=== PATIENT | female | born 1960 | race Caucasian/White ===

== ENCOUNTER 2016-04-28 12:43 | Emergency (ER) | payer OTHER ==
--- NOTE | 2016-04-28 12:55 | EKG Report ---
Test Performed on : 04/28/2016 12:52:40 PM Test Reason : cp Blood Pressure : / mmHG Vent. Rate : 218 BPM Atrial Rate : 110 BPM P-R Int : 000 ms QRS Dur : 082 ms QT Int : 250 ms P-R-T Axes : 053 017 094 degrees QTc Int : 476 ms Undetermined rhythm T wave abnormality, consider lateral ischemia Abnormal ECG When compared with ECG of 08-APR-2015 22:49, Current undetermined rhythm precludes rhythm comparison, needs review Criteria for Inferior infarct are no longer present ST no longer depressed in Inferior leads ST no longer elevated in Lateral leads Nonspecific T wave abnormality, worse in Anterolateral leads Unconfirmed Result
[2016-04-28] MEDS ORDERED: NORCO-7.5 PO ONE ×2 (13:15→16:34)
[2016-04-28] MEDS ORDERED: ASPIRIN PO STA (13:15)
--- NOTE | 2016-04-28 13:29 | PROVIDER DOCUMENTATION ---
HPI-General Adult - General Chief Complaint: Chest Pain Stated Complaint: BACK/NECK/LEG PAIN Time Seen by Provider: 04/28/16 13:01 Source: patient Allergies/Adverse Reactions: Patient Allergies Allergy/AdvReac Type Severity Reaction Status Date / Time Penicillins Allergy Intermediate swelling, Verified 04/05/16 20:36 rash latex Allergy RASH Verified 04/05/16 20:36 Home Medications: Home Medication List Medication Instructions Recorded Confirmed Last Taken Type Hydrocodone/APAP 5 mg/325 mg 1 each PO Q6H PRN PRN #10 tablet 04/06/16 Unknown Rx [[place]-5] Hydrocodone/APAP 5 mg/325 mg 1 each PO Q6H PRN PRN #10 tablet 04/28/16 Unknown Rx [[place]-5] - History of Present Illness -Gen Adult Nature of Presenting Problems: patient is a 55 y/o F that presents to the Er with one week of pain all over including ( chest, back, neck, arms, and knees( bilaterally)). patient has some shortness of breath. Denies cough/congestion, fever/chills, or n/v/d. Patient had cardiac stent ( 2 stents). Worried she is having cardiac issues. Location of Pain/Injury: reports: generalized Pain Radiation: reports: no radiation Quality of Pain: reports: aching Severity: reports: mild, moderate Onset/Duration: reports: gradual, 1 week ago Timing: reports: still present, constant Context/Activities at Onset: reports: none Modifying Factors: worse with: movement Associated Symptoms: reports: back/neck pain, chest pain, joint pain, muscle aches, shortness of breath. denies: cough, diaphoresis, diarrhea, dizziness, fever/chills, genitourinary problems, headaches, nausea, vomiting Similar Symptoms Previously?: Yes Recently seen or treated by another doctor?: No Review of Systems - Adult - REVIEW OF SYSTEMS - ADULT Constitutional: denies: chills, fever Eyes: denies: decreased vision, blurred vision, double vision Ears, Nose, Mouth & Throat: denies: ear pain, sinus problem, throat pain, throat swelling Cardiovascular: reports: chest pain. denies: palpitations, syncope Respiratory: reports: shortness of breath. denies: cough, wheezing Gastrointestinal: denies: abdominal pain, diarrhea, frequent heartburn, nausea, vomiting Genitourinary: reports: no symptoms reported Musculoskeletal: reports: bone pain, back pain, joint pain, muscle aches, neck pain Integumentary: reports: no symptoms reported Neurological: denies: dizziness/vertigo, headache/migraines, seizure Psychiatric: reports: no symptoms reported Endocrine: reports: no symptoms reported Hematologic/Lymphatic: reports: no symptoms reported Allergic/Immunologic: reports: no symptoms reported All Other Systems: Reviewed and Negative Past History - Adult - PAST MEDICAL HISTORY-ADULT Review of Records: reports: Old Records Reviewed, Nursing Assessment Review, Medications Reviewed Cardiovascular: reports: CAD, HTN, hyperlipidemia, MS Respiratory: reports: asthma Musculoskeletal: reports: chronic pain, intervertebral disc disease, neck/back injury Neurological: Psychiatric: reports: anxiety Endocrine/Immune: reports: Diabetes - PRIOR SURGERIES/PROCEDURES Surgical/Procedure History: reports: cholecystectomy, hysterectomy, other ( tubal ligation) - IMMUNIZATION STATUS Childhood Immunizations: See Nurse Assessment Flu Vaccine: See Nurse Assessment - FAMILY HISTORY Family History: reviewed, not pertinent - SOCIAL HISTORY Smoking: cigarettes, less than 1 pack/day Alcohol Use Frequency: occasionally Living Situation: family Physical Exam-General - PHYSICAL EXAM-ADULT Initial Vital Signs Reviewed: Yes - CONSTITUTIONAL General Appearance: alert, anxious - EYES Eyes: PERRL/EOMI, pink conjunctivae - HEAD, EARS, NOSE, MOUTH & THROAT HENMT: normocephalic/atraumatic, moist mucous membranes, normal ENT inspection - NECK Neck: full range of motion, normal inspection. negative: lymphadenopathy - RESPIRATORY Respiratory: lungs clear, normal breath sounds, no respiratory distress, no accessory muscle use - CARDIOVASCULAR Cardiovascular: no gallop, no murmur, tachycardia - GASTROINTESTINAL (ABDOMEN) Abdominal Exam: normal bowel sounds, non tender, soft, no organomegaly, no pulsatile mass - MUSCULOSKELETAL Extremity: normal range of motion, normal inspection, no pedal edema, normal capillary refill, pelvis stable - SKIN Integumentary: normal color, warm/dry - NEUROLOGIC Neurologic: grossly normal, no motor/sensory deficits - PSYCHIATRIC Psych/Mental Status: oriented x 3, anxious Progress - PLAN OF CARE/RESULTS Progress/Plan/Lab Results: plan of care-labs, cxr, ekg, cspine, meds 1454-due to elevated d-dimer, ct angio pe study, venous Doppler bilateral legs Vital Signs Temp Pulse Resp BP Pulse Ox 04/28/16 16:05 80 16 131/86 100 04/28/16 12:44 97.6 F 117 H 22 181/122 100 Penicillins Allergy (Intermediate, Verified 04/05/16 20:36) swelling, rash latex Allergy (Verified 04/05/16 20:36) RASH Hydrocodone/APAP 5 mg/325 mg [[place]-5] 1 each PO Q6H PRN PRN #10 tablet Hydrocodone/APAP 5 mg/325 mg [[place]-5] 1 each PO Q6H PRN PRN #10 tablet I&O 04/27/16 04/28/16 04/29/16 06:59 06:59 06:59 Output Total 30 Balance -30 Laboratory 04/28/16 04/28/16 04/28/16 15:00 15:00 13:49 WBC RBC Hgb Hct MCV MCH MCHC RDW Std Deviation Plt Count MPV Immature Gran % (Auto) Neut % (Auto) Lymph % (Auto) [place] % (Auto) Eos % (Auto) Baso % (Auto) Immature Gran # (Auto) Neut # (Auto) Lymph # (Auto) [place] # (Auto) Eos # (Auto) Baso # (Auto) PT INR PTT (Act[place] FS) D-Dimer Sodium Potassium Chloride Carbon Dioxide Anion Gap BUN Creatinine Estimated GFR/1.73 m2 BUN/Creatinine Ratio Glucose Calculated Osmolality Calcium Magnesium Total Bilirubin AST ALT Alkaline Phosphatase Creatine Kinase 19 L Troponin T < 0.010 Drm-[id number]-[id number] Pept Total Protein Albumin Globulin Albumin/Globulin Ratio Urine Source CLEAN CATCH Urine Color YELLOW Urine Turbidity CLEAR Urine pH 5.5 Ur Specific [place] 1.016 Urine Protein TRACE A Ur Glucose (Stick) NEGATIVE Ur Ketones (Stick) NEGATIVE Urine Blood NEGATIVE Urine Nitrite NEGATIVE Urine Bilirubin NEGATIVE Urobilinogen Dipstick NORMAL Urine Leukocytes TRACE A Urine WBC (Auto) <10 Urine RBC (Auto) <10 U Epithel Cells (Auto) <10 Urine Bacteria (Auto) 1+ 04/28/16 04/28/16 04/28/16 13:22 13:22 13:22 WBC RBC Hgb Hct MCV MCH MCHC RDW Std Deviation Plt Count MPV Immature Gran % (Auto) Neut % (Auto) Lymph % (Auto) [place] % (Auto) Eos % (Auto) Baso % (Auto) Immature Gran # (Auto) Neut # (Auto) Lymph # (Auto) [place] # (Auto) Eos # (Auto) Baso # (Auto) PT 10.2 INR 1.00 PTT (Actin FS) 28.6 D-Dimer Sodium Potassium Chloride Carbon Dioxide Anion Gap BUN Creatinine Estimated GFR/1.73 m2 BUN/Creatinine Ratio Glucose Calculated Osmolality Calcium Magnesium Total Bilirubin AST ALT Alkaline Phosphatase Creatine Kinase Troponin T < 0.010 Mis-G-Gmqinejsuox Pept 1184 H Total Protein Albumin Globulin Albumin/Globulin Ratio Urine Source Urine Color Urine Turbidity Urine pH Ur Specific [place] Urine Protein Ur Glucose (Stick) Ur Ketones (Stick) Urine Blood Urine Nitrite Urine Bilirubin Urobilinogen Dipstick Urine Leukocytes Urine WBC (Auto) Urine RBC (Auto) U Epithel Cells (Auto) Urine Bacteria (Auto) 04/28/16 04/28/16 04/28/16 13:22 13:22 13:22 WBC 7.37 RBC 4.33 Hgb 11.3 L Hct 35.6 L MCV 82.2 MCH 26.1 L MCHC 31.7 L RDW Std Deviation 14.8 H Plt Count 513 H MPV 8.7 Immature Gran % (Auto) 0.0 Neut % (Auto) 76.4 H Lymph % (Auto) 14.5 L [place] % (Auto) 7.3 Eos % (Auto) 1.5 Baso % (Auto) 0.3 Immature Gran # (Auto) 0.00 Neut # (Auto) 5.63 Lymph # (Auto) 1.07 L [place] # (Auto) 0.54 Eos # (Auto) 0.11 Baso # (Auto) 0.02 PT INR PTT (Actin FS) D-Dimer 7.21 H Sodium 132 L Potassium 4.0 Chloride 95 L Carbon Dioxide 22 L Anion Gap 15 BUN 15 Creatinine 0.8 Estimated GFR/1.73 m2 > 60 BUN/Creatinine Ratio 19 Glucose 126 H Calculated Osmolality 267 Calcium 9.2 Magnesium 1.9 Total Bilirubin 0.48 AST 13 ALT 14 Alkaline Phosphatase 125 H Creatine Kinase 20 L Troponin T Wnm-[id number]-Jcydtqflpfl Pept Total Protein 8.3 Albumin 3.3 L Globulin 5.0 Albumin/Globulin Ratio 0.7 Urine Source Urine Color Urine Turbidity Urine pH Ur Specific [place] Urine Protein Ur Glucose (Stick) Ur Ketones (Stick) Urine Blood Urine Nitrite Urine Bilirubin Urobilinogen Dipstick Urine Leukocytes Urine WBC (Auto) Urine RBC (Auto) U Epithel Cells (Auto) Urine Bacteria (Auto) Orders Category Date Time Status Cardiac Monitoring DIRECTED Care 04/28/16 13:15 Active Saline Loc NOW Care 04/28/16 13:15 Active ANGIOGRAM/PULMONARY ARTERIES [CT] Stat Exams 04/28/16 14:54 Completed CERVICAL SPINE COMPLETE [RAD] Stat Exams 04/28/16 13:15 Draft CHEST-2 VIEWS [RAD] Stat Exams 04/28/16 13:15 Draft CBC WITH ELECTRONIC DIFF [HEME] Stat Lab 04/28/16 13:22 Completed CK PROFILE [SP CHEM] Stat Lab 04/28/16 13:22 Completed CK PROFILE [SP CHEM] Stat Lab 04/28/16 15:00 Completed COMPREHENSIVE METABOLIC PANEL [CHEM] Stat Lab 04/28/16 13:22 Completed D-DIMER [CHEM] Stat Lab 04/28/16 13:22 Completed MAGNESIUM [CHEM] Stat Lab 04/28/16 13:22 Completed PRO B-NATRIURETIC PEPTIDE Stat Lab 04/28/16 13:22 Completed PROTIME WITH INR [COAG] Stat Lab 04/28/16 13:22 Completed PTT [COAG] Stat Lab 04/28/16 13:22 Completed TROPONIN T Stat Lab 04/28/16 13:22 Completed TROPONIN T Stat Lab 04/28/16 15:00 Completed UA NIMS W/REFLEX CULT [URINALYSIS] Stat Lab 04/28/16 13:49 Completed URINE CULTURE [RM] Routine Lab 04/28/16 15:28 Received Aspirin Med 04/28/16 13:15 Discontinued 325 mg PO STAT STA Hydrocodone/APAP 7.5 mg/325 mg [[place]-7.5] Med 04/28/16 13:15 Discontinued 1 each PO NOW ONE EKG [EKG] Stat Ther 04/28/16 12:49 Draft US [Venous U/S Bilateral Legs] [CV] Stat Ther 04/28/16 14:54 Completed pt will be d/c home f/u with pcp or surgeon for enlarged lymph nodes. pt was clinically stable, rx given - EKG 1 Time of EKG reading by physician:: 12:52 EKG Read and Signed by:: Mei San EKG Interpretation (*Must complete 3 of following elements*): Abnormal Rate: 218 (rate is about 110, picking up extra t wave) Rhythm: sinus tachycardia [place]: normal QRS: normal ST Wave: non-specific ST changes - XRAY 1 XRAY Study: Chest Impression: Normal XRAY Interpretation: NML 2 XRAY Study: C-Spine Impression: Abnormal XRAY Interpretation: DDD, no fx - CT/MRI 1 CT Study: Angiogram (PE study) Impression: Abnormal CT Results: No PE, axillary adenopathy, splenomegaly, and coronary artherosclerosis - ULTRASOUND (By Radiology) 1 US Study: Lower Ext Impression: Normal US Results: no dvt bilaterally Departure - Departure Time of Disposition Order: 16:19 DIAGNOSIS: Enlarged lymph nodes, Generalized pain, Splenomegaly Disposition: HOME 01 Certified Medical Emergency: Emergent Condition: Stable Additional Instructions: follow up with your doctor for pain control and enlarged lymph nodes. ED Follow Up Instructions: You have been treated by a care provider in the Emergency Department. These instructions are being provided to you so you can have an understanding of how to care for yourself upon discharge. Upon discharge from the Emergency Department, you are responsible for making arrangements for follow-up care by a physician of your choice. Take all prescribed medications as directed. Return to the Emergency Department immediately for any new or worsening symptoms. You may call the Physician Referral phone number at [phone] to obtain a list of Physicians who are taking new patients. Referrals: None,PCP [Primary Care Provider] - Robin Murdock MD [STAFF PHYSICIAN] - Call for Appoint. 1-2days Fadumo Ortiz MD [STAFF PHYSICIAN] - Call for Appoint. 1-2days Instructions: Muscle Pain, Adult Attestation - Scribe Verification/Attestation Scribe:: Kiran Solitario Acting as Scribe for:: Mei San Scribe documention review:: This chart was documented by a scribe and accurately reflects the service the provider performed and the decisions made by the provider. Physician Attestation - Physician Attestation I, the provider, attest to the following statement:: Mei San Physician documentation Attestation:: This documentation recorded by the scribe accurately reflects the service I personally performed and the decisions made by me.
[2016-04-28 13:35] LABS: MANUAL DIFF NEEDED? NO
[2016-04-28 13:42] LABS: BASO% 0.3 % (0.0-0.8); EOS# 0.11 X1000 (0.0-0.7); EOS% 1.5 % (0.0-10.0); HEMATOCRIT 35.6 % (37.0-47.0); HEMOGLOBIN 11.3 g/dL (12.0-16.0); LYMPH# 1.07 X1000 (1.2-3.4); LYMPH% 14.5 % (20.5-51.1); MCH 26.1 PG (27-31); MCHC 31.7 g/dL (33-37); MCV 82.2 FL (81-99); MONO# 0.54 X1000 (0.11-0.59); MONO% 7.3 % (1.7-9.3); MPV 8.7 FL (7.4-10.4); NEUT% 76.4 % (42.2-75.2); PLT 513 X1000 (130-400); RBC 4.33 XMIL (4.2-5.4)
[2016-04-28 14:02] LABS: URINE MICRO REVIEW NEEDED? NO; URINE SOURCE CLEAN CATCH
[2016-04-28 14:07] LABS: BILIRUBIN URINE NEGATIVE (NEGATIVE); BLOOD URINE NEGATIVE (NEGATIVE); COLOR YELLOW; GLUCOSE URINE NEGATIVE (NEGATIVE); LEUKOCYTES URINE TRACE (NEGATIVE); NITRITE URINE NEGATIVE (NEGATIVE); PH URINE 5.5; PROTEIN URINE TRACE mg/dL (NEGATIVE); SP GRAVITY URINE 1.016; TURBIDITY URINE CLEAR (CLEAR); UROBILINOGEN URINE NORMAL (NORMAL)
[2016-04-28 14:09] LABS: UR EPITHELIAL CELLS <10 /HPF (<10); URINE BACTERIA 1+ /HPF; URINE CULTURE NEEDED? YES; URINE RBC <10 /HPF (<10); URINE WBC <10 /HPF (<10)
[2016-04-28 14:28] LABS: AGAP 15; ALBUMIN 3.3 g/dL (3.5-5.0); ALKALINE PHOSPHATASE 125 U/L (32-104); BUN 15 mg/dL (8-22); CALCIUM 9.2 mg/dL (8.8-10.2); CHLORIDE 95 mmol/L (98-107); CK PROFILE 20 U/L (24-173); COSMO 267; GOT 13 U/L (10-30); GPT 14 U/L (10-36); MAGNESIUM 1.9 mg/dL (1.5-2.7); PROTIME 10.2 Seconds (9.2-11.7); PTT 28.6 Seconds (22.0-36.0); SODIUM 132 mmol/L (136-145); TCO2 22 mmol/L (25-35); TOTAL BILIRUBIN 0.48 mg/dL (0.20-1.00); TOTAL PROTEIN 8.3 g/dL (6.3-8.3)
--- NOTE | 2016-04-28 14:29 | Diag Imaging Result Document ---
PROCEDURE NAME: CHEST-2 VIEWS - 04/28/2016 CHEST X-RAY, 2 VIEWS: COMPARISON: 04/08/2015. FINDINGS: The lungs are normally expanded and clear. Heart size and mediastinal contours are normal. No pneumothorax or pleural effusion. IMPRESSION: Negative exam.
--- NOTE | 2016-04-28 14:32 | Diag Imaging Result Document ---
PROCEDURE NAME: CERVICAL SPINE COMPLETE - 04/28/2016 CERVICAL SPINE, 6 VIEWS: COMPARISON: 03/22/2013. FINDINGS: There may be some early disk degeneration at C4-5 and C5-6. Alignment is anatomic. No fracture or subluxation. Vertebral body heights are preserved. IMPRESSION: Early degenerative disk disease. No acute disease.
--- NOTE | 2016-04-28 15:46 | Diag Imaging Result Document ---
PROCEDURE NAME: ANGIOGRAM/PULMONARY ARTERIES - 04/28/2016 CT OF THE CHEST WITH INTRAVENOUS CONTRAST AND CLARITY: FINDINGS: There are no filling defects in the pulmonary arteries. The study is somewhat suboptimal due to beam-hardening artifact from the patient's arm. The aorta is not distended and there is no evidence of dissection. There are calcifications in the left anterior descending and circumflex artery. There is atelectasis versus fibrosis in the lingula. There is some patchy air trapping present in both lungs. No focal consolidation is present. There are no previous studies. There is no evidence of significant mediastinal or hilar adenopathy. There are, however, large axillary nodes bilaterally. There is a node in the left axilla on image 46 measuring over 2.5 cm. No abnormal fluid collections are present. IMPRESSION: 1. No evidence of pulmonary emboli. 2. Axillary adenopathy. 3. Coronary atherosclerosis. 4. Splenomegaly.
[2016-04-28 16:44] VITALS: BP 121/75
--- NOTE | 2016-04-29 16:31 | Extremity Venous Study ---
PROCEDURE NAME: Venous U/S Bilateral Legs - 04/28/2016 REFERRING PHYSICIAN: Dr. San. READING PHYSICIAN: Dr. Emery. SALES SUPERVISOR: Griffin. INDICATION: Leg pain and elevated D-dimer. FINDINGS: The deep and superficial veins of both lower extremities were imaged throughout their course. All are compressible with forward flow. No thrombus is appreciated. There is some fluid noted behind the left knee. INTERPRETATION: No evidence of deep or superficial venous thrombosis of either lower extremity. There may be a small cystic structure behind the left knee.
== END 2016-04-28 17:48 | disposition home or self-care (01) ==
LOC: ED 12:43
DX: R16.1 Splenomegaly, not elsewhere classified (principal); R59.0 Localized enlarged lymph nodes; R52 Pain, unspecified; R94.31 Abnormal electrocardiogram [ECG] [EKG]; R07.9 Chest pain, unspecified; M54.9 Dorsalgia, unspecified; M54.2 Cervicalgia; M79.602 Pain in left arm; M79.601 Pain in right arm; M25.562 Pain in left knee; M25.561 Pain in right knee; R06.02 Shortness of breath; M79.1 Myalgia; R00.0 Tachycardia, unspecified; I25.10 Atherosclerotic heart disease of native coronary artery without angina pectoris; I10 Essential (primary) hypertension; E78.5 Hyperlipidemia, unspecified; I25.2 Old myocardial infarction; G89.29 Other chronic pain; E11.9 Type 2 diabetes mellitus without complications; F17.210 Nicotine dependence, cigarettes, uncomplicated; Z95.5 Presence of coronary angioplasty implant and graft
CPT/HCPCS: 36415; 71020; 71275; 72050; 80053; 81001; 82550; 83735; 83880; 84484; 85025; 85379; 85610; 85730; 87088; 93005; 93970; 99284; Q9967

== ENCOUNTER 2018-08-31 10:51 | Inpatient (IN) ==
[2018-08-31 11:16] LABS: BILIRUBIN URINE NEGATIVE (NEGATIVE); BLOOD URINE 4+ (NEGATIVE); CLARITY VERY CLOUDY (CLEAR); COLOR YELLOW; GLUCOSE URINE NEGATIVE (NEGATIVE); KETONE URINE TRACE mg/dL (NEGATIVE); LEUKOCYTES URINE TRACE (NEGATIVE); NITRITE URINE NEGATIVE (NEGATIVE); PROTEIN URINE TRACE mg/dL (NEGATIVE); URINE BACTERIA 1+ /HFP; URINE CAST NONE SEEN /LPF; URINE CRYSTAL NONE SEEN /HPF; URINE EPITHELIAL CELLS >10 /HPF (<10); URINE RBC TNTC /HPF (<10); URINE WBC <10 /HPF (<10); URINE YEAST NONE SEEN /HPF; UROBILINOGEN URINE NORMAL
[2018-08-31 11:17] LABS: URINE SOURCE CLEAN CATCH
[2018-08-31 11:27] LABS: BASO# 0.01 X1000 (0.0-0.2); BASO% 0.8 % (0.0-0.8); EOS# 0.02 X1000 (0.0-0.7); EOS% 1.7 % (0.0-10.0); HEMATOCRIT 32.2 % (37.0-47.0); HEMOGLOBIN 10.6 g/dL (12.0-16.0); LYMPH# 0.79 X1000 (1.2-3.4); LYMPH% 66.4 % (20.5-51.1); MCH 26.1 PG (27-31); MCHC 32.9 g/dL (33-37); MCV 79.3 FL (81-99); MONO# 0.26 X1000 (0.11-0.59); MONO% 21.8 % (1.7-9.3); MPV 8.9 FL (7.4-10.4); NEUT# 0.11 X1000 (1.4-6.5); NEUT% 9.3 % (42.2-75.2); PLT 160 X1000 (130-400); RBC 4.06 XMIL (4.2-5.4); RDW 16.1 % (11.5-14.5); WBC 1.19 X1000 (4.8-10.8)
[2018-08-31 11:30] LABS: ALBUMIN 3.8 g/dL (3.5-5.0); CALCIUM 8.7 mg/dL (8.8-10.2); POTASSIUM 3.7 mmol/L (3.5-5.1); TOTAL BILIRUBIN 0.9 mg/dL (0.20-1.00); TOTAL PROTEIN 7.3 g/dL (6.3-8.3)
[2018-08-31 12:00] LABS: ANISOCYTOSIS 1+; LYMPHS 60 % (21-51); MICROCYTOSIS 1+; MONO 20 % (1-9); SEGS 20 % (42-75)
--- NOTE | 2018-08-31 12:08 | Diag Imaging Result Doc PS360 ---
EXAM: CT RENAL STONE SEARCH - 08/31/2018 HISTORY: pain TECHNIQUE: CT renal stone search without contrast COMPARISON: 06/05/2015 FINDINGS: There are multiple nonobstructing stones in the bilateral kidneys. The largest of these is located at the lower right kidney and measures 13 mm. There is no obstructing renal stone, hydronephrosis, or perinephric edema identified. There is no evidence of bowel obstruction. The appendix is not visualized, but there is no indication of pericecal inflammation. There is no free air. There is splenomegaly which has increased. The spleen measures approximately 13.4 x 5.1 x 16.3 cm. The gallbladder surgically absent. There are atherosclerotic calcifications noted. There are lumbar spine degenerative changes noted. IMPRESSION: Nonobstructing stones in bilateral kidneys. No evidence of obstructing renal stone or hydronephrosis. Splenomegaly. This exam was performed using automated exposure control, adjustment of mA or kV according to patient size, and/or use of iterative reconstruction technique. Electronically signed by Jomar Barrera 08/31/2018 12:06 PM
--- NOTE | 2018-08-31 13:18 | PROVIDER DOCUMENTATION ---
This chart was entered by Faye Murdock Scribe, acting as scribe for Dontrell Roberts MD. HPI-Abdominal Pain/GI Problem - General Chief Complaint: Female Stated Complaint: ABD PAIN Time Seen by Provider: 08/31/18 11:26 Source: patient, EMS Allergies/Adverse Reactions: Patient Allergies Allergy/AdvReac Type Severity Reaction Status Date / Time Penicillins Allergy Intermediate swelling, Verified 06/13/18 09:04 rash latex Allergy RASH Verified 06/13/18 09:04 Home Medications: Home Medication List Medication Instructions Recorded Confirmed Last Taken Type NK [No Home Medications] 06/13/18 06/13/18 Unknown History - History of Present Illness-ABD Nature of Presenting Problems: 58 yowf presents to the ed with c/o abd pain onset 4 days. pt sts she is recently homeless. pt has pain in RLQ and suprapubic. pt has leukopenia and is unaware of sts doesnt remember any telling her in the past she has leukopenia. Abdominal Pain Onset Location: reports: RLQ, suprapubic Quality of Pain: reports: cramping Severity in ED: reports: moderate Onset/Duration: reports: 4 days ago Timing: reports: still present, intermittent, getting worse Activities at Onset: reports: light activity Exposure to sick contacts?: No Modifying Factors: improves with: nothing. worse with: palpation Associated Symptoms: reports: loss of appetite. denies: back/neck pain, chest pain, diarrhea, fever/chills, headaches, nausea, vomiting Last BM: unsure Dark Stools Present?: reports: none noticed Rectal Bleeding: reports: none # of Diarrhea Episodes: 0 Rectal Pain: reports: none # of Vomiting Episodes: 0 Emesis Description: reports: none Bruising or Bleeding Gums?: No Similar Symptoms Previously?: No Recently seen or treated by another doctor?: No Review of Systems - Adult - REVIEW OF SYSTEMS - ADULT Constitutional: denies: chills, fever Eyes: reports: no symptoms reported Ears, Nose, Mouth & Throat: reports: no symptoms reported Cardiovascular: denies: chest pain, palpitations Respiratory: denies: shortness of breath, wheezing Gastrointestinal: reports: see HPI, abdominal pain, poor appetite. denies: venice rrhea, nausea, vomiting Genitourinary: reports: no symptoms reported Musculoskeletal: denies: back pain, neck pain Integumentary: reports: no symptoms reported Neurological: reports: no symptoms reported Psychiatric: reports: no symptoms reported Endocrine: reports: no symptoms reported Hematologic/Lymphatic: reports: no symptoms reported Allergic/Immunologic: reports: no symptoms reported All Other Systems: Reviewed and Negative Past History - Adult - PAST MEDICAL HISTORY-ADULT Review of Records: reports: Old Records Reviewed, Nursing Assessment Review, Medications Reviewed, Social history reviewed & non-contributory. Major Childhood Illnesses: reports: denies history Cardiovascular: reports: CAD, HTN, hyperlipidemia, [place] Respiratory: reports: asthma Gastrointestinal: reports: denies history Obstetrical/Gynecological: reports: denies history Genitourinary: reports: denies history Musculoskeletal: reports: arthritis, chronic pain, intervertebral disc disease, neck/back injury Hand Dominance: Right Handed Neurological: reports: denies history Psychiatric: reports: anxiety, psychiatric problems (panic attacks) Endocrine/Immune: reports: Diabetes Diabetes Type: Type 2 Other Conditions: reports: denies history - PRIOR SURGERIES/PROCEDURES Surgical/Procedure History: reports: cholecystectomy, cardiac stent, hysterectomy, other (tubal ligation) - PRIOR HOSPITALIZATIONS Prior Hospitalizations: reports: none - IMMUNIZATION STATUS Childhood Immunizations: See Nurse Assessment Flu Vaccine: See Nurse Assessment - FAMILY HISTORY Family History: reviewed, not pertinent - SOCIAL HISTORY Smoking: cigarettes, greater than 1 pack/day Provider spent 3-5 mins advising pt. on dangers of tobacco.: Discussed manners to quit use, and f/u contacts for add'l counseling. Substance Use: denies Alcohol Use Frequency: never Living Situation: homeless Physical Exam-General - PHYSICAL EXAM-ADULT Initial Vital Signs Reviewed: Yes - CONSTITUTIONAL General Appearance: alert, mild distress, thin - EYES Eyes: PERRL/EOMI - HEAD, EARS, NOSE, MOUTH & THROAT HENMT: other (no teeth). negative: moist mucous membranes - NECK Neck: non-tender, full range of motion, normal inspection - RESPIRATORY Respiratory: chest non-tender, lungs clear, normal breath sounds - CARDIOVASCULAR Cardiovascular: normal peripheral pulses, regular rate, rhythm - GASTROINTESTINAL (ABDOMEN) Abdominal Exam: normal bowel sounds, soft, no organomegaly, no pulsatile mass, guarding, tenderness (rlq and rt sided suprapubic) - LYMPHATIC Lymphatic: no adenopathy - MUSCULOSKELETAL Back Exam: normal inspection, no CVA tenderness, no vertebral tenderness Extremity: no pedal edema, no calf tenderness, normal capillary refill, pelvis stable, deformity (due to RA) - SKIN Integumentary: normal color, normal turgor, warm/dry - NEUROLOGIC Neurologic: grossly normal, no motor/sensory deficits - PSYCHIATRIC Psych/Mental Status: normal mood/affect, normal thought content, normal thought process, oriented x 3 Progress - PLAN OF CARE/RESULTS Progress/Plan/Lab Results: Vital Signs - 8 hr 08/31/18 10:52 Temperature 98 F Pulse Rate 90 Respiratory Rate 18 Blood Pressure 127/80 O2 Sat by Pulse Oximetry 100 Laboratory Results - last 24 hr 08/31/18 08/31/18 08/31/18 11:00 11:00 11:00 WBC 1.19 L RBC 4.06 L Hgb 10.6 L Hct 32.2 L MCV 79.3 L MCH 26.1 L MCHC 32.9 L RDW Std Deviation 16.1 H Plt Count 160 MPV 8.9 Immature Gran % (Auto) 0.0 Neut % (Auto) 9.3 L Lymph % (Auto) 66.4 H Donley % (Auto) 21.8 H Eos % (Auto) 1.7 Baso % (Auto) 0.8 Immature Gran # (Auto) 0.00 Neut # (Auto) 0.11 L* Lymph # (Auto) 0.79 L Donley # (Auto) 0.26 Eos # (Auto) 0.02 Baso # (Auto) 0.01 Sodium 139 Potassium 3.7 Chloride 104 Carbon Dioxide 23 L Anion Gap 12 BUN 12 Creatinine 1.0 H Estimated GFR/1.73 m2 57 BUN/Creatinine Ratio 12 Glucose 221 H Calculated Osmolality 284 Calcium 8.7 L Total Bilirubin 0.90 AST 11 ALT 7 L Alkaline Phosphatase 94 Total Protein 7.3 Albumin 3.8 Globulin 4.0 Albumin/Globulin Ratio 1.0 Urine Source CLEAN CATCH Urine Color YELLOW Urine Clarity VERY CLOUDY A Urine pH 5.0 Ur Specific [place] 1.020 Urine Protein TRACE A Urine Ketones TRACE Urine Blood 4+ Urine Nitrite NEGATIVE Urine Bilirubin NEGATIVE Urine Urobilinogen NORMAL Urine Microscopic RBC TNTC A Urine WBC TRACE A Urine Microscopic WBC <10 Ur Epithelial Cells >10 A Urine Crystals NONE SEEN Urine Bacteria 1+ Urine Casts NONE SEEN Urine Yeast NONE SEEN Urine Glucose NEGATIVE Orders Category Date Time Status CBC WITH DIFF [HEME] Stat Lab 08/31/18 11:00 Results COMPREHENSIVE METABOLIC PANEL [CHEM] Stat Lab 08/31/18 11:00 Completed LDH [CHEM] Stat Lab 08/31/18 11:[address] W/POSS RFLX CULT [URINALYSIS] Stat Lab 08/31/18 11:00 Completed URINE CULTURE [RM] Routine Lab 08/31/18 11:17 Ordered Result Diagrams: 08/31/18 11:00 08/31/18 11:00 - REASSESSMENT Reassessment #1 Time Reassessed: 12:07 Status: unchanged - CT/MRI 1 CT Study: Head Impression: See EMR Report (EXAM: CT RENAL STONE SEARCH - 08/31/2018 HISTORY: pain TECHNIQUE: CT renal stone search without contrast COMPARISON: 06/05/2015 FINDINGS: There are multiple nonobstructing stones in the bilateral kidneys. The largest of these is located at the lower right kidney and measures 13 mm. There is no obstructing renal stone, hydronephrosis, or perinephric edema identified. There is no evidence of bowel obstruction. The appendix is not visualized, but there is no indication of pericecal inflammation. There is no free air. There is splenomegaly which has increased. The spleen measures approximately 13.4 x 5.1 x 16.3 cm. The gallbladder surgically absent. There are atherosclerotic calcifications noted. There are lumbar spine degenerative changes noted. IMPRESSION: Nonobstructing stones in bilateral kidneys. No evidence of obstructing renal stone or hydronephrosis. Splenomegaly. This exam was performed using automated exposure control, adjustment of mA or kV according to patient size, and/or use of iterative reconstruction technique. Electronically signed by Jomar Barrera 08/31/2018 12:06 PM 08/31/18 1206 Interpreting Physician: Jomar Barrera MD Dictated Date/Time: 08/31/18 [id number] cc: Dontrell Roberts MD; None,PCP) - CONSULTS/PCP/HOSPITALIST Notification #1 *Consult/PCP/Hospitalist*: dr tiwari infection control Time Discussed: 11:37 (leukopenia) Reason/Comments: phone consult Departure - Departure Date of Disposition Decision: 08/31/18 Time of Disposition Decision: 13:15 DIAGNOSIS: Tobacco use disorder, Right lower quadrant abdominal pain Leukopenia Qualifiers: Leukopenia type: unspecified Qualified Code(s): D72.819 - Decreased white blood cell count, unspecified Disposition: ADMITTED INPATIENT 09 Certified Medical Emergency: Emergent Condition: Serious Referrals and Follow-Ups: None,PCP [Primary Care Provider] - - Critical Care Note This patient required my direct & personal management of CC.: Yes Total Time (mins): 36 Critical Care Statement: This patient required my direct personal management to treat or rule out processes, the absence of which, could potentiallly result in sudden, clinically significant life or limb threatening deterioration. Attestation - Physician/ GRAHAM Attestation Patient care was provided by Advanced Practice Provider:: No The physician spent face to face time with patient:: Yes Advanced Practice Provider documentation review:: Supervising physician onsite and consulted in the evaluation and care of this patient. The physician did have a face to face encounter with the patient. This chart was documented by the indicated scribe, (Faye Murdock Scribe) and accurately reflects the services I performed and decisions made by me, Dontrell Roberts MD, as attested by the provider's signature.
[2018-08-31] MEDS ORDERED: ZOFRAN IV PRN (14:37)
[2018-08-31] MEDS ORDERED: TYLENOL PO PRN (14:37)
[2018-08-31] MEDS ORDERED: ZOSYN 3.375 GM in NS 50 ML IV SCH (14:45)
[2018-08-31] MEDS ORDERED: VANCOMYCIN IV PER PHARMACY MISC SCH (14:45)
[2018-08-31] MEDS: NS 1,000 ML IV SCH (15:05)
[2018-08-31] MEDS: LEVAQUIN 750 MG/D5W 750 MG/150 ML IVPB IV SCH (16:42)
[2018-08-31] MEDS: NORCO-5 PO PRN (18:43)
[2018-08-31 19:01] LABS: RETIC% 1.35 % (0.8-2.1); RETIC-HE 29.4 PG (28.2-36.6)
[2018-08-31 19:21] LABS: IRON SATURATION 15 %; TIBC 168 ug/dL; TOTAL IRON 25 ug/dL (49-151); UNBOUND IRON 143 ug/dL (112-346)
[2018-08-31 19:40] LABS: FERRITIN 95 ng/mL (13-150)
[2018-08-31] MEDS: VANCOMYCIN 1.3 GM in NS 250 ML IV SCH (20:27)
[2018-09-01] MEDS: NORCO-5 PO PRN ×4 (02:37→22:25)
--- NOTE | 2018-09-01 04:41 | HISTORY AND PHYSICAL ---
CHIEF COMPLAINT: Abdominal pain for the past 4 days. SUBJECTIVE: Patient is a 58-year-old female who presented to the hospital with abdominal pain for the past 4 or 5 days. She notes that she has recently become homeless. She has been having pain in the right lower quadrant suprapubic area. Denies any previous medical history. Denies being told that her white count was abnormal. ALLERGIES: 1. Penicillin causing swelling. 2. Latex rash. MEDICATIONS: She is on no current medications. PAST MEDICAL HISTORY: Significant for coronary artery disease, hypertension, hyperlipidemia, and history of MS. She has chronic arthritis, history of diabetes. She has had neck and back pain, but she is not on any current medications or treatment for any of this. REVIEW OF SYSTEMS: Denies any fevers, chills, cough, or congestion. States she has had abdominal pain right lower quadrant, suprapubic. She has had a decreased appetite. Denies any fevers, chills, dysuria, or urinary frequency. Denies night sweats. Denies weight loss or weight gain. Denies skin rashes. Denies headaches, or blurred vision. Denies chest pain or palpitations. Denies shortness of breath or dyspnea on exertion. FAMILY HISTORY: Noncontributory. SOCIAL HISTORY: Patient smokes approximately a pack a day. Denies alcohol or substance abuse. PHYSICAL EXAMINATION: VITAL SIGNS: Reviewed. Temperature 98 degrees, pulse 90, respiratory 18, BP 127/80, and sat 100% on room air. GENERAL: Patient is very pleasant. She is in no current respiratory distress. HEENT: Normocephalic. NECK: Supple. CARDIOVASCULAR: Regular rate. No murmurs. CHEST: Clear. Nonlabored. Soft and nondistended. EXTREMITIES: Moves all extremities. No edema. NEUROLOGIC: No focal changes. She is awake, alert, and oriented x3. SKIN: Warm and dry. No rashes. ASSESSMENT: 1. Leukopenia of undetermined origin. White count is 1.1. 2. Anemia with a hemoglobin and hematocrit 10 and 32 with a low MCV, MCH, likely iron deficient. 3. Neutropenia. 4. Diabetes with hyperglycemia. 5. Known coronary artery disease. 6. Hypertension. 7. Hyperlipidemia. 8. Chronic pain. 9. Abdominal pain of undetermined origin. PLAN: The patient has had a CT which demonstrates nonobstructive stones and splenomegaly. Given her splenomegaly and her neutropenia, we will transfer her to [facility] and ask Hematology for evaluation and treatment. We will treat symptomatically and will follow. cc: Simon Lindo MD
[2018-09-01 07:47] LABS: HEMATOCRIT 32.1 % (37.0-47.0); HEMOGLOBIN 10.3 g/dL (12.0-16.0); MCH 26.3 PG (27-31); MCHC 32.1 g/dL (33-37); MCV 82.1 FL (81-99); MPV 9.3 FL (7.4-10.4); RBC 3.91 XMIL (4.2-5.4); RDW 16.5 % (11.5-14.5); WBC 1.55 X1000 (4.8-10.8)
[2018-09-01 08:00] LABS: ALB/GLOB RATIO 1.1; ALBUMIN 3.6 g/dL (3.5-5.0); CALCIUM 8.9 mg/dL (8.8-10.2); MAGNESIUM 1.9 mg/dL (1.5-2.7); POTASSIUM 4.3 mmol/L (3.5-5.1); TOTAL BILIRUBIN 0.58 mg/dL (0.20-1.00); TOTAL PROTEIN 6.9 g/dL (6.3-8.3)
[2018-09-01] MEDS: NS 1,000 ML IV SCH ×2 (08:42→16:38)
[2018-09-01] MEDS: LEVAQUIN 750 MG/D5W 750 MG/150 ML IVPB IV SCH (16:38)
[2018-09-01] MEDS: VENOFER 200 MG in NS 150 ML IV SCH (17:51)
[2018-09-01] MEDS: VANCOMYCIN 1.3 GM in NS 250 ML IV SCH (20:54)
--- NOTE | 2018-09-01 21:12 | PROGRESS NOTE ---
DATE: 09/01/2018 SUBJECTIVE: The patient is sitting up in bed. She denies having any complaints at this time. OBJECTIVE: Vital Signs: Temperature 98.6 degrees, blood pressure 132/77, heart rate 76, respirations 20, O2 saturation is 100% on room air. General: This is an elderly female sitting at the edge of the bed in no acute distress. Heart: S1, S2 normal. Regular rate and rhythm. Lungs: Equal air entry bilaterally. No crackles. No rales. Abdomen: Positive bowel sounds. Soft, nontender, nondistended. Extremities: No edema, no cyanosis. Neurologic: The patient is alert and oriented x3. LABS: White blood cell count 1.5, hemoglobin 10, hematocrit 32, platelets 151,000, sodium 138, potassium 4.3, BUN 11, creatinine 1, glucose 129. ASSESSMENT AND PLAN: 1. Leukopenia. The etiology is unknown. Will await recommendations from the superintendent board mill. 2. Iron deficiency anemia. We will give the patient iron infusions. 3. Suspected rheumatoid arthritis. The patient will likely need to follow up with the anesthesiologist and critical care as outpatient. cc: Pinky Mi MD MTDD
[2018-09-01] MEDS ORDERED: MELATONIN PO ONE (21:15)
[2018-09-02 08:00] LABS: BASO# 0.01 X1000 (0.0-0.2); BASO% 0.7 % (0.0-0.8); EOS# 0.03 X1000 (0.0-0.7); EOS% 2.2 % (0.0-10.0); HEMATOCRIT 32.9 % (37.0-47.0); HEMOGLOBIN 10.6 g/dL (12.0-16.0); LYMPH# 0.96 X1000 (1.2-3.4); LYMPH% 70.6 % (20.5-51.1); MCH 25.8 PG (27-31); MCHC 32.2 g/dL (33-37); MONO# 0.25 X1000 (0.11-0.59); MONO% 18.4 % (1.7-9.3); MPV 9.5 FL (7.4-10.4); NEUT# 0.11 X1000 (1.4-6.5); NEUT% 8.1 % (42.2-75.2); PLT 167 X1000 (130-400); RBC 4.11 XMIL (4.2-5.4); RDW 16.4 % (11.5-14.5); WBC 1.36 X1000 (4.8-10.8)
[2018-09-02 08:05] LABS: AGAP 12; BUN 9 mg/dL (8-22); CHLORIDE 106 mmol/L (98-107); COSMO 279; CREATININE 0.9 mg/dL (0.5-0.9); ESTIMATED GFR > 60; GLUCOSE 82 mg/dL (70-104); POTASSIUM 4.5 mmol/L (3.5-5.1); SODIUM 141 mmol/L (136-145); TCO2 23 mmol/L (25-35)
[2018-09-02] MEDS: NORCO-5 PO PRN ×3 (08:45→21:19)
[2018-09-02] MEDS: VENOFER 200 MG in NS 150 ML IV SCH (08:45)
[2018-09-02] MEDS ORDERED: NICODERM PATCH TD PRN (09:47)
[2018-09-02 10:23] LABS: ANISOCYTOSIS 3+; LARGE PLATELETS OCCASIONAL; LYMPHS 69 % (21-51); MICROCYTOSIS 3+; MONO 18 % (1-9); POIKILOCYTOSIS 1+; SEGS 11 % (42-75); TARGET CELLS 1+
--- NOTE | 2018-09-02 14:14 | PROGRESS NOTE ---
DATE: 09/02/2018 SUBJECTIVE: The patient is resting in bed. She complains of right-sided abdominal pain. OBJECTIVE: Vital Signs: Temperature 97.6 degrees, blood pressure 158/68, heart rate 65, respirations 18, O2 saturation is 100% on room air. General: This is a chronically ill-appearing elderly female lying in bed in no acute distress. Heart: S1, S2. Normal. Lungs: Clear to auscultation bilaterally. Abdomen: Positive bowel sounds. Soft, nontender, nondistended. Extremities: No edema, no cyanosis. Neurologic: The patient is alert and oriented x4. LABS: White blood cell count 1.3, hemoglobin 10, hematocrit 32, platelets 167,000, ANC 0.11. Sodium 141, potassium 4.5, chloride 106, CO2 23. ASSESSMENT AND PLAN: 1. Leukopenia. Unchanged. We will await recommendations from the steam service inspector. 2. Iron deficiency anemia. Continue on iron infusions. 3. Suspected rheumatoid arthritis. Aware. 4. Disposition. Will consult with City Detective for assistance with discharge planning. The patient is homeless. cc: Pinky Mi MD
[2018-09-02] MEDS: LEVAQUIN 750 MG/D5W 750 MG/150 ML IVPB IV SCH (15:19)
[2018-09-02] MEDS: VANCOMYCIN 1.3 GM in NS 250 ML IV SCH (21:19)
[2018-09-02 23:23] LABS: URINE SOURCE CLEAN CATCH
[2018-09-02 23:26] LABS: BILIRUBIN URINE NEGATIVE (NEGATIVE); BLOOD URINE SMALL (NEGATIVE); COLOR STRAW; GLUCOSE URINE NEGATIVE (NEGATIVE); KETONE URINE NEGATIVE (NEGATIVE); LEUKOCYTES URINE NEGATIVE (NEGATIVE); NITRITE URINE NEGATIVE (NEGATIVE); PROTEIN URINE NEGATIVE (NEGATIVE); SP GRAVITY URINE 1.007; TURBIDITY URINE CLEAR (CLEAR); UR EPITHELIAL CELLS <10 /HPF (<10); URINE BACTERIA NEGATIVE /HPF; URINE RBC <10 /HPF (<10); URINE WBC <10 /HPF (<10); UROBILINOGEN URINE NORMAL (NORMAL)
[2018-09-03] MEDS: NORCO-5 PO PRN ×3 (04:41→16:46)
[2018-09-03 07:20] LABS: HEMOGLOBIN 10.7 g/dL (12.0-16.0); RBC 4.13 XMIL (4.2-5.4); WBC 1.32 X1000 (4.8-10.8)
[2018-09-03 07:21] LABS: BASO# 0.02 X1000 (0.0-0.2); BASO% 1.5 % (0.0-0.8); EOS# 0.04 X1000 (0.0-0.7); LYMPH% 68.2 % (20.5-51.1); MCH 25.9 PG (27-31); MCHC 32.4 g/dL (33-37); MCV 79.9 FL (81-99); MONO# 0.28 X1000 (0.11-0.59); MONO% 21.2 % (1.7-9.3); MPV 9.1 FL (7.4-10.4); NEUT% 6.1 % (42.2-75.2); PLT 160 X1000 (130-400); RDW 16.3 % (11.5-14.5)
[2018-09-03 07:25] LABS: NEUT# 0.08 X1000 (1.4-6.5)
[2018-09-03 07:32] LABS: CALCIUM 8.6 mg/dL (8.8-10.2); POTASSIUM 4.7 mmol/L (3.5-5.1)
[2018-09-03 07:39] LABS: HEMOGLOBIN A1C 4.6 % (4.8-6.0)
[2018-09-03 07:57] LABS: EOS 2 % (1-10); LYMPHS 68 % (21-51); MONO 12 % (1-9); SEGS 10 % (42-75)
[2018-09-03 07:58] LABS: ANISOCYTOSIS 1+; HYPOCHROM 1+
[2018-09-03] MEDS: VENOFER 200 MG in NS 150 ML IV SCH (10:18)
[2018-09-03] MEDS: ATIVAN IV PRN ×2 (15:09→20:58)
--- NOTE | 2018-09-03 16:00 | PROGRESS NOTE ---
DATE: 09/03/2018 SUBJECTIVE: The patient is resting comfortably. No acute events noted overnight. OBJECTIVE: Vital Signs: Temperature 98.2 degrees, blood pressure 147/62, heart rate 67, respirations 18, O2 saturation is 100% on room air. General: This is an elderly female lying in bed in no acute distress. Heart: S1, S2 normal. Regular rate and rhythm. Lungs: Equal air entry bilaterally. No wheezing. No rales. No rhonchi. Abdomen: Positive bowel sounds. Soft, nontender, nondistended. Extremities: No edema, no cyanosis. Neurological: The patient is alert and oriented x3. LABORATORY DATA: White blood cell count 1.3, hemoglobin 10, hematocrit 33 platelets 160,000. ANC 0.08. Sodium 138, potassium 4.7, chloride 104, CO2 of 23, BUN 11, creatinine 1, glucose 91. ASSESSMENT AND PLAN: 1. Neutropenia. Unchanged. We will await recommendations from the electrical maintenance man. 2. Iron deficiency anemia. Stable. The patient has been receiving iron infusions. 3. Suspected rheumatoid arthritis. Aware. 4. Splenomegaly. Aware. DISPOSITION: The patient is homeless. Entry Level Financial Analyst has been consulted for assistance with discharge planning. cc: Pinky Mi MD
[2018-09-03 16:39] LABS: LEUKEMIA LYMPHOMA BY FLOW REFERRED FOR TESTING
[2018-09-03 16:40] LABS: FLOW CYTOMETERY SOURCE WHOLE BLOOD
--- NOTE | 2018-09-04 07:35 | Diag Imaging Result Doc PS360 ---
EXAM: CT ABDOMEN/PELVIS W/WO RICHAS 09/03/2018 HISTORY: r/o mets TECHNIQUE: This exam was performed using automated exposure control, adjustment of mA or kV according to patient size, and/or use of iterative reconstruction technique. COMMENT: There is no evidence of acute disease in the visualized portion of the chest. There is a large amount of retained gastric contents. There are multiple calyceal stones bilaterally. The largest stone is in the lower pole of the right collecting system measuring over 12 mm in diameter. This was also present on the previous study of 08/31/2018. There is splenomegaly, the spleen measuring over 15.7 cm in AP dimension. This was also the case on 08/31/2018. It is increased from 15 cm on 06/05/2015. There has been cholecystectomy. There are arterial calcifications in the splenic artery the aorta and the proximal renal arteries bilaterally. The mesenteric and renal arteries appear to be patent although arterial opacification is somewhat suboptimal. There is considerable beam hardening artifact. The adrenal glands are not enlarged. The pancreas is grossly normal in appearance. There is no evidence of bowel obstruction. There is no evidence of significant adenopathy. The intra and extrahepatic biliary ducts are somewhat distended. The common bile duct measures in excess of 12 mm. This was also the case on the previous study but has increased since 06/05/2015 at which time it was slightly over 9 mm. There are no apparent stones or masses to account for the dilatation of the common bile duct. Otherwise the liver is unremarkable. There is no evidence of hydronephrosis although on the portal venous phase there is no urographic excretion of contrast. There is a small fat-containing umbilical hernia. Pelvis: There is a moderate amount of stool within the distal colon. There has been previous appendectomy and hysterectomy. The urinary bladder is not distended. There is some adenopathy in the external iliac chain bilaterally with one node on the left measuring over 13 mm in long axis and one adjacent to the obturator internus muscle on the right measuring 2.2 x 0.7 cm. This particular node has diminished considerably in size since the previous examination of 06/05/2015. There is an external iliac node distally on the left side just above the inguinal ligament measuring 2.5 cm in long axis. This has not changed significantly since 06/05/2015. There is no evidence of free fluid. There is some sclerosis of the endplates on the right side at the L5-S1 level and on the left at L4-5. There is also disc bulge at L4-5 and L3-4. No evidence of acute bony disease is present. IMPRESSION: 1. Splenomegaly, stable since 08/31/2018 but slightly worse than on 06/05/2015. 2. Pelvic adenopathy which is stable or improved since 06/05/2015. 3. Bilateral nephrolithiasis without evidence of obstructive uropathy. 4. Constipation. 5. Retained gastric contents. The possibility of gastroparesis cannot be excluded. Electronically signed by Jose Lacy 09/04/2018 7:33 AM
[2018-09-04 07:55] VITALS: BP 155/74
[2018-09-04] MEDS: NORCO-5 PO PRN (08:03)
--- NOTE | 2018-09-04 14:49 | HEMO/ONC CONSULTATION ---
DATE: 09/04/2018 ADMITTING PHYSICIAN: Dr. Lindo. REQUESTING PHYSICIAN: Dr. Lindo. We appreciate this consult. CHIEF COMPLAINT: Leukopenia. HISTORY OF PRESENT ILLNESS: Ms. Yas Reynaga is a pleasant, 58-year-old, female, who presented to [facility] secondary to abdominal pain that she reports was persistent for 4 to 5 days. The patient reports that the pain was in her right lower quadrant and suprapubic area. The patient has a history of coronary artery disease, hypertension, hyperlipidemia, and history of myocardial infarction. Additionally, she has chronic osteoarthritis, diabetes mellitus type 2, and chronic neck and back pain. The patient is currently homeless, and is not followed by a primary care provider. Upon presentation to [facility], white blood cell count was found to be decreased to 1100. Additionally, she was found to be anemic with a hemoglobin of 10.00. The patient reports that she knows of no history of low white blood cell count or hemoglobin. We are consulted secondary to leukopenia and neutropenia. PAST MEDICAL HISTORY: As in HPI. PAST SURGICAL HISTORY: None. SOCIAL HISTORY: The patient is currently homeless. She smokes 1 pack of cigarettes daily. She denies alcohol or illicit drugs. FAMILY HISTORY: Negative for any hematologic or oncologic disease. MEDICATIONS ON ADMISSION: None. ALLERGIES: Penicillin and latex. REVIEW OF SYSTEMS: A 14-point review of systems was obtained and is negative, except for as mentioned in the HPI. PHYSICAL EXAMINATION: General: Ms. Reynaga is a 58-year-old female, lying supine in bed in no immediate distress. Vital Signs: Temperature 98.4 degrees, blood pressure 119/67, heart rate 65, respirations 18, O2 saturation is 100% on room air. HEENT: Normocephalic, atraumatic. Mucous membranes are slightly pale and moist. Sclerae anicteric. Extraocular movements intact. Neck: Supple. Lungs: Clear to auscultation bilaterally. Chest expansion is equal bilaterally. CV: S1, S2 is heard. No murmurs, rubs or gallops. Abdomen: Nondistended. Extremities: No clubbing, cyanosis, or edema. Dermatologic: No rashes, bruises, or lesions. Neurologic: The patient is awake, alert, and oriented x3. She has no focal deficit. LABORATORY DATA: Hemoglobin 10.7, hematocrit 33.0, white blood cell count 1.32, platelets 160,000. Sodium 138, potassium 4.7, chloride 104, CO2 is 23, BUN 11, creatinine 1.0, glucose 91. Iron saturation is 15%. ANC is 0.08. Urinalysis is negative for UTI. Blood cultures are currently pending. IMAGING STUDIES: Renal CT reveals bilateral kidney nonobstructing stones, as well as splenomegaly with the spleen 13.4 x 5.1 x 16.3 cm. ASSESSMENT AND PLAN: 1. Leukopenia and neutropenia with splenomegaly of questionable etiology. We will initiate a workup at this time to include flow cytometry, SPEP, LDH, beta 2 microglobulin, and folic acid. Additionally, we will obtain CT of the abdomen and pelvis and bone marrow biopsy. Treatment pending results. 2. Anemia of iron deficiency, status post intravenous iron replacement. Will continue to follow CBC. 3. Abdominal pain of unknown etiology. Workup is currently in progress. 4. Uncontrolled diabetes mellitus type 2. Glucose is stable at 91. 5. Coronary artery disease, known. 6. Hypertension and hyperlipidemia, stable at this time. 7. Chronic pain, known. We will follow along with you and make further recommendations pending outcomes. The above reflects the history, exam, assessment, and plan of Dr. Young. Dictated by NABOR Camacho for Edgardo Young MD cc: NABOR Camacho MD
--- NOTE | 2018-09-04 17:13 | DISCHARGE SUMMARY ---
ADMISSION DATE: 08/31/2018 DISCHARGE DATE: 09/04/2018 She actually left AMA. PROGRESS NOTE/DISCHARGE EXPLANATION: Patient admitted on 08/31/2018 and decided to leave 09/04/2018 in the afternoon. She has no primary care physician. She has had abdominal pain for 4 days. This is a 58-year-old who presented to the hospital with abdominal pain for 4 or 5 days. Recently has become homeless. She was having pain in the right upper quadrant, suprapubic area. Denies any previous medical history. ALLERGIES: She has allergy to penicillin causes swelling and latex causes a rash. MEDICATION: No current medication. PAST MEDICAL HISTORY: Significant for: 1. History of coronary artery disease. 2. Hypertension. 3. Hyperlipidemia. 4. History of myocardial infarction. 5. She has chronic osteoarthritis. 6. History of diabetes. 7. She has neck and back pain but not on any current medications. REVIEW OF SYSTEMS: She denied fevers, chills, cough, congestion. Stated she had abdominal pain in the right lower quadrant, suprapubic area, decreased appetite. Denied any fevers, chills, diarrhea, urinary frequency. Denies night sweats. Denies weight loss or weight gain. Denied skin rashes. No headache, blurred vision. Denied chest pain or palpitation. Denies shortness of breath or dyspnea on exertion. So, admitted with leukopenia, white count was 1100. She had anemia, hemoglobin 10, hematocrit 32, MCV was low, and likely she had iron deficiency anemia, neutropenia, diabetes, hyperglycemia, known history of coronary artery disease, hypertension, hyperlipidemia, chronic pain, and abdominal pain of undetermined origin. She was recommend that we get a bone marrow biopsy, but she refused. She had an abdominal and pelvic CT on 09/03/2018, which showed splenomegaly which is stable since 08/31/2018, but slightly worse than 06/05/2015. Pelvic adenopathy stable to slightly improved since 06/05/2015, bilateral nephrolithiasis without any evidence of obstructive uropathy, and constipation. Retained gastric contents consistent with gastroparesis. Hematology/Oncology was asked to see, Dr. Young. Because of leukopenia, neutropenia, and splenomegaly of questionable etiology, we wanted to initiate workup, including cytometry, SPEP, LDH, beta-2 microglobulin, and folic acid. We wanted to pursue bone marrow biopsy, but she refused. Chemistries: Her folate was low at 7.1. Beta-2 microglobulin slightly high at 5.1, and there were recommendations get a bone marrow biopsy, she did not want to, and she wanted to leave the hospital. She did not pursue any further care, and she has no place to go. I tried to estate planning counselor her to stay and pursue treatment, but she refused. cc: Alex Villa MD
== END 2018-09-04 14:54 | disposition left against medical advice (07) | DRG 810 ==
LOC: P.ED 10:51 → 3N 15:18 → SUATTDRO 15:18 → 3N 17:30
PROVIDERS: ATTEND Emergency Medicine
CPT/HCPCS: 74176; 74178; 80048; 80053; 80202; 81001; 82232; 82607; 82728; 82746; 82784; 83036; 83540; 83550; 83615; 83735; 84155; 84165; 84443; 85025; 85027; 85045; 86334; 87040; 87088; 88184; 88185; 96365; 99285; A9270; J1756; J1956; J2060; J2405; J3370; J7030; J7050; Q9967

== ENCOUNTER 2018-09-05 01:11 | Inpatient (IN) ==
[2018-09-05] MEDS ORDERED: ZOFRAN IV ONE (01:28)
[2018-09-05] MEDS ORDERED: NS 1,000 ML IV ONE (01:28)
[2018-09-05 02:05] LABS: URINE SOURCE CLEAN CATCH
[2018-09-05 02:17] LABS: BILIRUBIN URINE NEGATIVE (NEGATIVE); BLOOD URINE MODERATE (NEGATIVE); COLOR YELLOW; GLUCOSE URINE NEGATIVE (NEGATIVE); KETONE URINE NEGATIVE (NEGATIVE); LEUKOCYTES URINE NEGATIVE (NEGATIVE); NITRITE URINE NEGATIVE (NEGATIVE); PH URINE 5.5; PROTEIN URINE NEGATIVE (NEGATIVE); SP GRAVITY URINE 1.007; TURBIDITY URINE CLEAR (CLEAR); UR EPITHELIAL CELLS <10 /HPF (<10); URINE BACTERIA NEGATIVE /HPF; URINE RBC <10 /HPF (<10); URINE WBC <10 /HPF (<10); UROBILINOGEN URINE NORMAL (NORMAL)
[2018-09-05 02:23] LABS: BASO# 0.01 X1000 (0.0-0.2); BASO% 0.6 % (0.0-0.8); EOS# 0.04 X1000 (0.0-0.7); EOS% 2.4 % (0.0-10.0); HEMOGLOBIN 10.4 g/dL (12.0-16.0); LYMPH# 0.97 X1000 (1.2-3.4); LYMPH% 58.8 % (20.5-51.1); MCH 25.7 PG (27-31); MCHC 32.5 g/dL (33-37); MONO# 0.47 X1000 (0.11-0.59); MONO% 28.5 % (1.7-9.3); MPV 9.2 FL (7.4-10.4); NEUT% 9.7 % (42.2-75.2); PLT 190 X1000 (130-400); RBC 4.05 XMIL (4.2-5.4); RDW 16.4 % (11.5-14.5); WBC 1.65 X1000 (4.8-10.8)
[2018-09-05 02:25] LABS: NEUT# 0.16 X1000 (1.4-6.5)
[2018-09-05 02:27] LABS: ALB/GLOB RATIO 1.4; CALCIUM 9.5 mg/dL (8.8-10.2); POTASSIUM 4.7 mmol/L (3.5-5.1); TOTAL BILIRUBIN 0.64 mg/dL (0.20-1.00); TOTAL PROTEIN 6.9 g/dL (6.3-8.3)
[2018-09-05 02:54] LABS: EOS 3 % (1-10); LYMPHS 60 % (21-51); MONO 27 % (1-9); SEGS 10 % (42-75)
--- NOTE | 2018-09-05 04:39 | PROVIDER DOCUMENTATION ---
This chart was entered by Natalie Wooten Scribe, acting as scribe for Karl Tanner MD. HPI-Abdominal Pain/GI Problem - General Stated Complaint: abd pain Time Seen by Provider: 09/05/18 01:22 Source: patient Allergies/Adverse Reactions: Patient Allergies Allergy/AdvReac Type Severity Reaction Status Date / Time Penicillins Allergy Intermediate swelling, Verified 06/13/18 09:04 rash latex Allergy RASH Verified 06/13/18 09:04 Home Medications: Home Medication List Medication Instructions Recorded Confirmed Last Taken Type NK [No Home Medications] 06/13/18 09/05/18 Unknown History - History of Present Illness-ABD Nature of Presenting Problems: pt is 58/F presenting to ED w/ r sided ABD pain. Pt left [facility] yesterday, AMA. She was admitted for leukopenia. Pt sts that she left because she thought she was getting better, but has found that she was not. Pt sts thta she has nausea now as well as the R sided ABD pain. Pt arrived EMS. Abdominal Pain Onset Location: reports: RLQ Pain Radiation: reports: no radiation Quality of Pain: reports: aching Severity in ED: reports: moderate Onset/Duration: reports: gradual Timing: reports: still present Activities at Onset: reports: none Exposure to sick contacts?: No Modifying Factors: improves with: nothing Associated Symptoms: reports: nausea. denies: shortness of breath, vomiting, weakness Last BM: unsure Bruising or Bleeding Gums?: No Similar Symptoms Previously?: No Recently seen or treated by another doctor?: No Review of Systems - Adult - REVIEW OF SYSTEMS - ADULT Constitutional: reports: no symptoms reported Eyes: reports: no symptoms reported Ears, Nose, Mouth & Throat: reports: no symptoms reported Cardiovascular: reports: no symptoms reported Respiratory: reports: no symptoms reported Gastrointestinal: reports: abdominal pain. denies: nausea, vomiting Genitourinary: reports: no symptoms reported Musculoskeletal: reports: no symptoms reported Integumentary: reports: no symptoms reported Neurological: reports: no symptoms reported. denies: dizziness/vertigo, headache/migraines Psychiatric: reports: no symptoms reported Endocrine: reports: no symptoms reported Hematologic/Lymphatic: reports: no symptoms reported Allergic/Immunologic: reports: no symptoms reported All Other Systems: Reviewed and Negative Past History - Adult - PAST MEDICAL HISTORY-ADULT Review of Records: reports: Old Records Reviewed, Nursing Assessment Review, Medications Reviewed, Social history reviewed & non-contributory. Major Childhood Illnesses: reports: denies history Cardiovascular: reports: CAD, HTN, hyperlipidemia, GA Respiratory: reports: asthma Gastrointestinal: reports: denies history Obstetrical/Gynecological: reports: denies history Genitourinary: reports: denies history Musculoskeletal: reports: chronic pain, intervertebral disc disease, neck/back injury Neurological: Psychiatric: reports: anxiety, psychiatric problems (panic attacks) Endocrine/Immune: reports: Diabetes Other Conditions: reports: denies history - PRIOR SURGERIES/PROCEDURES Surgical/Procedure History: reports: cholecystectomy, cardiac stent, hysterectomy, other (tubal ligation) - PRIOR HOSPITALIZATIONS Prior Hospitalizations: reports: none - IMMUNIZATION STATUS Childhood Immunizations: See Nurse Assessment Flu Vaccine: See Nurse Assessment - FAMILY HISTORY Family History: reviewed, not pertinent - SOCIAL HISTORY Smoking: cigarettes, less than 1 pack/day Substance Use: none/never Alcohol Use Frequency: never Living Situation: homeless Physical Exam-General - PHYSICAL EXAM-ADULT Initial Vital Signs Reviewed: Yes - CONSTITUTIONAL General Appearance: appears well, alert, moderate distress - EYES Eyes: PERRL/EOMI, pink conjunctivae - HEAD, EARS, NOSE, MOUTH & THROAT HENMT: normocephalic/atraumatic, moist mucous membranes, normal ENT inspection, TMs normal, pharynx normal - NECK Neck: non-tender, full range of motion, supple, normal inspection - RESPIRATORY Respiratory: lungs clear - CARDIOVASCULAR Cardiovascular: regular rate, rhythm - GASTROINTESTINAL (ABDOMEN) Abdominal Exam: normal bowel sounds, soft - LYMPHATIC Lymphatic: no adenopathy - MUSCULOSKELETAL Back Exam: normal inspection, no CVA tenderness, no vertebral tenderness Extremity: normal range of motion, non-tender, normal gait, normal inspection - SKIN Integumentary: normal color, warm/dry - NEUROLOGIC Neurologic: grossly normal - PSYCHIATRIC Psych/Mental Status: normal mood/affect, normal thought content, normal thought process, oriented x 3 Progress - PLAN OF CARE/RESULTS Progress/Plan/Lab Results: Orders Category Date Time Status cxr [CHEST-1 VIEW] [RAD] Stat Exams 09/05/18 01:28 Ordered BNP [PRO B-NATRIURETIC PEPTIDE] Stat Lab 09/05/18 01:27 Uncollected CBC WITH ELECTRONIC DIFF [HEME] Stat Lab 09/05/18 01:27 Uncollected COMPREHENSIVE METABOLIC PANEL [CHEM] Stat Lab 09/05/18 01:27 Uncollected LACTATE, PLASMA [CHEM] Stat Lab 09/05/18 01:27 Uncollected TROPONIN T Stat Lab 09/05/18 01:27 Uncollected UA [URINALYSIS W/POSS RFLX CULT] [URINALYSIS] Stat Lab 09/05/18 01:27 Uncollected 0.9% Sodium Chloride Inj [Ns] 1,000 ml Med 09/05/18 01:28 Active IV 999 mls/hr Ondansetron [Zofran] Med 09/05/18 01:28 Discontinued 4 mg IV NOW ONE Result Diagrams: 09/05/18 01:30 09/05/18 01:30 Departure - Departure Date of Disposition Decision: 09/05/18 Time of Disposition Decision: 04:39 DIAGNOSIS: Pancytopenia Disposition: ADMITTED INPATIENT 09 Certified Medical Emergency: Emergent Condition: Stable - Critical Care Note This patient required my direct & personal management of CC.: No Attestation - Physician/ GRAHAM Attestation Patient care was provided by Advanced Practice Provider:: No The physician spent face to face time with patient:: Yes Advanced Practice Provider documentation review:: Supervising physician onsite and consulted in the evaluation and care of this patient. The physician did have a face to face encounter with the patient. This chart was documented by the indicated scribe, (Natalie Wooten, Juliusibwero) and accurately reflects the services I performed and decisions made by me, Karl Tanner MD, as attested by the provider's signature.
--- NOTE | 2018-09-05 05:21 | HISTORY AND PHYSICAL ---
ADDENDUM: To the History and Physical. Ms. Reynaga recently signed out against medical advice yesterday despite pleas from medical team. Comes back in again with the same complaint of right lower quadrant abdominal pain which is nonradiating, describes it as a dull achy pain with no specific aggravating or relieving factors. Admits to having constipation but no nausea or vomiting, night sweats. Not sure if she has lost any weight. Her workup was suggestive of a lymphoproliferative disorder. She has undergone flow cytometry, anemia workup, beta microglobulin test have been done. She was supposed to be scheduled for bone marrow biopsy. Currently, she has no other complaints. She will undergo an SPEP, a UPEP, HIV, hepatitis panel, and a CT thorax to ensure that patient does not have any extensive hilar adenopathy. Her exam was grossly unremarkable, mild right lower quadrant tenderness with no peritoneal signs. No masses or megaly appreciated. Bowel sounds were hypoactive. No cervical, axillary, supraclavicular lymphadenopathy palpated. Dr. Young will need to be reconsulted for further input. cc: Balbir Bearden MD
--- NOTE | 2018-09-05 07:21 | Diag Imaging Result Doc PS360 ---
EXAM: CHEST-1 VIEW 09/05/2018 HISTORY: sob TECHNIQUE: AP portable at 1340 COMMENT: The heart size is slightly enlarged. The lungs appear to be clear. There are some calcified nodes in the right hilum. The appearance the chest has not changed appreciably since 06/13/2018 considering differences in projection, inspiration and technique. There is degenerative change in the left acromioclavicular joint and subchondral cysts in both humeral heads. IMPRESSION: Borderline cardiomegaly. Electronically signed by Jose Lacy 09/05/2018 7:19 AM
[2018-09-05] MEDS ORDERED: ZOFRAN IV PRN (08:02)
[2018-09-05] MEDS ORDERED: TYLENOL PO PRN (08:02)
[2018-09-05] MEDS ORDERED: NORCO-5 PO PRN (08:02)
[2018-09-05] MEDS ORDERED: NS 1,000 ML IV SCH (08:02)
[2018-09-05] MEDS: LACTULOSE PO SCH ×2 (08:25→23:00)
[2018-09-05] MEDS: PERICOLACE PO SCH ×2 (08:25→23:00)
[2018-09-05] MEDS: MIRALAX PO SCH ×2 (08:25→22:59)
[2018-09-05] MEDS: NICODERM PATCH TD PRN (08:26)
--- NOTE | 2018-09-05 08:30 | HISTORY AND PHYSICAL ---
PRIMARY CARE PHYSICIAN: The patient does not have a primary care provider. CHIEF COMPLAINT: Abdominal pain. HISTORY OF PRESENT ILLNESS: Ms. Reynaga was just recently admitted to our facility though unfortunately, did leave against medical advice. During her most recent admission, she was admitted with leukopenia and neutropenia, and anemia as well. She did have a CT of the abdomen that showed splenomegaly and some pelvic adenopathy that appeared to be stable bilateral nephrolithiasis without any evidence of obstructive uropathy and constipation. She also had retained gastric contents consistent with gastroparesis. Dr. Young with Hematology did see the patient. They did want to initiate a workup which included a cytometry, SPEH, LDH and beta 2 microglobulin and folic acid. They did also want to pursue a bone marrow biopsy. Though unfortunately after time speaking with the patient and trying to get her to stay, the patient did leave against medical advice. The patient returned back to the ER today complaining of continued right lower quadrant pain and some nausea. She is reporting a headache as well as some dizziness. She denies any chest pain or shortness of breath though. She denies any vomiting, and she is reporting some nausea. She is still complaining of right lower quadrant pain for which she describes as a dull achy type pain that did become a sharp stabbing knife-like pain at times. She is reporting some dysuria. She states her last bowel movement was yesterday though prior to this, her last good bowel movement was 1 week ago. She is reporting some melena as well. She does report being achy all over, though denies any fever or chills. Other than the achy pain, she denies any other pain, numbness, tingling, or swelling in extremities. The patient does have an area of erythema noted to her right antecubital fossa where it looks like she had just had an IV that was placed. We will need to keep an eye on this, and monitor this. It does appear that the IV is possibly just mildly infiltrated though if this does not improve or the swelling or erythema worsens may require further evaluation and/or treatment. In the ER today, she continues to be neutropenic and leukopenic as well as anemic. Though her numbers actually have improved very slightly since her labs which were most recently performed on 09/03 just 2 days ago. Her chemistry appears to be stable. Urinalysis showed no signs of infection though it was positive for some blood that was negative for nitrites, leukocytes, white blood cells, or bacteria. A chest x-ray performed in the ER, showed borderline cardiomegaly, though no other acute abnormalities. The patient was placed inpatient for admission. REVIEW OF SYSTEMS: A 14 point review of systems was conducted with the patient. All were negative except for pertinent positives and mentioned above in HPI. PAST MEDICAL HISTORY: 1. Coronary artery disease. 2. Hypertension. 3. Hyperlipidemia. 4. History of myocardial infarction. 5. Chronic osteoarthritis. 6. History of diabetes mellitus. 7. History of chronic neck and back pain. PAST SURGICAL HISTORY: Hysterectomy. SOCIAL HISTORY: The patient is a current smoker. She did smoke up to 1 pack of cigarettes per day though she states she is not smoking as much at this time due to she is not able to afford cigarettes. She denies any alcohol or illicit drug use. The patient is currently homeless. She does have a daughter that lives close by who she does speak with fairly often though she states that her daughter at this time is not willing to help her out as far as having a place to stay. FAMILY HISTORY: The patient states she does not know any of her biological family history though she is adopted. ALLERGIES: Patient reports allergies to penicillin and latex. HOME MEDICATIONS: The patient denies any prescription medications at this time. She states that she previously did see Dr. Obrien in [facility] though is not leaving [facility] anymore, and has no way to get to the doctor there. At this time, she does not have a primary care physician. DIAGNOSTIC DATA/LABORATORY RESULTS: White blood cell count is 1650. Hemoglobin 10.4, hematocrit 32, and platelet count of 190,000. Sodium 136, potassium 4.7, chloride 97, serum bicarb 28, BUN 21, creatinine 1, with a GFR 57. Glucose 113. Calcium 9.5. Liver function tests within normal limits. Troponin less than 0.01. ProBNP is 1214. Urinalysis obtained via clean catch, was positive for blood, and was negative for protein, glucose, ketones, nitrites, leukocytes, white blood cells, or bacteria. Chest x-ray showed borderline cardiomegaly. There are no other acute findings noted. Pending diagnostic studies at this time are hepatitis profile, HIV screen, LDH, and a CT thorax with contrast. PHYSICAL EXAMINATION: VITAL SIGNS: Temperature 97.8 degrees, heart rate 910, respirations 18, blood pressure is 100/81 with a MAP of 89, and oxygen saturation is 95% on room air. GENERAL: Ms. Reynaga is a pleasant 58-year-old female. She was resting on the ER stretcher. She was in no acute distress. She was awake, alert, and able to answer questions appropriately. HEENT: Head is atraumatic, normocephalic. Pupils are equal, round, and reactive to light, and were 3 mm bilaterally and brisk. Sub-conjunctivae were pale. Oral mucosa was moist. Oropharynx is clear. NECK: Supple. Trachea midline. LYMPHATICS: There was no cervical, axillary or supraclavicular lymphadenopathy noted upon palpation. CARDIOVASCULAR: Patient has S1-S2 present. No murmurs, gallops, or rubs appreciated. Regular rate and rhythm. PULMONARY: The patient has symmetrical chest expansion bilaterally. LUNGS: Clear to auscultation in bilateral full cl[place]. ABDOMEN: Soft. It does not appear to be distended. The patient does have a slightly protuberant abdomen noted. She is reporting some tenderness in the right lower quadrant area. Bowel sounds are present in all 4 quadrants and were normoactive. EXTREMITIES: No cyanosis or edema noted. Pulse, motor, and sensory are intact in all extremities. Radial pulses and pedal pulses were 3+ bilaterally. INTEGUMENTARY: The patient's skin is pink, warm, and dry. The patient does have a small area of erythema noted to her right antecubital fossa. This is where she had a previous IV that was just removed. This does appear to possibly have some signs of infiltration noted. We will continue to monitor this closely. If this does worsen, this may require further evaluation and/or intervention. NEUROLOGICAL: Patient is alert and oriented to person, place, time, and situation. She is able to move all extremities. There are no focal neurological deficits noted. ASSESSMENT AND PLAN: 1. Leukopenia. 2. Neutropenia. 3. Anemia. 4. For further evaluation of 1, [address] a consult with Hematology with Dr. Young. He did see her previously on her most recent admission before she signed out against medical advice. She did have a CT of the abdomen and pelvis that was performed on 09/03 which showed some stable splenomegaly and pelvic adenopathy which was stable as well. She had bilateral nephrolithiasis with no evidence of obstructive uropathy and some constipation as well as retained gastric contents with the possibility of gastroparesis. We will also continue with studies that were previously ordered of cytometry and anemia workup. We did a microalbumin test as well as we will schedule her for a bone marrow biopsy. We have also ordered SPEP, HIV and hepatitis panel as well as a CT thorax with contrast to ensure that she does not have any extensive hilar adenopathy. We will await hematology evaluation and further recommendations for management. 5. Constipation. We have placed the patient on a bowel regimen. We will monitor response to this and continue to follow. 6. History of coronary artery disease. 7. Hypertension. 8. History of hypertension and hyperlipidemia. Her blood pressure is within normal limits at this time. We will continue to monitor. 9. Chronic pain. We have placed the patient p.r.n. orders for [place] 5 mg p.o. q.6 hours p.r.n. 10. History of diabetes mellitus. We have placed the patient on fingerstick blood sugars. We have placed a sliding scale regular insulin per low-dose protocol. 11. Deep vein thrombosis prophylaxis provided with sequential compression devices. The patient has been placed on the medical floor with telemetry. She will have vital signs every 8 hours do strict intake and output, incentive spirometry. Further orders and recommendations pending hospital course, diagnostic studies, and physician evaluation. Dictated by NABOR Kim for Balbir Bearden MD cc: Balbir Bearden MD
--- NOTE | 2018-09-05 09:36 | Diag Imaging Result Doc PS360 ---
EXAM: CT THORAX W/CONTRAST INDICATION: leukopenia? lymphoma TECHNIQUE: This exam was performed using automated exposure control, adjustment of mA or kV according to patient size, and/or use of iterative reconstruction technique. COMPARISON: None. FINDINGS: There is very minimal mosaic attenuation involving the right lower lobe suggesting mild air trapping. There is minimal platelike atelectasis in the lingula. The lungs are clear, otherwise. There is no pleural fluid collection and no pneumothorax. The heart is borderline prominent. There is no evidence of significant mediastinal or hilar lymphadenopathy. There are small shotty axillary lymph nodes. No significant lymphadenopathy is appreciated. Limited views of the upper abdomen reveals splenomegaly that is stable as compared to a recent abdominal CT dated 09/03/2018. There are extensive erosive changes of both shoulders. There is no evidence of acute osseous abnormality. IMPRESSION: 1.Minimal mosaic attenuation at the lower lobes bilaterally suggesting very mild air trapping as well as mild lingular atelectasis. No definite acute chest pathology, otherwise. 2.Borderline cardiomegaly. 3.Stable splenomegaly as compared to a recent abdominal CT. Electronically signed by Duncan Taveras 09/05/2018 9:34 AM
[2018-09-05] MEDS: GRANIX SUBQ SCH (10:37)
[2018-09-05] MEDS: HUMULIN R SUBQ SCH ×2 (12:11→16:27)
[2018-09-05] MEDS: NORCO-5 PO PRN ×2 (14:42→22:59)
[2018-09-05] MEDS: MELATONIN PO SCH (23:00)
[2018-09-06] MEDS: HUMULIN R SUBQ SCH ×4 (00:30→17:10)
[2018-09-06] MEDS: NORCO-5 PO PRN ×4 (06:41→22:41)
[2018-09-06 07:25] LABS: BASO# 0.01 X1000 (0.0-0.2); BASO% 0.5 % (0.0-0.8); EOS# 0.03 X1000 (0.0-0.7); EOS% 1.6 % (0.0-10.0); HEMATOCRIT 32.6 % (37.0-47.0); HEMOGLOBIN 10.4 g/dL (12.0-16.0); IMM GRAN# 0.02 X1000 (0.0-0.04); LYMPH# 0.87 X1000 (1.2-3.4); LYMPH% 45.5 % (20.5-51.1); MCH 26.2 PG (27-31); MCHC 31.9 g/dL (33-37); MCV 82.1 FL (81-99); MONO# 0.42 X1000 (0.11-0.59); MPV 9.7 FL (7.4-10.4); NEUT# 0.56 X1000 (1.4-6.5); NEUT% 29.4 % (42.2-75.2); PLT 154 X1000 (130-400); RBC 3.97 XMIL (4.2-5.4); RDW 17.5 % (11.5-14.5); WBC 1.91 X1000 (4.8-10.8)
[2018-09-06 07:38] LABS: AGAP 13; BUN 16 mg/dL (8-22); CALCIUM 9.1 mg/dL (8.8-10.2); CHLORIDE 100 mmol/L (98-107); COSMO 278; CREATININE 0.8 mg/dL (0.5-0.9); ESTIMATED GFR > 60; GLUCOSE 86 mg/dL (70-104); POTASSIUM 4.3 mmol/L (3.5-5.1); SODIUM 139 mmol/L (136-145); TCO2 26 mmol/L (25-35)
[2018-09-06 07:45] LABS: BANDS 27 % (0-1); LYMPHS 41 % (21-51); MONO 12 % (1-9); SEGS 17 % (42-75)
--- NOTE | 2018-09-06 11:07 | HEMO/ONC CONSULTATION ---
DATE: 09/05/2018 ADMITTING PHYSICIAN: Dr. Bearden. REQUESTING PHYSICIAN: Dr. Bearden. We appreciate this consult. CHIEF COMPLAINT: Neutropenia. HISTORY OF PRESENT ILLNESS: Ms. Reynaga is a 58-year-old, female who was recently admitted to [facility] and left against medical advice. On recent admission, the patient was found to be profoundly neutropenic. Workup had been initiated. The patient did undergo CT of the abdomen which showed splenomegaly and pelvic adenopathy. Currently, flow cytometry SPEP is pending. Bone marrow biopsy was planned. However, the patient left prior to obtaining bone marrow biopsy. The patient reported back to [facility] Emergency Department with complaints of ongoing right lower quadrant abdominal pain and nausea, with headache and dizziness. We are consulted for ongoing workup regarding neutropenia and adenopathy. PAST MEDICAL HISTORY: 1. Coronary artery disease. 2. Hypertension. 3. Hyperlipidemia. 4. Myocardial infarction. 5. Osteoarthritis. 6. Diabetes mellitus type 2. 7. Chronic neck and back pain. PAST SURGICAL HISTORY: Hysterectomy. MEDICATIONS ON ADMISSION: None. ALLERGIES: The patient is allergic to penicillin and latex. REVIEW OF SYSTEMS: A 14 point review of systems is negative except for as mentioned in the HPI. PHYSICAL EXAMINATION: Ms. Reynaga is a 58-year-old, female lying supine in bed, in no immediate distress. Vital Signs: Temperature 98.1, blood pressure 129/65, heart rate 74, respirations 14, O2 saturation is 100% on room air. HEENT: Normocephalic, atraumatic. Mucous membranes are slightly pale and dry. Sclerae are anicteric. Extraocular movements intact. Neck: Supple. Lungs: Clear to auscultation bilaterally. Chest expansion is equal bilaterally. CV: S1 and S2 are heard. No murmurs, rubs, or gallops. Abdomen: Nondistended. Tender to palpation in the right lower quadrant. Bowel sounds positive in all quadrants. No rebound or guarding noted. Extremities: Without clubbing, cyanosis, or edema. Dermatologic: No rashes, bruises, or lesions. Neurologic: The patient is awake, alert, and oriented x3. She has no focal deficits. LABORATORY DATA: ANC 0.16, hemoglobin 10.4, hematocrit 32.0, white blood cell count is 1.65, platelets 190,000. Sodium 136, potassium 4.7, chloride 97, CO2 is 28, BUN 21, creatinine 1.0, and glucose is 113. ProBNP is 1214. Urinalysis negative for UTI. ASSESSMENT AND PLAN: 1. Leukopenia and neutropenia. Workup is currently pending. Bone marrow biopsy will be scheduled for tomorrow. The patient has been placed on Granix daily and is on reverse isolation. We will continue to monitor closely. 2. Iron-deficiency anemia. Hemoglobin is stable at 10.4. The patient is status post intravenous iron replacement. We will continue to monitor CBC. 3. Abdominal pain of unknown etiology. Per hospitalist. 4. Diabetes mellitus type 2, uncontrolled. Per hospitalist. 5. Coronary artery disease, known. 6. Hypertension and hyperlipidemia. Per hospitalist. 7. Chronic pain. The patient is on pain medication per hospitalist. 8. We will follow along with you and make further recommendations pending outcomes. The above reflects the history, exam, assessment, and plan of Dr. Young. Dictated by NABOR Camacho for Edgardo Young MD cc: NABOR Camacho MD
[2018-09-06] MEDS: MIRALAX PO SCH ×3 (11:11→22:42)
[2018-09-06] MEDS: PERICOLACE PO SCH ×3 (11:11→22:42)
[2018-09-06] MEDS: LACTULOSE PO SCH ×3 (11:12→22:41)
[2018-09-06] MEDS: GRANIX SUBQ SCH (11:54)
[2018-09-06 12:30] LABS: HEPATITIS PROFILE ACUTE SEE COMMENTS
--- NOTE | 2018-09-06 13:55 | PROGRESS NOTE ---
DATE: 09/06/2018 SUBJECTIVE: This patient is lying comfortably in bed. She is not complaining of pain at this moment. She received a dose of Granix yesterday, and it is going to be on a daily basis. Her white blood cell and neutrophil counts are going up. Hematology/Oncology Department on board. She will be scheduled for a bone marrow biopsy tomorrow. OBJECTIVE: Vital Signs: Temperature 98.7 degrees, pulse 73, respiratory rate 14, blood pressure 113/63, and oxygen saturation 100% on room air. HEENT: Head normocephalic. No trauma. PERRLA. Neck: Supple. No JVD. No masses. Central trachea. Chest: Clear to auscultation. No wheezing. No rales. Abdomen: Soft, nontender, and nondistended. No hepatosplenomegaly. Extremities: No edema. No clubbing. No cyanosis. Neurological: The patient is alert and oriented x3. No focal deficits. LABORATORY: WBC 1.9, hemoglobin 10.4, hematocrit 32.6, platelet 154,000. Sodium 139, potassium 4.3, chloride 100, bicarbonate 26, BUN 16, creatinine 0.8, glucose 86, and calcium 9.1. ASSESSMENT AND PLAN: 1. Leukopenia and neutropenia. Workup has been done and currently pending. Bone marrow biopsy will be scheduled for tomorrow. We will continue following the recommendations of Hematology/Oncology Department. She is getting Granix, and the leukocyte count and the neutrophil count are better. 2. Iron deficiency anemia. Hemoglobin stable. We will continue with the same treatment. I will follow Hematology/Oncology recommendations. 3. Abdominal pain, this is better. 4. Constipation. Continue with same bowel regimen. 5. History of coronary artery disease. She is not complaining of chest pain at this moment. 6. Hypertension stable. 7. History of hyperlipidemia. We will continue to monitor. 8. Chronic pain. Continue with p.r.n. medications. 9. History of diabetes. We will continue with pattern of blood sugar and sliding scale insulin. 10. Deep vein thrombosis prophylaxis with sequential compression devices. cc: Kurt Morris MD
[2018-09-06] MEDS: NICODERM PATCH TD PRN (19:49)
[2018-09-06] MEDS: MELATONIN PO SCH (22:40)
[2018-09-07] MEDS: HUMULIN R SUBQ SCH ×5 (04:07→21:38)
[2018-09-07] MEDS ORDERED: DIPRIVAN 1% ONE ×2 (07:23→07:24)
[2018-09-07 10:49] LABS: BASO# 0.02 X1000 (0.0-0.2); BASO% 0.7 % (0.0-0.8); EOS# 0.02 X1000 (0.0-0.7); EOS% 0.7 % (0.0-10.0); HEMATOCRIT 32.6 % (37.0-47.0); HEMOGLOBIN 10.7 g/dL (12.0-16.0); IMM GRAN% 1.5 % (0.0-0.5); LYMPH# 0.89 X1000 (1.2-3.4); LYMPH% 32.8 % (20.5-51.1); MCH 26.5 PG (27-31); MCHC 32.8 g/dL (33-37); MCV 80.7 FL (81-99); MONO# 0.71 X1000 (0.11-0.59); MONO% 26.2 % (1.7-9.3); MPV 9.9 FL (7.4-10.4); NEUT# 1.03 X1000 (1.4-6.5); NEUT% 38.1 % (42.2-75.2); PLT 141 X1000 (130-400); RBC 4.04 XMIL (4.2-5.4); RDW 17.8 % (11.5-14.5); WBC 2.71 X1000 (4.8-10.8)
[2018-09-07 10:50] LABS: IMM GRAN# 0.04 X1000 (0.0-0.04)
[2018-09-07 10:55] LABS: AGAP 12; BUN 18 mg/dL (8-22); CALCIUM 9.5 mg/dL (8.8-10.2); CHLORIDE 97 mmol/L (98-107); COSMO 270; CREATININE 0.9 mg/dL (0.5-0.9); ESTIMATED GFR > 60; GLUCOSE 98 mg/dL (70-104); POTASSIUM 4.2 mmol/L (3.5-5.1); SODIUM 134 mmol/L (136-145); TCO2 25 mmol/L (25-35)
[2018-09-07 10:57] LABS: HEMOGLOBIN A1C 4.5 % (4.8-6.0)
[2018-09-07 11:09] LABS: FLOW CYTOMETERY SOURCE BONE MARROW; LEUKEMIA LYMPHOMA BY FLOW REFERRED FOR TESTING
[2018-09-07 11:11] LABS: BANDS 22 % (0-1); HYPOCHROM 1+; LYMPHS 42 % (21-51); MONO 20 % (1-9); SEGS 16 % (42-75)
[2018-09-07] MEDS: PERICOLACE PO SCH ×2 (11:28→21:35)
[2018-09-07] MEDS: LACTULOSE PO SCH ×2 (11:28→21:35)
[2018-09-07] MEDS: NORCO-5 PO PRN ×2 (11:28→19:38)
[2018-09-07] MEDS: GRANIX SUBQ SCH (11:29)
[2018-09-07] MEDS: MIRALAX PO SCH ×2 (11:29→21:35)
[2018-09-07] MEDS: XANAX PO SCH ×2 (13:29→21:35)
[2018-09-07] MEDS: MELATONIN PO SCH (21:35)
--- NOTE | 2018-09-07 21:54 | PROGRESS NOTE ---
DATE: 09/07/2018 SUBJECTIVE: The patient reports feeling fine, a little bit anxious because she did not smoke since she is in the hospital, and apparently nicotine patch is not helping her at all. OBJECTIVE: Vital Signs: Temperature 99.5 degrees, heart rate 109, respiratory rate 22, blood pressure 103/59, O2 saturation 99% on room air. General: This is a chronically ill-appearing and disheveled, 58-year-old, female, lying in bed, in no acute distress. Cardiovascular: S1, S2 heard. No murmurs, gallops, or rubs. Regular rate and rhythm. Respiratory: Clear bilaterally to auscultation. No work of breathing or using accessory muscles. Abdomen: Soft, nontender to palpation. Bowel sounds present. No organomegaly. Extremities: No clubbing, cyanosis, or edema. Peripheral pulses present in both legs. Neurological: Patient is alert and oriented x3. Moves 4 extremities. LABORATORY DATA: White cell count 2.71, hemoglobin 10.7, hematocrit 32.6, platelets 141,000. Sodium is 134. Normal renal function. Glucose 136. ASSESSMENT AND PLAN: 1. Leukopenia and neutropenia. Hematology/Oncology has been following this patient. She had bone marrow biopsy done today. The patient has been placed on Granix and definitely is helping. We will continue to monitor this patient closely. 2. Iron-deficiency anemia. Hemoglobin is stable. We will continue to monitor. 3. Abdominal pain, resolved. 4. Anxiety. The patient reports feeling very anxious. She usually takes benzodiazepines and pain pills at home. According to her, it is getting worse because she is not able to smoke. We will provide Xanax p.r.n. 5. Chronic pain. We will continue with pain medications. 6. Diabetes mellitus type 2. We will continue with sliding scale insulin, and Accu-Chek before meals and also at bedtime. 7. Disposition. I think if her numbers continue to improve, patient can be discharged tomorrow. cc: Julian Clay MD
[2018-09-08] MEDS: NORCO-5 PO PRN ×5 (02:18→21:48)
[2018-09-08] MEDS: XANAX PO SCH ×4 (02:18→21:49)
[2018-09-08] MEDS: HUMULIN R SUBQ SCH ×4 (06:26→21:50)
[2018-09-08 07:54] LABS: AGAP 12; BASO# 0.01 X1000 (0.0-0.2); BASO% 0.4 % (0.0-0.8); BUN 17 mg/dL (8-22); CALCIUM 9.2 mg/dL (8.8-10.2); CHLORIDE 97 mmol/L (98-107); COSMO 272; CREATININE 0.9 mg/dL (0.5-0.9); EOS# 0.02 X1000 (0.0-0.7); EOS% 0.9 % (0.0-10.0); ESTIMATED GFR > 60; GLUCOSE 130 mg/dL (70-104); HEMATOCRIT 29.8 % (37.0-47.0); HEMOGLOBIN 9.7 g/dL (12.0-16.0); IMM GRAN# 0.07 X1000 (0.0-0.04); IMM GRAN% 3.1 % (0.0-0.5); LYMPH# 0.92 X1000 (1.2-3.4); LYMPH% 40.7 % (20.5-51.1); MCH 26.4 PG (27-31); MCHC 32.6 g/dL (33-37); MCV 81.2 FL (81-99); MONO# 0.75 X1000 (0.11-0.59); MONO% 33.2 % (1.7-9.3); MPV 10.2 FL (7.4-10.4); NEUT# 0.49 X1000 (1.4-6.5); NEUT% 21.7 % (42.2-75.2); PLT 116 X1000 (130-400); RBC 3.67 XMIL (4.2-5.4); RDW 18.1 % (11.5-14.5); SODIUM 134 mmol/L (136-145); TCO2 25 mmol/L (25-35); WBC 2.26 X1000 (4.8-10.8)
[2018-09-08 08:38] LABS: ATYPICAL LYMPH 10 %; BANDS 12 % (0-1); LYMPHS 48 % (21-51); MONO 20 % (1-9); SEGS 10 % (42-75)
[2018-09-08] MEDS: LACTULOSE PO SCH ×2 (10:57→20:17)
[2018-09-08] MEDS: MIRALAX PO SCH ×2 (10:57→20:17)
[2018-09-08] MEDS: PERICOLACE PO SCH ×2 (10:58→20:16)
[2018-09-08] MEDS: GRANIX SUBQ SCH (12:41)
[2018-09-08] MEDS: LEXAPRO PO SCH (12:44)
[2018-09-08] MEDS ORDERED: TYLENOL PO PRN (19:02)
[2018-09-08] MEDS: MELATONIN PO SCH (20:16)
--- NOTE | 2018-09-08 20:32 | PROGRESS NOTE ---
DATE: 09/08/2018 SUBJECTIVE: The patient reports feeling better with Xanax. Unfortunately, the nurse reported to me that this patient has being smoking in the bathroom. Even though this is really obvious that this happened, tre is denying that she did that. It has been made clear to her that by smoking in the hospital, she is putting the rest of the patients at risk of having an explosion because of the oxygen. OBJECTIVE: Vital Signs: Temperature 99, heart rate 95, respiratory rate 16, blood pressure 103/52, O2 saturation 94% on room air. General: This is a [id number] and disheveled 58-year-old female lying in bed, in no acute distress. Cardiovascular: S1, S2 heard. No murmurs, gallops, or rubs. Regular rate and rhythm. Respiratory: Clear bilaterally to auscultation. No work of breathing or using accessory muscles. Abdomen: Soft. Nontender to palpation. Bowel sounds present. No organomegaly. Extremities: No clubbing, cyanosis, or edema. Peripheral pulses present in both legs. Neurological: Patient alert oriented x3. Moves 4 extremities. LABORATORY DATA: White cell count 2.26, hemoglobin 9.7, hematocrit 29.8, platelets 116, neutrophil count 0.49. ASSESSMENT AND PLAN: 1. Leukopenia and neutropenia. A bone marrow biopsy has been performed yesterday. Unfortunately, her white cell count/neutrophil count has dropped today. Patient receiving Granix. I think we are going to keep this patient until numbers are looking better, and we will continue to monitor her. 2. Iron-deficiency anemia. Hemoglobin is stable. We will continue to monitor. 3. Abdominal pain, resolved. 4. Anxiety. Patient reports being anxious. She has been started on Xanax. She reports feeling fine. She reports also she feels very depressed, and she wanted to try something for that condition. We will provide Lexapro for her. 5. Chronic pain. We will continue with pain medications. 6. Diabetes mellitus type 2. We will continue with sliding scale insulin and Accu-Cheks before meals and also at bedtime. 7. Disposition. We will continue to monitor CBC daily. cc: Julian Clay MD
[2018-09-09] MEDS: NORCO-5 PO PRN ×3 (03:00→12:12)
[2018-09-09] MEDS: XANAX PO SCH ×2 (03:00→07:59)
[2018-09-09] MEDS: HUMULIN R SUBQ SCH ×2 (06:20→12:12)
[2018-09-09] MEDS: LACTULOSE PO SCH ×2 (07:59→09:02)
[2018-09-09] MEDS: PERICOLACE PO SCH (07:59)
[2018-09-09] MEDS: LEXAPRO PO SCH (07:59)
[2018-09-09] MEDS: MIRALAX PO SCH ×2 (07:59→09:02)
[2018-09-09 08:42] VITALS: BP 106/57
[2018-09-09] MEDS: NICODERM PATCH TD PRN (09:02)
[2018-09-09] MEDS: GRANIX SUBQ SCH (09:02)
--- NOTE | 2018-09-09 10:11 | DISCHARGE SUMMARY ---
ADMISSION DATE: 09/05/2018 DISCHARGE DATE: 09/09/2018 DISCHARGE DIAGNOSES: 1. Neutropenia and leukopenia, under evaluation. 2. Anemia of chronic disease. 3. History of coronary artery disease. 4. History of hypertension and hyperlipidemia. 5. History of diabetes mellitus. CONSULTATIONS: Dr. Young from Hematology/Oncology. PROCEDURES: 1. Chest CT done on admission showed borderline cardiomegaly. 2. Chest CT showed minimal mosaic attenuation in the lower lobes bilaterally, suggesting very mild air trapping. No definite acute chest pathology. Stable splenomegaly as well. 3. Bone marrow biopsy performed on 09/07/2018. HOSPITAL COURSE: In brief, this is a patient who was admitted to our facility and left AGAINST MEDICAL ADVICE last time she was here. This time she was admitted for the same condition and anemia as well. The CT of the abdomen showed splenomegaly. The reason why she returned to the ER was because of abdominal pain. The spleen, according to the CT of the chest, was basically stable. They did some lab tests the last time she was here, like cytometry, SPEP, LDH, and beta 2 microglobulin. At this point, we ordered a bone marrow biopsy that was done 2 days ago. We were checking CBC daily. She was started on Granix, but unfortunately she started refusing care over the last 2 days. She refused labs on the date of discharge. Also, she was told not to smoke in the hospital, but she continued doing that for the last 2 days. She was really strongly advised to not do that because of the risk of fire with the oxygen line that we have, but unfortunately she did not understand. At this time, she expressed her desire to go, and she is going to be discharged. She is supposed to call Dr. Young's office during the next week to review the results of bone marrow biopsy. As we mentioned, today she refused to have her labs checked. PHYSICAL EXAMINATION: Vital Signs: Temperature 98.9 degrees, heart rate 82, respiratory rate 18, blood pressure 101/54, O2 saturation 98% on room air. General: This is a chronically ill- appearing, disheveled, 58-year-old, female, lying in bed in no acute distress. Cardiovascular: S1, S2 heard. No murmurs, gallops, or rubs. Regular rate and rhythm. Respiratory: Clear bilaterally to auscultation. No work of breathing or using accessory muscles. Abdomen: Soft, nontender to palpation. Bowel sounds present. No organomegaly. Extremities: No clubbing, cyanosis, or edema. Peripheral pulses present in both legs. Neurological: The patient is alert and oriented x3, moving all 4 extremities. DISCHARGE DISPOSITION: Home to self-care. DISCHARGE MEDICATIONS: Escitalopram 10 mg 1 tablet p.o. daily. FOLLOWUP: Follow up with Dr. Young during the next week. cc: Julian Clay MD [facility]
[2018-09-14 13:58] LABS: TEST NAME CHROM ANALYSIS BM
== END 2018-09-09 12:49 | disposition home or self-care (01) | DRG 810 ==
LOC: ED 01:11 → 3N 06:17 → SUATTDRO 06:17
PROVIDERS: ATTEND Internal Medicine
CPT/HCPCS: 71010; 71045; 71260; 80048; 80053; 80074; 81001; 82175; 82300; 82948; 83036; 83605; 83615; 83655; 83825; 83880; 84484; 85025; 85999; 88305; 88311; 88313; 94761; 94799; 96374; 99285; A9270; J1446; J1447; J2405; J7030; Q9967; XXXXX

== ENCOUNTER 2018-10-11 09:51 | Inpatient (IN) ==
[2018-10-11] MEDS ORDERED: ASPIRIN PO ONE (10:00)
[2018-10-11] MEDS ORDERED: TORADOL IV ONE (10:17)
[2018-10-11] MEDS ORDERED: G.I. COCKTAIL PO ONE (10:17)
--- NOTE | 2018-10-11 10:17 | EKG Report ---
Test Performed on : 10/11/2018 10:02:07 AM Test Reason : chest pain Blood Pressure : / mmHG Vent. Rate : 096 BPM Atrial Rate : 096 BPM P-R Int : 140 ms QRS Dur : 090 ms QT Int : 338 ms P-R-T Axes : 038 -03 092 degrees QTc Int : 427 ms Normal sinus rhythm. Possible Left atrial enlargement T wave abnormality, consider lateral ischemia Abnormal ECG When compared with ECG of 14-SEP-2018 21:12, (Unconfirmed) Borderline criteria for Lateral infarct are no longer present Unconfirmed Result
[2018-10-11 10:33] LABS: HEMATOCRIT 26.1 % (37.0-47.0); HEMOGLOBIN 8.8 g/dL (12.0-16.0); RBC 3.24 XMIL (4.2-5.4)
[2018-10-11 10:34] LABS: INR 0.99; LYMPH% 46.7 % (20.5-51.1); MCH 27.2 PG (27-31); MCHC 33.7 g/dL (33-37); MCV 80.6 FL (81-99); MONO% 38.4 % (1.7-9.3); MPV 7.7 FL (7.4-10.4); NEUT% 14.9 % (42.2-75.2); PLT 253 X1000 (130-400); PROTIME 13.6 Seconds (11.0-16.0); RDW 15.4 % (11.5-14.5)
[2018-10-11 10:35] LABS: PTT 36.3 Seconds (22.3-41.8)
[2018-10-11 10:39] LABS: AGAP 11; ALKALINE PHOSPHATASE 86 U/L (32-104); BUN 15 mg/dL (8-22); CALCIUM 8.3 mg/dL (8.8-10.2); CHLORIDE 98 mmol/L (98-107); CK PROFILE 29 U/L (24-173); COSMO 269; CREATININE 0.8 mg/dL (0.5-0.9); ESTIMATED GFR > 60; GLUCOSE 127 mg/dL (70-104); GOT 11 U/L (10-30); GPT 5 U/L (10-36); POTASSIUM 3.5 mmol/L (3.5-5.1); SODIUM 133 mmol/L (136-145); TCO2 24 mmol/L (25-35)
--- NOTE | 2018-10-11 10:39 | Diag Imaging Result Doc PS360 ---
CHEST-2 VIEWS - 10/11/2018 INDICATION: chest pain COMPARISON: 09/14/2018 FINDINGS: The lungs are normally expanded and clear. Heart size and mediastinal contours are normal. No pneumothorax or pleural effusion. IMPRESSION: Negative exam. Electronically signed by Juan Weston 10/11/2018 10:37 AM
[2018-10-11 11:23] LABS: LYMPHS 62 % (21-51); MONO 16 % (1-9); SEGS 20 % (42-75)
[2018-10-11 11:24] LABS: ANISOCYTOSIS 2+; HYPOCHROM 1+
[2018-10-11] MEDS ORDERED: DILAUDID IV ONE ×2 (11:58→16:30)
[2018-10-11] MEDS ORDERED: ZOFRAN IV ONE (11:59)
--- NOTE | 2018-10-11 12:33 | PROVIDER DOCUMENTATION ---
This chart was entered by Wali Sanchez Scribe, acting as scribe for Joel Singer MD. HPI-Chest Pain - General Chief Complaint: Chest Pain Stated Complaint: chest pain Time Seen by Provider: 10/11/18 10:00 Source: patient Allergies/Adverse Reactions: Patient Allergies Allergy/AdvReac Type Severity Reaction Status Date / Time Penicillins Allergy Intermediate swelling, Verified 06/13/18 09:04 rash latex Allergy RASH Verified 06/13/18 09:04 Home Medications: Home Medication List Medication Instructions Recorded Confirmed Last Taken Type Alprazolam [Xanax] 0.5 mg PO Q12HR #15 tab 09/09/18 Unknown Rx Escitalopram [Lexapro] 10 mg PO QAM #90 tab 09/09/18 Unknown Rx Hydrocodone/APAP 5 mg/325 mg 1 tab PO Q4H PRN PRN #15 tab 09/09/18 Unknown Rx [[place]-5] Promethazine [Phenergan] 25 mg PO Q6H PRN PRN #12 tab 09/09/18 Unknown Rx Nitrofurantoin Monohyd/M-Cryst 100 mg PO BID #14 cap 09/15/18 Unknown Rx [Macrobid 100 mg Capsule] - History of Present Illness-CP Nature of Presenting Problem: Pt is a 58 yof who presents to the ED via EMS with a CC of chest pain. Pt states she began having chest pain yesterday and states it is getting worse. Pt reports her pain started in her right arm and moved to her chest and states it is staying where her stents are. Pt also complains of being nauseas and SOB. Pt reports a hx of cardiac stents and HTN. Upon examination the pt was tender to the epigastric region of her abdomen and to the right side of her chest wall. Pt denies any recent injury or fall. Location: reports: central, epigastric Chest Pain Radiation: reports: arms (Right) Quality of Pain: reports: aching, pressure, stabbing Severity in ED: mild Onset/Duration: 24 hours ago Timing: still present, getting worse Associated Symptoms: reports: nausea, shortness of breath Prior Chest Pain/Cardiac Workup: reports: heart attack Similar Symptoms Previously?: No Recently Seen Here or By Another Healthcare Provider: Yes Review of Systems - Adult - REVIEW OF SYSTEMS - ADULT Constitutional: reports: see HPI Eyes: reports: no symptoms reported Ears, Nose, Mouth & Throat: reports: no symptoms reported Cardiovascular: reports: see HPI, chest pain Respiratory: reports: see HPI, shortness of breath Gastrointestinal: reports: see HPI, abdominal pain, nausea Genitourinary: reports: no symptoms reported Musculoskeletal: reports: no symptoms reported Integumentary: reports: no symptoms reported Neurological: reports: no symptoms reported Psychiatric: reports: no symptoms reported Endocrine: reports: no symptoms reported Hematologic/Lymphatic: reports: no symptoms reported Allergic/Immunologic: reports: no symptoms reported All Other Systems: Reviewed and Negative Past History - Adult - PAST MEDICAL HISTORY-ADULT Review of Records: reports: Old Records Reviewed, Nursing Assessment Review, Medications Reviewed, Social history reviewed & non-contributory. Major Childhood Illnesses: reports: denies history Cardiovascular: reports: CAD, HTN, hyperlipidemia, SD Respiratory: reports: asthma Gastrointestinal: reports: denies history Obstetrical/Gynecological: reports: denies history Genitourinary: reports: denies history Musculoskeletal: reports: chronic pain, intervertebral disc disease, neck/back injury Neurological: Psychiatric: reports: anxiety, psychiatric problems (panic attacks) Endocrine/Immune: reports: Diabetes Other Conditions: reports: denies history - PRIOR SURGERIES/PROCEDURES Surgical/Procedure History: reports: cholecystectomy, cardiac stent, hysterectomy, BTL, other (cleft palate) - PRIOR HOSPITALIZATIONS Prior Hospitalizations: reports: none - IMMUNIZATION STATUS Childhood Immunizations: See Nurse Assessment Flu Vaccine: See Nurse Assessment - FAMILY HISTORY Family History: reviewed, not pertinent - SOCIAL HISTORY Smoking: cigarettes, less than 1 pack/day Substance Use: none/never, denies Physical Exam-General - PHYSICAL EXAM-ADULT Initial Vital Signs Reviewed: Yes - CONSTITUTIONAL General Appearance: alert, mild distress - EYES Eyes: PERRL/EOMI, pink conjunctivae - NECK Neck: non-tender, full range of motion - RESPIRATORY Respiratory: lungs clear, normal breath sounds, no respiratory distress, no accessory muscle use - CARDIOVASCULAR Cardiovascular: normal peripheral pulses, regular rate, rhythm, no edema, no gallop, no JVD - GASTROINTESTINAL (ABDOMEN) Abdominal Exam: tenderness - MUSCULOSKELETAL Extremity: normal range of motion, non-tender - SKIN Integumentary: normal color, warm/dry - NEUROLOGIC Neurologic: grossly normal, no motor/sensory deficits - PSYCHIATRIC Psych/Mental Status: normal mood/affect, normal thought content, normal thought process, oriented x 3 - HEART Score HEART Score: History: Moderately Suspicious HEART Score: ECG: Non-Specific Repolarization Disturbance/LBBB/PM HEART Score: Age: 45-65 Years HEART Score: Risk Factors for Atherosclerotic Disease: > or = 3 Risk Factors or History of Atherosclerotic Disease HEART Score: Troponin: < or = Normal Limit Total HEART Score:: 5 Progress - PLAN OF CARE/RESULTS Progress/Plan/Lab Results: Vital Signs - 8 hr 10/11/18 09:55 10/11/18 12:28 Temperature 98 F 98 F Pulse Rate 98 H 79 Respiratory Rate 18 16 Blood Pressure 132/76 98/59 O2 Sat by Pulse Oximetry 98 98 Laboratory Results - last 24 hr 10/11/18 10/11/18 10/11/18 10:10 10:10 10:10 WBC 1.30 L RBC 3.24 L Hgb 8.8 L Hct 26.1 L MCV 80.6 L MCH 27.2 MCHC 33.7 RDW Std Deviation 15.4 H Plt Count 253 MPV 7.7 Neut % (Auto) 14.9 L Lymph % (Auto) 46.7 [place] % (Auto) 38.4 H Eos % (Auto) Not Reportable Baso % (Auto) Not Reportable Neut # (Auto) 0.20 L* Lymph # (Auto) 0.60 L [place] # (Auto) 0.50 Eos # (Auto) Not Reportable Baso # (Auto) Not Reportable Segmented Neutrophils 20 L Lymphocytes 62 H Monocytes 16 H Pathologist Review Atypical Lymphocytes 2.0 Hypochromia 1+ Anisocytosis 2+ PT INR PTT (Actin FS) Sodium 133 L Potassium 3.5 Chloride 98 Carbon Dioxide 24 L Anion Gap 11 BUN 15 Creatinine 0.8 Estimated GFR/1.73 m2 > 60 BUN/Creatinine Ratio 19 Glucose 127 H Calculated Osmolality 269 Calcium 8.3 L Total Bilirubin 0.50 AST 11 ALT 5 L Alkaline Phosphatase 86 Creatine Kinase 29 Troponin T Ghe-C-Ygbgyndlogl Pept 935 H Total Protein 7.0 Albumin 3.0 L Globulin 4.0 Albumin/Globulin Ratio 1.0 Monoscreen 10/11/18 10/11/18 10/11/18 10:10 10:10 10:10 WBC RBC Hgb Hct MCV MCH MCHC RDW Std Deviation Plt Count MPV Neut % (Auto) Lymph % (Auto) [place] % (Auto) Eos % (Auto) Baso % (Auto) Neut # (Auto) Lymph # (Auto) [place] # (Auto) Eos # (Auto) Baso # (Auto) Segmented Neutrophils Lymphocytes Monocytes Pathologist Review Atypical Lymphocytes Hypochromia Anisocytosis PT 13.6 INR 0.99 PTT (Actin FS) 36.3 Sodium Potassium Chloride Carbon Dioxide Anion Gap BUN Creatinine Estimated GFR/1.73 m2 BUN/Creatinine Ratio Glucose Calculated Osmolality Calcium Total Bilirubin AST ALT Alkaline Phosphatase Creatine Kinase Troponin T < 0.010 Oum-M-Rhgkgsmlive Pept Total Protein Albumin Globulin Albumin/Globulin Ratio Monoscreen NEGATIVE Orders Category Date Time Status Cardiac Monitoring DIRECTED Care 10/11/18 10:01 Active Oxygen Therapy- ED Nursing DIRECTED Care 10/11/18 10:01 Active Saline Loc NOW Care 10/11/18 10:01 Active CHEST-2 VIEWS [RAD] Stat Exams 10/11/18 10:01 Completed CBC WITH ELECTRONIC DIFF [HEME] Stat Lab 10/11/18 10:10 Completed CK PROFILE [SP CHEM] Stat Lab 10/11/18 10:10 Completed CK PROFILE [SP CHEM] Stat Lab 10/11/18 12:05 Received COMPREHENSIVE METABOLIC PANEL [CHEM] Stat Lab 10/11/18 10:10 Completed MONO SCREEN [SERO] Stat Lab 10/11/18 10:10 Completed PRO B-NATRIURETIC PEPTIDE Stat Lab 10/11/18 10:10 Completed PROTIME WITH INR [COAG] Stat Lab 10/11/18 10:10 Completed PTT [COAG] Stat Lab 10/11/18 10:10 Completed TROPONIN T Stat Lab 10/11/18 10:10 Completed TROPONIN T Stat Lab 10/11/18 11:57 Received Aspirin Med 10/11/18 10:00 Discontinued 325 mg PO NOW ONE Hydromorphone [Dilaudid] Med 10/11/18 11:58 Discontinued 1 mg IV NOW ONE Ketorolac [Toradol] Med 10/11/18 10:17 Discontinued 15 mg IV NOW ONE Lido/Franco Alk/Al&mg Hydrox [G.i. Cocktail] Med 10/11/18 10:17 Discontinued 30 ml PO NOW ONE Ondansetron [Zofran] Med 10/11/18 11:59 Discontinued 4 mg IV NOW ONE CP/SOB/Palp >45 yrs of Age Stat Oth 10/11/18 10:00 Ordered EKG [EKG] Stat Ther 10/11/18 10:01 Draft EKG [EKG] Stat Ther 10/11/18 11:57 Ordered Result Diagrams: 10/11/18 10:10 10/11/18 10:10 - EKG 1 Time of EKG reading by physician:: 10:02 EKG Read and Signed by:: Joel Singer EKG Interpretation (*Must complete 3 of following elements*): Abnormal (Possible left atrial enlargement; T wave abnormality, consider lateral ischemia) Rate: 96 Rhythm: NSR [place]: left QRS: normal AR Interval: normal ST Wave: non-specific ST changes 2 Time of EKG reading by physician:: 12:16 EKG Read and Signed by:: Joel Singer EKG Interpretation (*Must complete 3 of following elements*): Abnormal (Possible left atrial enlargement; Cannot rule out anterior infarct, age undetermined) Rate: 75 Rhythm: NSR [place]: left QRS: normal AR Interval: normal ST Wave: normal - XRAY 1 XRAY: Bilateral XRAY Study: Chest Impression: See EMR Report (CHEST-2 VIEWS - 10/11/2018 INDICATION: chest pain COMPARISON: 09/14/2018 FINDINGS: The lungs are normally expanded and clear. Heart size and mediastinal contours are normal. No pneumothorax or pleural effusion. IMPRESSION: Negative exam. Electronically signed by Juan Wesotn 10/11/2018 10:37 AM 10/11/18 1037 Interpreting Physician: Juan Weston MD Dictated Date/Time: 10/11/18 1037 cc: Joel Singer MD; None,PCP) - CONSULTS/PCP/HOSPITALIST Notification #1 *Consult/PCP/Hospitalist*: Ginette Lindo Time Discussed: 12:00 Consult Disposition: Will see in ED, Admit Departure - Departure Date of Disposition Decision: 10/11/18 Time of Disposition Decision: 12:32 DIAGNOSIS: Chest pain, Leukopenia Disposition: ADMITTED INPATIENT 09 Certified Medical Emergency: Emergent Condition: Fair Additional Freetext Instructions: ED Follow Up Instructions: You have been treated by a care provider in the Emergency Department. These instructions are being provided to you so you can have an understanding of how to care for yourself upon discharge. Upon discharge from the Emergency Department, you are responsible for making arrangements for follow-up care by a physician of your choice. Take all prescribed medications as directed. Return to the Emergency Department immediately for any new or worsening symptoms. You may call the Physician Referral phone number at [phone] to obtain a list of Physicians who are taking new patients. Referrals and Follow-Ups: None,PCP [Primary Care Provider] - - Critical Care Note This patient required my direct & personal management of CC.: No Attestation - Physician/ GRAHAM Attestation Patient care was provided by Advanced Practice Provider:: No The physician spent face to face time with patient:: Yes Advanced Practice Provider documentation review:: Supervising physician onsite and consulted in the evaluation and care of this patient. The physician did have a face to face encounter with the patient. This chart was documented by the indicated scribe, (Wali Sanchez, Lloyd) and accurately reflects the services I performed and decisions made by me, Joel Singer MD, as attested by the provider's signature.
--- NOTE | 2018-10-11 14:19 | EKG Report ---
Test Performed on : 10/11/2018 12:16:30 PM Test Reason : repeat Blood Pressure : / mmHG Vent. Rate : 075 BPM Atrial Rate : 075 BPM P-R Int : 140 ms QRS Dur : 092 ms QT Int : 388 ms P-R-T Axes : 049 -25 098 degrees QTc Int : 433 ms Normal sinus rhythm. Possible Left atrial enlargement Cannot rule out Anterior infarct , age undetermined Abnormal ECG When compared with ECG of 11-OCT-2018 10:02, (Unconfirmed) No significant change was found Unconfirmed Result
[2018-10-11] MEDS ORDERED: HUMALOG SUBQ SCH (16:00)
--- NOTE | 2018-10-11 17:56 | HISTORY AND PHYSICAL ---
CHIEF COMPLAINT: Chest pain. HISTORY OF PRESENT ILLNESS: This is a 58-year-old female who presented to the emergency room complaining of chest pain that started in her right arm and moved to her chest. She had some accompanying nausea and shortness of breath. The patient states about a year ago she had stents placed at [place], although she has had no follow-up as she is homeless and does not have a car to get to her appointments. She states that this pain just started yesterday. She denies any palpitations, syncope, or dizziness. PAST MEDICAL HISTORY: 1. Coronary artery disease status post stents in 2018. 2. Neutropenia and leukopenia. 3. Anemia of chronic disease. 4. Hypertension. 5. Diabetes mellitus. PAST SURGICAL HISTORY: Hysterectomy. SOCIAL HISTORY: As stated before, she is homeless. She smokes a pack a day. She denies any alcohol or illicit drug use. ALLERGIES: Penicillin which causes swelling and latex causes a rash. HOME MEDICATIONS: At present the patient states she is taking no medications. PHYSICAL EXAMINATION: GENERAL: This is a 58-year-old female who is lying on the stretcher in the emergency room, in no distress. VITAL SIGNS: Blood pressure is 132/76, with a heart rate of 90, respirations are 18, temperature is 98 degrees, with room air saturations 98 to 100. EYES: Pupils equal, round, react to light. EOMs are intact. Sclerae anicteric. HENT: Head is normocephalic, atraumatic. Mucous membranes are moist. NECK: Supple with trachea midline. CARDIOVASCULAR: Regular rate and rhythm. S1 and S2 are appreciated. Calves are nontender bilateral. PULMONARY: Breath sounds are clear. No increased work of breathing noted. Chest rises and falls symmetric with respiration. GASTROINTESTINAL: Abdomen is soft. She does have some epigastric tenderness to palpation, as well as to her lower ribs, with bowel sounds in all 4 quadrants. GENITOURINARY: She has no CVA nor suprapubic tenderness. SKIN: Warm and dry. LABS: WBC is 1.3, with hemoglobin 8.8, hematocrit 26.1, and platelets of 253,000. Neutrophils are 0.20. INR 0.99. Sodium 133, potassium 3.5, BUN 15, creatinine 0.8, glucose of 127. Troponins are negative on multiple occasions. Casey is negative. Her EKG reveals sinus rhythm at a rate of 75. Chest x-ray reveals a negative exam. ASSESSMENT: 1. Chest pain. 2. Leukopenia and neutropenia. 3. Anemia of chronic disease. 4. History of coronary artery disease. 5. History of hypertension. 6. History of diabetes mellitus. PLAN: The patient will be admitted to [facility]. She will be placed on telemetry. We will continue to trend her troponins. Will check an EKG in the morning. She will be placed on a neutropenic diet. We will check a BMP and CBC in the morning. We will consult Dr. Young. The patient states that she never followed up with Dr. Young after having a workup in the hospital in August of 2018 for results of bone marrow biopsy. She will be placed on pattern blood glucose with sliding scale insulin. Further treatments pending hospital course. Plan was discussed with Dr. Lindo. Dictated by NABOR Sutherland for Simon Lindo MD cc: NABOR Sutherland MD
--- NOTE | 2018-10-11 20:03 | HISTORY AND PHYSICAL ---
ADDENDUM: Patient seen and examined by myself. Full note dictated and discussed with nurse practitioner. Patient presented to the hospital with chest pain that started yesterday, epigastric pressure and stabbing in nature. We are going to admit her to the hospital, rule out ME. Currently, enzymes are negative. She is noted to have a low white count at 1.3, has a history of bone marrow biopsy recently, but I do not have the results of that. We are going to admit her to the hospital, transfer her to [facility] and ask Hematology to evaluate. cc: Simon Lindo MD
[2018-10-12] MEDS: ZOFRAN IV PRN ×6 (00:40→22:56)
[2018-10-12] MEDS: MORPHINE IV PRN ×6 (00:41→22:56)
[2018-10-12 06:28] LABS: HEMOGLOBIN 7.9 g/dL (12.0-16.0); LYMPH% 59.9 % (20.5-51.1); MCH 25.8 PG (27-31); MCHC 31.6 g/dL (33-37); MCV 81.7 FL (81-99); MPV 8.5 FL (7.4-10.4); NEUT% 12.5 % (42.2-75.2); PLT 238 X1000 (130-400); RBC 3.06 XMIL (4.2-5.4); RDW 16.1 % (11.5-14.5); WBC 1.52 X1000 (4.8-10.8)
[2018-10-12 06:29] LABS: BASO# 0.01 X1000 (0.0-0.2); BASO% 0.7 % (0.0-0.8); EOS# 0.06 X1000 (0.0-0.7); EOS% 3.9 % (0.0-10.0); LYMPH# 0.91 X1000 (1.2-3.4); MONO# 0.35 X1000 (0.11-0.59); NEUT# 0.19 X1000 (1.4-6.5)
[2018-10-12 06:37] LABS: AGAP 7; BUN 14 mg/dL (8-22); CALCIUM 8.4 mg/dL (8.8-10.2); CHLORIDE 101 mmol/L (98-107); COSMO 265; CREATININE 0.8 mg/dL (0.5-0.9); ESTIMATED GFR > 60; GLUCOSE 96 mg/dL (70-104); POTASSIUM 4.5 mmol/L (3.5-5.1); SODIUM 132 mmol/L (136-145); TCO2 24 mmol/L (25-35)
--- NOTE | 2018-10-12 07:00 | EKG Report ---
Test Performed on : 10/12/2018 06:41:19 AM Test Reason : chest pain Blood Pressure : / mmHG Vent. Rate : 077 BPM Atrial Rate : 077 BPM P-R Int : 150 ms QRS Dur : 092 ms QT Int : 374 ms P-R-T Axes : -25 -12 083 degrees QTc Int : 423 ms Normal sinus rhythm. Nonspecific T wave abnormality Abnormal ECG When compared with ECG of 11-OCT-2018 12:16, (Unconfirmed) No significant change was found Confirmed by Kalyn Desir MD ([id number]) on 10/15/2018 8:32:27 AM
[2018-10-12] MEDS: GRANIX SUBQ SCH (13:42)
--- NOTE | 2018-10-12 14:33 | PROGRESS NOTE ---
DATE: 10/12/2018 SUBJECTIVE: Ms. Reynaga feels a little better. She says she is a little more comfortable and breathing comfortably. OBJECTIVE: Vital Signs: Remains afebrile, temperature 98.5 degrees, pulse 72, respirations 16, blood pressure 153/70, HEENT: Pupils are equal round. Lungs: Clear in all lung clinton. Cardiovascular: Regular rhythm and rate without murmur or S3. LABORATORY DATA: Blood sugars 121 and 89. This is a 58-year-old who presented to the emergency room complaining of chest pain that started in her right arm moved to her chest. She has had some accompanying nausea and shortness of breath. About a year ago, she had some stents placed in [place]. She has had no follow-up. [place]. I think she lives with her boyfriend. PAST MEDICAL HISTORY: 1. Coronary artery disease status post stents in 2018. 2. Neutropenia, leukopenia. 3. Anemia of chronic disease. 4. Hypertension. 5. Diabetes mellitus type 2. PAST SURGICAL HISTORY: Hysterectomy. She presented with chest pain, leukopenia, neutropenia, anemia of chronic disease, history of coronary artery disease, history of hypertension, and diabetes mellitus type 2. ASSESSMENT AND PLAN: 1. Leukopenia, so we will watch this. I think she has had a bone marrow in the past. She really has pancytopenia and except for platelets, she has an anemia and neutropenia. Make sure we check B12 and folate and encourage some p.o. intake, good nutrition. 2. History of coronary artery disease. Does not appear that she is having any active cardiac ischemia. 3. History of hypertension. 4. History of diabetes mellitus, which is questionable. We will continue to pattern sugars. I do think we probably ought to get a urine for drug screen. I think it would be worthwhile to check B12 and folate. We need to check her thyroid. Her troponins and CK, cardiac enzymes were negative. cc: Alex Villa MD MTDD
[2018-10-12] MEDS ORDERED: NS 500 ML IV ONE (16:00)
[2018-10-13] MEDS: ZOFRAN IV PRN ×4 (03:02→22:52)
[2018-10-13] MEDS: MORPHINE IV PRN ×6 (03:03→22:52)
[2018-10-13 06:51] LABS: BASO# 0.01 X1000 (0.0-0.2); BASO% 0.5 % (0.0-0.8); EOS# 0.02 X1000 (0.0-0.7); HEMATOCRIT 32.1 % (37.0-47.0); HEMOGLOBIN 10.3 g/dL (12.0-16.0); LYMPH# 0.58 X1000 (1.2-3.4); LYMPH% 30.1 % (20.5-51.1); MCH 25.9 PG (27-31); MCHC 32.1 g/dL (33-37); MCV 80.9 FL (81-99); MONO# 0.45 X1000 (0.11-0.59); MONO% 23.3 % (1.7-9.3); MPV 9.1 FL (7.4-10.4); NEUT# 0.87 X1000 (1.4-6.5); NEUT% 45.1 % (42.2-75.2); PLT 229 X1000 (130-400); RBC 3.97 XMIL (4.2-5.4); RDW 16.3 % (11.5-14.5); WBC 1.93 X1000 (4.8-10.8)
[2018-10-13 07:11] LABS: AGAP 7; ALB/GLOB RATIO 0.6; ALBUMIN 2.7 g/dL (3.5-5.0); ALKALINE PHOSPHATASE 83 U/L (32-104); BUN 10 mg/dL (8-22); CALCIUM 8.7 mg/dL (8.8-10.2); CHLORIDE 99 mmol/L (98-107); COSMO 263; CREATININE 0.7 mg/dL (0.5-0.9); ESTIMATED GFR > 60; GLUCOSE 90 mg/dL (70-104); GOT 13 U/L (10-30); GPT 6 U/L (10-36); MAGNESIUM 1.6 mg/dL (1.5-2.7); POTASSIUM 4.2 mmol/L (3.5-5.1); SODIUM 132 mmol/L (136-145); TCO2 26 mmol/L (25-35); TOTAL BILIRUBIN 1.15 mg/dL (0.20-1.00); TOTAL PROTEIN 7.2 g/dL (6.3-8.3)
[2018-10-13 07:45] LABS: FREE T4 1.32 ng/dL (0.93-1.70); TSH 0.7 uIUmL (0.27-4.20)
--- NOTE | 2018-10-13 09:39 | PROGRESS NOTE ---
DATE: 10/13/2018 SUBJECTIVE: Ms. Reynaga says she is still hurting, mainly in her legs. She said she tore some ligaments in her right knee and she got a little bit of sleep. She said it was about 50/ 50. She is eating yesterday, a lot of it came back up, but she is doing better this morning, ate about a good 2/3 of her breakfast. OBJECTIVE: Vital Signs: Temperature 98.7 degrees, pulse 96, respirations 18, blood pressure 116/64. Eyes: Pupils are equal and round. Lungs: Lungs are clear in all lung clinton. Cardiovascular exam: Regular rhythm and rate without murmur or S3. Abdomen: Soft. Skin: Skin is warm and dry. ASSESSMENT AND PLAN: Leukopenia and anemia. They have done a bone marrow in the past, which was nonspecific. White count seems to be coming back up; it is 1930. Hematocrit is 32 hemoglobin is 10, platelet count 229,000. Chemistry: Sodium 132, potassium 4.2, chloride 99. BUN 10, creatinine 0.7, total bilirubin 1.15, albumin is 2.7. REVIEW OF HER ORDERS: We have no indications of an infection, but severe neutropenia and anemia on main presentation. [place] lives [address] really. We are giving her some Granix 480 mcg subcutaneous daily. Seems to be improving. Continue present measures. cc: Alex Villa MD
[2018-10-13] MEDS: GRANIX SUBQ SCH (10:50)
[2018-10-14] MEDS: NORCO-7.5 PO PRN ×3 (01:31→13:14)
[2018-10-14] MEDS: GRANIX SUBQ SCH (09:29)
[2018-10-14] MEDS ORDERED: MILK OF MAGNESIA PO PRN (10:11)
[2018-10-14] MEDS ORDERED: DULCOLAX PR PRN (10:11)
[2018-10-14] MEDS: MIRALAX PO SCH (11:02)
[2018-10-14] MEDS: XANAX PO SCH ×2 (11:02→23:01)
--- NOTE | 2018-10-14 13:39 | PROGRESS NOTE ---
DATE: 10/14/2018 Ms. Reynaga states that she does feel a little better. She is still kind of aching all over, especially both of her knees. She remains afebrile, temperature 98.1 degrees, pulse 78-97, respirations 20, blood pressure 125/67. Pupils are equal and round. Lungs are clear in all lung clinton. Cardiovascular regular rate without murmur or S3. Abdomen is soft. Skin is warm and dry. Urine output is 1900 mL. Blood sugar 110, 92 to 103. ASSESSMENT AND PLAN: 1. Leukopenia and anemia. White count slowly seems to be climbing up, not sure the reason could be from infection. 2. History of coronary artery disease. Does not appear to have any active cardiac ischemia at this time. 3. History of hypertension. 4. Diabetes mellitus. Blood sugars appear to be to be under good control. As far as discharge planning, she is homeless. [place] in the [place]. We are going to have to figure out a plan. REVIEW OF ORDERS: She is on Xanax 0.25 mg b.i.d. and MiraLAX 17 g p.o. daily, Granix 480 mcg subcutaneously. She gets this every day. cc: Alex Villa MD
[2018-10-15] MEDS: TYLENOL PO PRN (03:45)
[2018-10-15 06:51] LABS: BASO# 0.01 X1000 (0.0-0.2); BASO% 0.4 % (0.0-0.8); EOS# 0.06 X1000 (0.0-0.7); EOS% 2.7 % (0.0-10.0); HEMATOCRIT 29.4 % (37.0-47.0); HEMOGLOBIN 9.5 g/dL (12.0-16.0); LYMPH# 0.63 X1000 (1.2-3.4); LYMPH% 28.1 % (20.5-51.1); MCHC 32.3 g/dL (33-37); MCV 80.3 FL (81-99); MONO# 0.49 X1000 (0.11-0.59); MONO% 21.9 % (1.7-9.3); MPV 9.4 FL (7.4-10.4); NEUT# 1.05 X1000 (1.4-6.5); NEUT% 46.9 % (42.2-75.2); PLT 197 X1000 (130-400); RBC 3.66 XMIL (4.2-5.4); RDW 16.3 % (11.5-14.5); WBC 2.24 X1000 (4.8-10.8)
[2018-10-15 07:35] LABS: EOS 4 % (1-10); LYMPHS 28 % (21-51); MONO 16 % (1-9); SEGS 52 % (42-75)
--- NOTE | 2018-10-15 09:20 | PROGRESS NOTE ---
DATE: 10/15/2018 SUBJECTIVE: Ms. Reynaga states she is still hurting quite a bit. She is eating well. She did complain of a little bit of nausea. OBJECTIVE: Vital Signs: She remains afebrile. Temperature 97.9 degrees, pulse 112, respirations 24 and blood pressure 157/126, which is out of line. Her other blood pressures have been 116/64, 121/51, 101/85, 115/61. HEENT: Pupils are equal. Neck: No distended neck veins. Lungs: Clear in all lung clinton. Cardiovascular: Regular rhythm and rate without murmur or S3. LABORATORY DATA: Blood sugar 110, 92, 163, 91. ASSESSMENT AND PLAN: 1. Leukopenia and anemia. Her blood counts have come up nicely. Hematocrit is 29, hemoglobin 9.5, white blood cell count 2240. Suspect this is an anemia secondary to infection. 2. She has no home. She is homeless. We are going to have to figure out some place to go. 3. She complains of pain which is chronic pain. She has had pain medicine before but without a primary care provider, this is going to be very difficult, so we will see what we can set up for her. Hematology/Oncology has seen her before. 4. She has had a bone marrow biopsy, which was nonspecific. 5. She does have iron deficiency anemia. 6. She also has underlying diabetes mellitus type 2. 7. She has known coronary artery disease. 8. History of hypertension. MEDICATIONS: Currently, she is on 1. Xanax 0.25 mg b.i.d. 2. Polyethylene glycol 17 g daily. 3. She is getting Granix 480 mcg subcutaneous daily. cc: Alex Villa MD
[2018-10-15] MEDS: MIRALAX PO SCH (09:30)
[2018-10-15] MEDS: GRANIX SUBQ SCH (09:30)
[2018-10-15] MEDS: XANAX PO SCH ×2 (09:30→20:53)
[2018-10-15] MEDS: NORCO-7.5 PO PRN ×2 (10:29→18:27)
[2018-10-16] MEDS: NORCO-7.5 PO PRN ×3 (03:21→21:57)
[2018-10-16 06:36] LABS: BASO# 0.01 X1000 (0.0-0.2); BASO% 0.4 % (0.0-0.8); EOS# 0.03 X1000 (0.0-0.7); EOS% 1.1 % (0.0-10.0); HEMATOCRIT 30.9 % (37.0-47.0); HEMOGLOBIN 9.8 g/dL (12.0-16.0); IMM GRAN# 0.02 X1000 (0.0-0.04); IMM GRAN% 0.7 % (0.0-0.5); LYMPH# 0.64 X1000 (1.2-3.4); LYMPH% 23.6 % (20.5-51.1); MCH 25.4 PG (27-31); MCHC 31.7 g/dL (33-37); MCV 80.1 FL (81-99); MONO% 14.8 % (1.7-9.3); MPV 9.4 FL (7.4-10.4); NEUT# 1.61 X1000 (1.4-6.5); NEUT% 59.4 % (42.2-75.2); PLT 169 X1000 (130-400); RBC 3.86 XMIL (4.2-5.4); RDW 16.3 % (11.5-14.5); WBC 2.71 X1000 (4.8-10.8)
[2018-10-16] MEDS: GRANIX SUBQ SCH (09:19)
[2018-10-16] MEDS: MIRALAX PO SCH (09:19)
[2018-10-16] MEDS: XANAX PO SCH ×2 (09:20→21:57)
[2018-10-16] MEDS: VOLTAREN 1% GEL TOP SCH (14:02)
--- NOTE | 2018-10-16 16:15 | PROGRESS NOTE ---
DATE: 10/16/2018 SUBJECTIVE: Ms. Reynaga is feeling better. She has remained afebrile. She is eating pretty good. Her breathing is comfortable. OBJECTIVE: Vital signs: Temp 97.9 degrees, pulse 93, respirations 17, blood pressure 114/68. HEENT: Pupils are equal round. Lungs: Clear in all lung clinton. Cardiovascular: Regular rhythm and rate without murmur or S3. LAB: Today white count 2,710, hematocrit is 30, platelet count is 169,000. Blood sugars 87, 133, 131. ASSESSMENT: 1. Leukopenia and anemia. Still kind of aching and hurting. We will try some Voltaren gel for her. 2. She has no home. We got to find a place for her to go. Her boyfriend there and he needs a place as well. 3. Complained of pain, chronic pain, mainly in her legs and knees. 4. Bone marrow biopsy in the past which was nonspecific. 5. Iron deficiency anemia. 6. Diabetes mellitus type 2. 7. Known coronary artery disease. 8. Hypertension. PLAN: So I think she is okay to go home, but she has no place to go and we are still giving her the Granix 480 mcg subcutaneously daily. Hematology has seen her for leukopenia and neutropenia of unknown reason. So we will see about discharge plans. cc: Alex Villa MD
[2018-10-17] MEDS: VOLTAREN 1% GEL TOP SCH ×2 (02:26→10:26)
[2018-10-17] MEDS: TYLENOL PO PRN (05:01)
[2018-10-17 09:03] VITALS: BP 147/71
[2018-10-17] MEDS: MIRALAX PO SCH (09:23)
[2018-10-17] MEDS: XANAX PO SCH (09:23)
[2018-10-17] MEDS: NORCO-7.5 PO PRN (09:23)
[2018-10-17] MEDS: GRANIX SUBQ SCH (10:26)
--- NOTE | 2018-10-18 04:14 | DISCHARGE SUMMARY ---
DATE: 10/17/2018 Ms. Reynaga presented on 10/11/2018, and she left AMA on 10/17/2018. SUBJECTIVE: This is a 58-year-old who presented to the emergency department with chest pain that started in her right arm and moved to her chest. She had some accompanying nausea and shortness of breath. The patient states about a year ago she had stents placed in her heart in [place]. No follow-up. [place] She has no car, does not go to any of her appointments. She denies any palpitations, syncope or dizziness. PAST MEDICAL HISTORY: 1. Coronary artery disease, status post stents in 2018. 2. Neutropenia, leukopenia. 3. Anemia of chronic disease. 4. Hypertension. 5. Diabetes mellitus type 2. HISTORY: She was admitted. She was found to have leukopenia, neutropenia, and anemia of chronic disease. Looking back in her chart, she had had bone marrow biopsy in the past, which was nonspecific. She never did follow up with Dr. Young. She was then in the hospital back in August of 2018. I put her on isolation and empiric antibiotics. She complained mainly of knee pain and joint pain. Social Service was looking for places for her to go trying to arrange for her to go to some shelters. She did ask for pain medicine, but explained I am not going to be able to give her pain medicine unless she has a primary care doctor following her. We are trying to arrange for her to go home or to go to a half-way. Her boyfriend came and insisted on them going home so they left against medical advice, and left with no prescriptions. No medications. At home, her list at one time she was taking Xanax and hydrocodone. Her cultures have no sign of active infection. Last lab yesterday, white count 2710, hematocrit 30, and platelet count 169,000. Blood sugars stayed between 110 and 130. cc: Alex Villa MD
== END 2018-10-17 13:24 | disposition left against medical advice (07) | DRG 313 ==
LOC: P.ED 09:51 → EDIPHOLD 14:30 → SUATTDRO 14:45 → 3N 14:45
PROVIDERS: ATTEND Emergency Medicine

== ENCOUNTER 2018-11-05 13:06 | Inpatient (IN) ==
[2018-11-05] MEDS ORDERED: NS 1,000 ML IV ONE (13:59)
[2018-11-05] MEDS ORDERED: ASPIRIN PO ONE (13:59)
--- NOTE | 2018-11-05 14:06 | PROVIDER DOCUMENTATION ---
HPI-Chest Pain - General Stated Complaint: cp Time Seen by Provider: 11/05/18 13:53 Source: patient Allergies/Adverse Reactions: Patient Allergies Allergy/AdvReac Type Severity Reaction Status Date / Time Penicillins Allergy Intermediate swelling, Verified 11/05/18 14:30 rash latex Allergy RASH Verified 11/05/18 14:30 Home Medications: Home Medication List Medication Instructions Recorded Confirmed Last Taken Type NK [No Home Medications] 11/05/18 11/05/18 Unknown History - History of Present Illness-CP Nature of Presenting Problem: 58 YOF PRESENTS VIA EMS FOR CP, SHE WAS SEEN LAST NIGHT FOR BILATERAL FOOT PAIN. SHE REPORTS SHE BEGAN HAVING CP AND A CONGESTED COUGH TODAY. SHE IS HOMELESS AND REPORTS SHE FEELS "TOO HOT". SHE DESCRIBES THE PAIN PRESSURE, WITHOUT RADIATION, NAUSEA, SOB, VOMITING, SWEATING. 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 denies: see HPI, chills, fever, fatique, night sweats, weight gain, weight loss, other Eyes: reports: no symptoms reported. denies: see HPI, discharge, dry eyes, decreased vision, blurred vision, double vision, eye pain, redness, other Ears, Nose, Mouth & Throat: reports: no symptoms reported. denies: see HPI, ear discharge, ear pain, hearing loss, tinnitus, epistaxis, sinus problem, nose pain, loose teeth, mouth/dental pain, mouth swelling, hoarseness, throat pain, throat swelling, other Cardiovascular: reports: chest pain. denies: no symptoms reported, see HPI, edema, heart murmur, irregular heart rate, orthopnea, palpitations, poor circulation, PND, syncope, other Respiratory: reports: see HPI, cough. denies: no symptoms reported, chronic cough, dyspnea on exertion, excessive sputum production, hemoptysis, pleurisy, shortness of breath, wheezing, other Gastrointestinal: reports: no symptoms reported. denies: see HPI, abdominal pain, hematemesis, constipation, diarrhea, difficulty swallowing, frequent heartburn, nausea, poor appetite, rectal bleeding, vomiting, other Genitourinary: reports: no symptoms reported. denies: see HPI, dysuria, discharge, frequency, flank pain, frequent UTI's, hematuria, hesitency, incontinence, urinary retention, urgency, other Musculoskeletal: reports: no symptoms reported. denies: see HPI, bone pain, back pain, frequent leg cramps, joint pain, joint swelling, muscle aches, muscle weakness, neck pain, other Integumentary: reports: no symptoms reported. denies: see HPI, hives, hair loss , itching, mole changes, nail changes, rash, skin sores/ulcer, skin thickening, other Neurological: reports: no symptoms reported. denies: see HPI, ataxia, dizziness/vertigo, headache/migraines, loss of balance, numbness, paresthesia, seizure, slurred speech, syncope, tremors, other Psychiatric: reports: no symptoms reported. denies: see HPI, anxiety, anti- depressant use, alcohol/drug dependence, depression, emotional problems, insomnia, panic attacks, suicidal thoughts, other Endocrine: reports: no symptoms reported. denies: see HPI, change in skin pigment, excessive sweating, goiter, cold intolerance, heat intolerance, increased hunger, increased thirst, polyuria, other Hematologic/Lymphatic: reports: no symptoms reported. denies: see HPI, blood clots, easy bruising, low blood count, lymphedema, prolonged bleeding, swollen lymph nodes, transfusions, other Allergic/Immunologic: reports: no symptoms reported. denies: see HPI, allergic reactions, allergic rhinitis, asthma, eczema, food allergy, frequent infections, hay fever, hives, positive PPD, urticaria, other Past History - Adult - PAST MEDICAL HISTORY-ADULT Review of Records: reports: Nursing Assessment Review, Social history reviewed & non-contributory. Major Childhood Illnesses: reports: denies history Cardiovascular: reports: CAD, HTN, hyperlipidemia, MD Respiratory: reports: asthma Gastrointestinal: reports: denies history Obstetrical/Gynecological: reports: denies history Genitourinary: reports: denies history Musculoskeletal: reports: chronic pain, intervertebral disc disease, neck/back injury Neurological: Psychiatric: reports: anxiety, psychiatric problems (panic attacks) Endocrine/Immune: reports: Diabetes Other Conditions: reports: denies history - PRIOR SURGERIES/PROCEDURES Surgical/Procedure History: reports: hysterectomy, BTL, other, cholecystectomy, cardiac stent - PRIOR HOSPITALIZATIONS Prior Hospitalizations: reports: none - IMMUNIZATION STATUS Childhood Immunizations: See Nurse Assessment Flu Vaccine: See Nurse Assessment - FAMILY HISTORY Family History: reviewed, not pertinent Physical Exam-General - PHYSICAL EXAM-ADULT Initial Vital Signs Reviewed: Yes - CONSTITUTIONAL General Appearance: appears well, alert, no apparent distress - EYES Eyes: PERRL/EOMI, pink conjunctivae - HEAD, EARS, NOSE, MOUTH & THROAT HENMT: normocephalic/atraumatic, moist mucous membranes, normal ENT inspection - NECK Neck: non-tender, full range of motion, supple - RESPIRATORY Respiratory: chest non-tender, lungs clear, no respiratory distress, no accessory muscle use, rhonchi - CARDIOVASCULAR Cardiovascular: normal peripheral pulses, regular rate, rhythm, no edema, no gallop, no JVD, no murmur - GASTROINTESTINAL (ABDOMEN) Abdominal Exam: normal bowel sounds, non tender, soft - LYMPHATIC Lymphatic: no adenopathy - MUSCULOSKELETAL Back Exam: normal inspection, no CVA tenderness, no vertebral tenderness Extremity: normal range of motion, non-tender, normal gait - SKIN Integumentary: normal color, normal turgor, warm/dry - NEUROLOGIC Neurologic: grossly normal - PSYCHIATRIC Psych/Mental Status: normal mood/affect, oriented x 3 - HEART Score HEART Score: History: Slightly Suspicious HEART Score: ECG: Normal HEART Score: Age: 45-65 Years HEART Score: Risk Factors for Atherosclerotic Disease: > or = 3 Risk Factors or History of Atherosclerotic Disease HEART Score: Troponin: 1-3x Normal Limit Total HEART Score:: 4 Progress - PLAN OF CARE/RESULTS Progress/Plan/Lab Results: Vital Signs - 8 hr 11/05/18 14:00 Temperature 98.3 F Pulse Rate 93 H Respiratory Rate 19 Blood Pressure 110/59 O2 Sat by Pulse Oximetry 100 Laboratory Results - last 24 hr 11/05/18 11/05/18 11/05/18 13:55 13:55 13:55 WBC 1.37 L RBC 3.26 L Hgb 8.1 L Hct 26.0 L MCV 79.8 L MCH 24.8 L MCHC 31.2 L RDW Std Deviation 16.9 H Plt Count 254 MPV 8.4 Immature Gran % (Auto) 0.0 Neut % (Auto) 8.1 L Lymph % (Auto) 57.7 H Grimes % (Auto) 22.6 H Eos % (Auto) 10.9 H Baso % (Auto) 0.7 Immature Gran # (Auto) 0.00 Neut # (Auto) 0.11 L* Lymph # (Auto) 0.79 L Grimes # (Auto) 0.31 Eos # (Auto) 0.15 Baso # (Auto) 0.01 PT INR PTT (Actin FS) Sodium 133 L Potassium 4.3 Chloride 98 Carbon Dioxide 24 L Anion Gap 11 BUN 30 H Creatinine 1.1 H Estimated GFR/1.73 m2 51 BUN/Creatinine Ratio 27 Glucose 99 Calculated Osmolality 273 Calcium 7.7 L Total Bilirubin 0.35 AST 12 ALT 11 Alkaline Phosphatase 95 Creatine Kinase 37 Troponin T < 0.010 Yia-A-Vkiziagncin Pept Total Protein 6.6 Albumin 3.1 L Globulin 3.5 Albumin/Globulin Ratio 0.9 11/05/18 11/05/18 13:55 13:55 WBC RBC Hgb Hct MCV MCH MCHC RDW Std Deviation Plt Count MPV Immature Gran % (Auto) Neut % (Auto) Lymph % (Auto) Grimes % (Auto) Eos % (Auto) Baso % (Auto) Immature Gran # (Auto) Neut # (Auto) Lymph # (Auto) Grimes # (Auto) Eos # (Auto) Baso # (Auto) PT 13.9 INR 1.06 PTT (Actin FS) 36.0 Sodium Potassium Chloride Carbon Dioxide Anion Gap BUN Creatinine Estimated GFR/1.73 m2 BUN/Creatinine Ratio Glucose Calculated Osmolality Calcium Total Bilirubin AST ALT Alkaline Phosphatase Creatine Kinase Troponin T Dpv-E-Rebyygadvdb Pept 1454 H Total Protein Albumin Globulin Albumin/Globulin Ratio Orders Category Date Time Status Saline Loc NOW Care 11/05/18 13:59 Active cxr [CHEST-2 VIEWS] [RAD] Stat Exams 11/05/18 13:59 Completed BNP [PRO B-NATRIURETIC PEPTIDE] Stat Lab 11/05/18 13:55 Completed CBC WITH ELECTRONIC DIFF [HEME] Stat Lab 11/05/18 13:55 Completed CK PROFILE [SP CHEM] Stat Lab 11/05/18 13:55 Completed COMPREHENSIVE METABOLIC PANEL [CHEM] Stat Lab 11/05/18 13:55 Completed PROTIME WITH INR [COAG] Stat Lab 11/05/18 13:55 Completed PTT [COAG] Stat Lab 11/05/18 13:55 Completed TROPONIN T Stat Lab 11/05/18 13:55 Completed 0.9% Sodium Chloride Inj [Ns] 1,000 ml Med 11/05/18 13:59 Active IV 125 mls/hr Aspirin Med 11/05/18 13:59 Discontinued 325 mg PO NOW ONE DISCUSSED WITH PT HER PREVIOUS ADMISSION WHERE SHE LEFT AMA, SHE REPORTS SHE IS WILLING TO STAY AND COMPLETE EVALUATION HER COUGH AND CHEST PAIN ARE REALLY BOTHERING HER. SHE IS AWARE THAT HER BLOOD COUNTS ARE LOW AND SHE IS VERY HIGH RISK FOR INFECTION Result Diagrams: 11/05/18 13:55 11/05/18 13:55 - EKG 1 Time of EKG reading by physician:: 13:47 EKG Read and Signed by:: Dm Camacho EKG Interpretation (*Must complete 3 of following elements*): Normal Rate: 92 Rhythm: NSR [place]: normal QRS: other (POSSIBLE L ATRIAL ENLARGEMENT) ND Interval: normal ST Wave: normal Prior EKG Comparison: unchanged from prior (10/11 COMPARED, PT IN SAME RYTHM. CHANGES NOTED FROM 10/13 BUT ARE NOT SIGNIFICANT) - CONSULTS/PCP/HOSPITALIST Notification #1 *Consult/PCP/Hospitalist*: [facility] Time Discussed: 15:27 Consult Disposition: Admit (TO DR QUEVEDO) Departure - Departure Date of Disposition Decision: 11/05/18 Time of Disposition Decision: 15:26 DIAGNOSIS: Chest pain, Leukopenia, Cough Disposition: ADMITTED INPATIENT 09 Certified Medical Emergency: Emergent Condition: Stable Referrals and Follow-Ups: Satish Obrien MD [Primary Care Provider] - Discharge Education: Steps to Quit Smoking, [place] - Critical Care Note This patient required my direct & personal management of CC.: No Attestation - Physician/ GRAHAM Attestation Patient care was provided by Advanced Practice Provider:: Yes Advanced Practice Provider:: Pretty Panchal Advanced Practice Provider documentation review:: The Mid-level provider documentation, treatment plan and medical decision making was reviewed by the physician who agrees with all treatment and medical decision making by the MLP. The physician spent face to face time with patient:: No Advanced Practice Provider documentation review:: Supervising physician onsite and consulted in the evaluation and care of this patient. The physician did not have a face to face encounter with the patient.
--- NOTE | 2018-11-05 14:18 | Diag Imaging Result Doc PS360 ---
EXAM: CHEST-2 VIEWS 11/05/2018 HISTORY: CP TECHNIQUE: PA and lateral chest COMMENT: The inspiration is less optimal than on 10/11/2018. Otherwise considering differences in technique there has been no significant change. IMPRESSION: No acute disease. Electronically signed by Jose Lacy 11/05/2018 2:16 PM
[2018-11-05 14:25] LABS: INR 1.06; PROTIME 13.9 Seconds (11.0-16.0)
[2018-11-05 14:43] LABS: POTASSIUM 4.3 mmol/L (3.5-5.1)
[2018-11-05 14:44] LABS: ALB/GLOB RATIO 0.9; ALBUMIN 3.1 g/dL (3.5-5.0); CALCIUM 7.7 mg/dL (8.8-10.2); CREATININE 1.1 mg/dL (0.5-0.9); TOTAL BILIRUBIN 0.35 mg/dL (0.20-1.00); TOTAL PROTEIN 6.6 g/dL (6.3-8.3)
[2018-11-05 14:46] LABS: BASO# 0.01 X1000 (0.0-0.2); BASO% 0.7 % (0.0-0.8); EOS# 0.15 X1000 (0.0-0.7); EOS% 10.9 % (0.0-10.0); HEMOGLOBIN 8.1 g/dL (12.0-16.0); LYMPH# 0.79 X1000 (1.2-3.4); LYMPH% 57.7 % (20.5-51.1); MCH 24.8 PG (27-31); MCHC 31.2 g/dL (33-37); MCV 79.8 FL (81-99); MONO# 0.31 X1000 (0.11-0.59); MONO% 22.6 % (1.7-9.3); MPV 8.4 FL (7.4-10.4); NEUT% 8.1 % (42.2-75.2); PLT 254 X1000 (130-400); RBC 3.26 XMIL (4.2-5.4); RDW 16.9 % (11.5-14.5); WBC 1.37 X1000 (4.8-10.8)
[2018-11-05 14:50] LABS: NEUT# 0.11 X1000 (1.4-6.5)
[2018-11-05] MEDS ORDERED: VANCOMYCIN 1 GM/NS 1 GM/250 ML IVPB IV ONE (15:25)
[2018-11-05] MEDS ORDERED: ZITHROMAX 500 MG/NS 500 MG/250 ML IVPB IV ONE (15:25)
[2018-11-05] MEDS: GRANIX SUBQ SCH (17:09)
[2018-11-05] MEDS ORDERED: ZOFRAN IV PRN (17:43)
--- NOTE | 2018-11-05 18:06 | EKG Report ---
Test Performed on : 11/05/2018 1:42:59 PM Test Reason : nutropenic Blood Pressure : / mmHG Vent. Rate : 092 BPM Atrial Rate : 092 BPM P-R Int : 140 ms QRS Dur : 088 ms QT Int : 346 ms P-R-T Axes : 053 000 079 degrees QTc Int : 427 ms Normal sinus rhythm. Possible Left atrial enlargement Borderline ECG When compared with ECG of 12-OCT-2018 06:41, No significant change was found Unconfirmed Result
--- NOTE | 2018-11-05 19:55 | HISTORY AND PHYSICAL ---
CHIEF COMPLAINT: "Living on the streets. I get too hot and my stents hurt." HISTORY OF PRESENT ILLNESS: Ms. Reynaga is a 58-year-old female, well known to our service for multiple admissions for leukopenia and neutropenia and leaves AMA. She returned back to the ED today as well as several previous ER visits this month stating that she is out on the streets. She gets too hot and her stents start hurting. She is currently not complaining of any chest pain. She actually states that she is now too cold. Workup in the ED revealed neutropenia, leukopenia, anemia, mild hyponatremia and acute kidney injury. She will be admitted to a private room. We will place her on neutropenic precautions. Dr. Young is aware that the patient has been admitted. He requested us Granix. She was given a dose of vancomycin and azithromycin. She does not report any fever, chills, nausea, vomiting, diarrhea, or headache. She did complain of being nauseated at some point, but now her main complaint is being cold. REVIEW OF SYSTEMS: Twelve-point review of systems completely negative except for those mentioned in HPI. PAST MEDICAL HISTORY: 1. Coronary artery disease. 2. Hypertension. 3. Hyperlipidemia. 4. History of IN. 5. Chronic osteoarthritis. 6. Diabetes mellitus. 7. History of chronic neck and back pain. PAST SURGICAL HISTORY: 1. Hysterectomy. 2. Recent bone marrow biopsy. SOCIAL HISTORY: She lives on the streets. She is a smoker. Denies any alcohol or illicit drug use. FAMILY HISTORY: Unknown. She is adopted. ALLERGIES: Penicillin and latex. HOME MEDICATIONS: None. PHYSICAL EXAMINATION: VITAL SIGNS: Temperature is 98.3 degrees, heart rate 93, respirations 19, blood pressure 110/59, O2 is 100% on room air. GENERAL: Ms. Reynaga is a 58-year-old female who is lying on her right side, complaining of being cold in the ED. She is in no acute distress. HEENT: Atraumatic, normocephalic. [place]. NECK: Is supple. Trachea midline. Mucous membranes are dry. CARDIOVASCULAR: S1, S2 appreciated. No murmurs, gallops, or rubs noted. RESPIRATORY: Lung sounds clear bilaterally. GI: Was soft, nontender, nondistended. Positive bowel sounds 4 quadrants. EXTREMITIES: Lower extremities were negative for edema. Bilateral pedal pulses are palpable. SKIN: Appears to be warm, dry, and intact. NEUROLOGIC: Could not appreciate any focal deficits. DIAGNOSTIC DATA: Chest x-ray: No acute disease. LABORATORY DATA: White count 1, hemoglobin and hematocrit 8 and 26, platelet count is 254,000. Sodium 133, potassium 4.3, BUN 30, creatinine 1.1 blood glucose is 99. Troponin was less than 0.010. ProBNP 1454. Albumin 3.1. ASSESSMENT AND PLAN: 1. Leukopenia, neutropenia and anemia. The patient will be placed on neutropenic precautions, put in reverse isolation. Neutropenic diet. Initiated on Granix. She was given a dose of vancomycin and azithromycin in the Emergency Department. We will obtain a blood culture, sputum culture, urine culture, HIV screen, and continue to follow Dr. Young's recommendations. 2. Coronary artery disease. Patient states that she could feel her stents hurting when she was hot. However, she does not complain of any chest pain. First set of cardiac enzymes are negative. We will continue to trend 2 more sets. 3. Hypertension. The patient is not on any home medications. We will continue to monitor. 4. Hyperlipidemia. 5. Chronic pain. 6. Osteoarthritis. 7. Diabetes mellitus, not on any home medications. 8. Chronic neck and back pain. 9. Further recommendations to follow physician evaluation, laboratory and diagnostic data. Dictated by NABOR Diaz for Kurt Morris MD cc: MD Edgardo Herrera MD
[2018-11-05] MEDS: HUMULIN R SUBQ SCH (21:00)
[2018-11-05] MEDS: TYLENOL PO PRN (23:24)
[2018-11-06] MEDS ORDERED: ULTRAM PO ONE (04:04)
[2018-11-06] MEDS: HUMULIN R SUBQ SCH ×4 (06:15→20:52)
[2018-11-06 06:24] LABS: AGAP 13; ALB/GLOB RATIO 0.6; ALBUMIN 2.7 g/dL (3.5-5.0); ALKALINE PHOSPHATASE 89 U/L (32-104); BUN 21 mg/dL (8-22); CALCIUM 7.9 mg/dL (8.8-10.2); CHLORIDE 102 mmol/L (98-107); COSMO 272; CREATININE 0.8 mg/dL (0.5-0.9); ESTIMATED GFR > 60; GLUCOSE 72 mg/dL (70-104); GOT 13 U/L (10-30); GPT 9 U/L (10-36); MAGNESIUM 1.7 mg/dL (1.5-2.7); POTASSIUM 4.1 mmol/L (3.5-5.1); SODIUM 135 mmol/L (136-145); TCO2 20 mmol/L (25-35); TOTAL BILIRUBIN 0.47 mg/dL (0.20-1.00); TOTAL PROTEIN 7.1 g/dL (6.3-8.3)
[2018-11-06 06:38] LABS: BASO# 0.01 X1000 (0.0-0.2); BASO% 0.6 % (0.0-0.8); EOS# 0.07 X1000 (0.0-0.7); EOS% 4.5 % (0.0-10.0); HEMATOCRIT 29.8 % (37.0-47.0); HEMOGLOBIN 9.3 g/dL (12.0-16.0); LYMPH# 0.55 X1000 (1.2-3.4); LYMPH% 35.7 % (20.5-51.1); MCH 25.4 PG (27-31); MCHC 31.2 g/dL (33-37); MCV 81.4 FL (81-99); MONO# 0.26 X1000 (0.11-0.59); MONO% 16.9 % (1.7-9.3); MPV 8.7 FL (7.4-10.4); NEUT# 0.65 X1000 (1.4-6.5); NEUT% 42.3 % (42.2-75.2); PLT 208 X1000 (130-400); RBC 3.66 XMIL (4.2-5.4); RDW 17.4 % (11.5-14.5); WBC 1.54 X1000 (4.8-10.8)
--- NOTE | 2018-11-06 07:33 | Diag Imaging Result Doc PS360 ---
EXAM: CHEST-PORTABLE INDICATION: ? PNA TECHNIQUE: One view COMPARISON: 11/05/2018 FINDINGS: The lungs remain grossly clear. There is no discrete pleural fluid collection or pneumothorax. The cardiomediastinal silhouette and central vasculature are grossly unremarkable. IMPRESSION: No evidence of acute pathology by plain radiograph. Electronically signed by Duncan Taveras 11/06/2018 7:31 AM
[2018-11-06] MEDS: TYLENOL PO PRN ×3 (08:22→18:31)
[2018-11-06 09:19] LABS: HIV ANTIBODY SCREEN SEE COMMENTS
[2018-11-06] MEDS: GRANIX SUBQ SCH (09:28)
--- NOTE | 2018-11-06 09:55 | PROGRESS NOTE ---
DATE: 11/06/2018 SUBJECTIVE: The patient is sitting at the bedside. She is complaining of generalized pain, which is chronic. Her WBC improved a little bit compared with yesterday as well as her hemoglobin. Her neutrophil count improved from 0.11 to 0.65. Creatinine also improved from 1.1 to 0.8, but I do believe she was a little bit dehydrated. Pending hematology/oncology evaluation and recommendations. OBJECTIVE: Vital Signs: Temperature 98.6 degrees, pulse 82, respiratory rate 17, blood pressure 133/77, oxygen saturation 98 on room air. HEENT: Head normocephalic. No trauma. PERRLA. Neck: Supple. No JVD. No masses. Central trachea. Chest: Clear to auscultation. No wheezing. No rales. Abdomen: Soft, nontender, nondistended. No hepatosplenomegaly. Extremities: Negative for edema. Bilateral pedal pulses. Neurological: The patient is alert. He is oriented. She is oriented. She is following commands. She does have generalized weakness and pain. LABORATORY: WBC 1.5, hemoglobin 9.3, hematocrit 29.8, platelets 208,000. Sodium 135, potassium 4.1, chloride 102, bicarbonate 20, BUN 21, creatinine 0.8, glucose 72, calcium 7.9, AST 13, ALT 9, alkaline phosphatase 89, albumin 2.7. ASSESSMENT AND PLAN: 1. Neutropenia and anemia, seems to be a little bit better compared with yesterday. We will continue with Granix, neutropenic diet and isolation. I have requested an evaluation by Dr. Young. Will wait for recommendations. 2. History of coronary artery disease, she is not complaining of chest pain but generalized pain today. 3. Hypertension stable. 4. Chronic pain. Aware. For now, we will continue with Tylenol. I do not have any medications listed that she was taking at home. 5. Diabetes. Actually, her blood sugar has been stable yesterday 99 and today 72. I will monitor this closely and I will ask for a hemoglobin A1c. 6. Acute kidney injury resolved. 7. History of chronic neck and back pain, aware. cc: Kurt Morris MD
[2018-11-07] MEDS: TYLENOL PO PRN ×4 (00:39→20:58)
[2018-11-07 05:37] LABS: BASO# 0.01 X1000 (0.0-0.2); BASO% 0.5 % (0.0-0.8); EOS# 0.03 X1000 (0.0-0.7); EOS% 1.4 % (0.0-10.0); HEMATOCRIT 28.9 % (37.0-47.0); HEMOGLOBIN 9.1 g/dL (12.0-16.0); IMM GRAN# 0.02 X1000 (0.0-0.04); IMM GRAN% 0.9 % (0.0-0.5); LYMPH# 0.46 X1000 (1.2-3.4); MCH 25.5 PG (27-31); MCHC 31.5 g/dL (33-37); MONO# 0.23 X1000 (0.11-0.59); MONO% 10.5 % (1.7-9.3); MPV 8.9 FL (7.4-10.4); NEUT# 1.44 X1000 (1.4-6.5); NEUT% 65.7 % (42.2-75.2); PLT 196 X1000 (130-400); RBC 3.57 XMIL (4.2-5.4); RDW 17.3 % (11.5-14.5); WBC 2.19 X1000 (4.8-10.8)
[2018-11-07] MEDS: HUMULIN R SUBQ SCH ×4 (06:25→20:58)
[2018-11-07 07:39] LABS: HEMOGLOBIN A1C 4.7 % (4.8-6.0)
--- NOTE | 2018-11-07 09:16 | PROGRESS NOTE ---
DATE: 11/07/2018 SUBJECTIVE: This patient is resting comfortably in bed. She is still complaining of generalized pain, but no big changes compared with yesterday. Her neutrophil count has been improving and actually today is 1.44, upon admission was 0.1. Also, her white blood cell count is going down from 1.37 upon admission to 2.1. At this moment, I will follow the recommendations of Hematology Oncology Department. OBJECTIVE: Vital signs: Temperature 97.7 degrees, pulse 93, respiratory rate 17, blood pressure 135/99, oxygen saturation 100% on room air. HEENT: Head normocephalic. No trauma. PERRLA. Neck: Is supple. No JVD. No masses. Central trachea. Chest: Clear to auscultation. No wheezing. No rales. Abdomen: Soft, nontender, nondistended. No hepatosplenomegaly. Extremities: Negative for edema. Neurological examination: Patient is alert, she is oriented. She is following commands. She is sleepy, but arousable at this moment. LABORATORY: WBC 2.1, hemoglobin 9.1, hematocrit 28.9, platelets 196,000. Hemoglobin A1c 4.7. ASSESSMENT AND PLAN: 1. Neutropenia and anemia. This seems to be getting better compared with admission. We have requested an evaluation by Hematology Oncology Department. I will wait for final recommendations. 2. History of coronary artery disease. She is not complaining of chest pain, but she has been complaining of generalized pain, which is chronic. 3. Hypertension, stable. 4. Chronic pain. Aware. For now, we will continue with Tylenol. I will avoid narcotics. 5. Diabetes. Actually her hemoglobin A1c is 4.7. I do not believe this patient has diabetes since she has not been taking any kind of treatment at home. 6. Acute kidney injury, resolved. 7. History of neck and back pain, aware. cc: Kurt Morris MD
[2018-11-07] MEDS: GRANIX SUBQ SCH (09:24)
[2018-11-07] MEDS: MIRALAX PO SCH (18:11)
--- NOTE | 2018-11-07 22:10 | HEMO/ONC CONSULTATION ---
DATE: 11/06/2018 We appreciate this consult. CHIEF COMPLAINT: Neutropenia. HISTORY OF PRESENT ILLNESS: Ms. Reynaga is a 58-year-old female well known to Dr. Young secondary to multiple hospital admissions with leukopenia and neutropenia. The patient has been seen in consult 3 times within the last 4 months. She has failed to follow up in clinic. The patient presented to [facility] Emergency Department this admission reporting that as she is homeless she is getting too hot out on the streets and her cardiac stents are hurting. The patient denies chest pain. Repeat workup in emergency department reveals known neutropenia and leukopenia as well as anemia. Extensive workup has been obtained. The patient underwent bone marrow biopsy which was negative. The patient has been on Granix repeatedly as an inpatient, but again has failed to follow up in clinic for further workup. The patient is currently lying supine in bed in no immediate distress. PAST MEDICAL HISTORY: 1. Coronary artery disease. 2. Hypertension. 3. Hyperlipidemia. 4. Myocardial infarction. 5. Chronic osteoarthritis. 6. Diabetes mellitus type 2. 7. Chronic neck and back pain. PAST SURGICAL HISTORY: Hysterectomy. SOCIAL HISTORY: The patient is homeless. She does smoke cigarettes. She reports that she does not use alcohol or illicit drugs. FAMILY HISTORY: Unknown as the patient is adopted. MEDICATIONS ON ADMISSION: None. ALLERGIES: Penicillin and latex. REVIEW OF SYSTEMS: The complete review of systems is negative except for mentioned in HPI. PHYSICAL EXAMINATION: Ms. Reynaga is a 58-year-old female lying supine in bed in no immediate distress.Vital Signs: Temperature 98.6, blood pressure 133/77, heart rate 82, respirations 17, O2 saturation is 98% on room air. HEENT: Normocephalic, atraumatic. Mucous membranes are pale and moist. Sclerae is anicteric. Extraocular movements intact. Neck: Supple. Lungs: Clear to auscultation bilaterally. Chest expansion equal bilaterally. CV: S1, S2 is heard without murmur, rub or gallop. Abdomen: Not distended. Extremities: No clubbing, cyanosis, or edema. Dermatologic: No rashes, bruises or lesions. Neurologic: The patient is awake, alert, and oriented x3. She has no focal deficits. LABORATORY DATA: Hemoglobin 9.3, hematocrit 29.8, white blood cell count 1.54, platelet count 208,000. ANC is 0.65. Sodium 135, potassium 4.1, chloride 102, CO2 is 20, BUN 21, creatinine 0.8, glucose 72, calcium is 7.9, magnesium 1.7. IMAGING STUDIES: Chest x-ray reveals no acute abnormality. ASSESSMENT AND PLAN: 1. Pancytopenia. Bone marrow on 09/07/2018 was unremarkable. The patient does remain neutropenic at this time. Would continue on Granix daily as prescribed with reverse isolation. 2. Coronary artery disease with stents, stable. 3. Hypertension. Stable at this time. 4. Hyperlipidemia. Known. 5. Chronic pain per hospitalist. 6. We will follow along with you and make further recommendations pending outcomes. The above reflects the history, exam, assessment and plan of Dr. Young. Dictated by NABOR Camacho for Edgardo Young MD cc: NABOR Camacho MD
[2018-11-08] MEDS: TYLENOL PO PRN (02:51)
[2018-11-08 05:23] LABS: BASO# 0.01 X1000 (0.0-0.2); BASO% 0.3 % (0.0-0.8); EOS# 0.08 X1000 (0.0-0.7); EOS% 2.1 % (0.0-10.0); HEMATOCRIT 29.1 % (37.0-47.0); HEMOGLOBIN 9.1 g/dL (12.0-16.0); LYMPH# 0.72 X1000 (1.2-3.4); LYMPH% 19.3 % (20.5-51.1); MCH 25.1 PG (27-31); MCHC 31.3 g/dL (33-37); MCV 80.2 FL (81-99); MONO# 0.26 X1000 (0.11-0.59); MPV 8.7 FL (7.4-10.4); NEUT# 2.66 X1000 (1.4-6.5); NEUT% 71.3 % (42.2-75.2); PLT 222 X1000 (130-400); RBC 3.63 XMIL (4.2-5.4); RDW 17.5 % (11.5-14.5); WBC 3.73 X1000 (4.8-10.8)
[2018-11-08] MEDS: HUMULIN R SUBQ SCH (06:02)
[2018-11-08 08:22] VITALS: BP 136/79
[2018-11-08] MEDS: MIRALAX PO SCH (09:02)
[2018-11-08] MEDS: GRANIX SUBQ SCH (09:02)
--- NOTE | 2018-11-09 06:03 | DISCHARGE SUMMARY ---
ADMISSION DATE: 11/05/2018 DISCHARGE DATE: 11/08/2018 DISCHARGE DIAGNOSES: 1. Neutropenia and anemia, improving on a daily basis, ANC greater than 1.2. She does not need isolation at this moment. Case discussed with Hematology/Oncology Department yesterday Dr. Young-She will need to follow up with him as an outpatient. 2. History of coronary artery disease. 3. Hypertension. 4. Chronic pain. 5. Remote history of diabetes with no treatment, and with hemoglobin A1c around 4.7. 6. Acute kidney injury resolved. 7. History of neck and back pain. CONSULTATIONS: Hematology/Oncology Department Dr. Young. PROCEDURES PERFORMED: Chest x-ray dated 11/05/2018. Impression: No acute disease. Chest x-ray dated 11/08/2018. Impression: No evidence of acute pathology by plain x-ray. HOSPITAL COURSE: A 58-year-old female that has been admitted multiple times for leukopenia and neutropenia, and she leaves AMA most of the time. She returned back today to the ED and she was admitted on 11/05/2018. She was complaining of some kind of chest discomfort. She states that she gets too hot, and her stents start hurting. At the moment of the physical exam, she was not complaining of any chest pain. On the other hand, she was complaining now of being too cold. Workup in the emergency department revealed neutropenia, leukopenia, anemia, and mild hyponatremia with acute kidney injury. She was placed on a diet. She received some fluid, and we started this patient on Granix. The neutropenia was improving on a daily basis. Case has been discussed with Dr. Young, since her ANC was greater than 1.2, we stopped the isolation, and actually this patient can be discharged. We do believe that she is doing something on the streets that could be related to alcohol and/or some kind of drugs that decreased the neutrophil count. She had a bone marrow done before on 09/07/2018 that was actually unremarkable. Dr. Young wants to follow this patient in 2 to 3 weeks as an outpatient. I discussed the case with the patient, and she seems to understand but she is not quite sure if she can go to the appointment. PHYSICAL EXAMINATION: Vital Signs: Temperature 98.1 degrees, pulse 117, respiratory rate 16, blood pressure 136/79, and oxygen saturation 99 percent on room air. HEENT: Head normocephalic. No trauma. PERRLA. Neck: Supple. No JVD. No masses. Central trachea. Chest: Clear to auscultation. No wheezing. No rales. Abdomen: Soft, nontender, and nondistended. No hepatosplenomegaly. Extremities: Negative for edema. Neurological: This patient is alert. She is oriented. She is following commands. LABORATORY: WBC 3.7, hemoglobin 9.1, hematocrit 29.1, and platelets 222,000. Glucose 84. DISCHARGE MEDICATIONS: 1. Acetaminophen 650 mg p.o. q.6 hours. 2. MiraLAX 17 g p.o. daily. FOLLOW UP: Dr. Young in 2 to 3 weeks. We will try to set up an appointment for her. Community Chest Officer on board. cc: Kurt Morris MD
== END 2018-11-08 09:54 | disposition home or self-care (01) | DRG 809 ==
LOC: SUPCPDRO → ED 13:06 → EDIPHOLD 17:05 → 1N 17:23
PROVIDERS: ATTEND Internal Medicine

== ENCOUNTER 2019-04-02 12:50 | Observation (INO) ==
[2019-04-02] MEDS ORDERED: NS 1,000 ML IV PRN ×2 (13:08→13:37)
--- NOTE | 2019-04-02 13:55 | Diag Imaging Result Doc PS360 ---
EXAM: CHEST-PORTABLE 04/02/2019 HISTORY: stroke like symptoms TECHNIQUE: AP portable at 1346 COMMENT: There is severe arthritic change in the shoulders including the acromioclavicular joints with cysts in both humeral heads. There is no evidence of acute cardiac or pulmonary disease. Compared to 02/09/2019 the appearance the chest has not changed significantly. IMPRESSION: No evidence of acute disease. Electronically signed by Jose Lacy 04/02/2019 1:52 PM
[2019-04-02 14:18] LABS: BASO# 0.01 X1000 (0.0-0.2); BASO% 0.6 % (0.0-0.8); EOS% 5.6 % (0.0-10.0); HEMATOCRIT 30.9 % (37.0-47.0); HEMOGLOBIN 9.5 g/dL (12.0-16.0); LYMPH# 0.44 X1000 (1.2-3.4); LYMPH% 24.9 % (20.5-51.1); MCH 26.2 PG (27-31); MCHC 30.7 g/dL (33-37); MCV 85.1 FL (81-99); MONO# 0.17 X1000 (0.11-0.59); MONO% 9.6 % (1.7-9.3); MPV 8.2 FL (7.4-10.4); NEUT# 1.05 X1000 (1.4-6.5); NEUT% 59.3 % (42.2-75.2); PLT 257 X1000 (130-400); RBC 3.63 XMIL (4.2-5.4); RDW 14.5 % (11.5-14.5); WBC 1.77 X1000 (4.8-10.8)
[2019-04-02 14:22] LABS: INR 0.93; PROTIME 12.5 Seconds (11.0-16.0)
[2019-04-02 14:23] LABS: PTT 41.3 Seconds (22.3-41.8)
[2019-04-02 14:40] LABS: URINE SOURCE CATH
[2019-04-02 14:49] LABS: BILIRUBIN URINE NEGATIVE (NEGATIVE); BLOOD URINE NEGATIVE (NEGATIVE); COLOR YELLOW; GLUCOSE URINE NEGATIVE (NEGATIVE); KETONE URINE NEGATIVE (NEGATIVE); LEUKOCYTES URINE NEGATIVE (NEGATIVE); NITRITE URINE NEGATIVE (NEGATIVE); PH URINE 6.5; PROTEIN URINE TRACE mg/dL (NEGATIVE); SP GRAVITY URINE 1.018; TURBIDITY URINE CLEAR (CLEAR); UROBILINOGEN URINE NORMAL (NORMAL)
[2019-04-02 14:50] LABS: UR EPITHELIAL CELLS >10 /HPF (<10); URINE BACTERIA 1+ /HPF; URINE RBC <10 /HPF (<10); URINE WBC <10 /HPF (<10)
--- NOTE | 2019-04-02 14:51 | EKG Report ---
Test Performed on : 04/02/2019 12:58:15 PM Test Reason : Stroke like symptoms Blood Pressure : / mmHG Vent. Rate : 115 BPM Atrial Rate : 075 BPM P-R Int : 150 ms QRS Dur : 094 ms QT Int : 388 ms P-R-T Axes : -09 -13 079 degrees QTc Int : 536 ms Sinus rhythm. with frequent premature ventricular complexes. Prolonged QT Abnormal ECG When compared with ECG of 09-FEB-2019 11:20, (Unconfirmed) Previous ECG has undetermined rhythm, needs review QRS duration has decreased ST no longer depressed in Lateral leads Unconfirmed Result
--- NOTE | 2019-04-02 14:56 | Diag Imaging Result Doc PS360 ---
EXAM: CT HEAD W/O CONTRAST 04/02/2019 HISTORY: stroke like symptoms TECHNIQUE: This exam was performed using automated exposure control, adjustment of mA or kV according to patient size, and/or use of iterative reconstruction technique. COMMENT: There is no evidence of mass effect, bleed, or abnormal extra-axial fluid collection. Compared to 09/01/2015 there has been no significant change in the appearance of the brain. The calvarium is intact. The visualized paranasal sinuses are clear. IMPRESSION: No evidence of acute intracranial disease. Electronically signed by Jose Lacy 04/02/2019 2:54 PM
[2019-04-02 15:05] LABS: UR AMPHETAMINES QUAL NONE DETECTED (NONE DETECT); UR BARBITUATES QUAL NONE DETECTED (NONE DETECT); UR BENZODIAZEPIN QUAL NONE DETECTED (NONE DETECT); UR CANNABINOIDS QUAL NONE DETECTED (NONE DETECT); UR COCAINE QUAL NONE DETECTED (NONE DETECT); UR METHADONE QUAL NONE DETECTED (NONE DETECT); UR OPIATES QUAL NONE DETECTED (NONE DETECT); UR OXYCODONE QUAL NONE DETECTED (NONE DETECT); UR PCP QUAL NONE DETECTED (NONE DETECT)
[2019-04-02 15:06] LABS: AGAP 16; ALB/GLOB RATIO 0.8; ALBUMIN 3.3 g/dL (3.5-5.0); ALKALINE PHOSPHATASE 121 U/L (32-104); BUN 19 mg/dL (8-22); CALCIUM 9.3 mg/dL (8.8-10.2); CHLORIDE 99 mmol/L (98-107); COSMO 275; CREATININE 0.9 mg/dL (0.5-0.9); ESTIMATED GFR > 60; GLUCOSE 87 mg/dL (70-104); GOT 10 U/L (10-30); GPT 5 U/L (10-36); POTASSIUM 5.1 mmol/L (3.5-5.1); SODIUM 137 mmol/L (136-145); TCO2 22 mmol/L (25-35); TOTAL BILIRUBIN 0.39 mg/dL (0.20-1.00); TOTAL PROTEIN 7.7 g/dL (6.3-8.3)
[2019-04-02] MEDS ORDERED: ASPIRIN PO ONE (15:26)
--- NOTE | 2019-04-02 15:28 | PROVIDER DOCUMENTATION ---
This chart was entered by Faye Murdock Scribe, acting as scribe for Joel Singer MD. HPI-Neurological Disorder - General Chief Complaint: Stroke-Like Symptoms Stated Complaint: right arm/face numbness Time Seen by Provider: 04/02/19 13:07 Source: patient Allergies/Adverse Reactions: Patient Allergies Allergy/AdvReac Type Severity Reaction Status Date / Time Penicillins Allergy Intermediate swelling, Verified 04/02/19 13:36 rash latex Allergy RASH Verified 04/02/19 13:36 Home Medications: Home Medication List Medication Instructions Recorded Confirmed Last Taken Type Aspirin EC 81 mg PO DAILY #30 tab 12/24/18 01/19/19 Unknown Rx Meloxicam [Mobic] 15 mg PO DAILY #20 tab 12/29/18 01/19/19 Unknown Rx Albuterol Sulfate [Albuterol 18 gm INHALATION Q4-6H PRN PRN #1 01/07/19 01/19/19 Unknown Rx Sulfate Hfa] hfa.aer.ad Naproxen 500 mg PO BID PRN PRN #10 tablet.dr 01/07/19 01/19/19 Unknown Rx Ibuprofen [Motrin] 800 mg PO Q8H PRN PRN #20 tab 01/19/19 Unknown Rx Methocarbamol [Robaxin] 500 mg PO Q6H PRN #15 tab 01/21/19 Unknown Rx Ibuprofen 600 mg PO Q8H PRN PRN #30 tab 02/09/19 Unknown Rx - History of Present Illness-Neuro Nature of Presenting Problem: 58 yof presents to the ed with c/o acute onset rt facial numbness and chest pressure while eating breakfast this am. pt sts sx have improved since onset but still has mild rt facial numbness. pt is nontoxic in appearance on exam Severity: reports: mild Onset/Duration: reports: this morning Timing: reports: improving Context: reports: other (rt facial numbness) Character of Altered Mental Status: reports: N/A Any recent trauma/injury?: reports: none Character of Deficits: reports: altered sensation New weakness or altered sensation location:: reports: right facial Cognitive Baseline: alert, oriented x3 Gait Baseline: walks without assistance Associated Symptoms: reports: chest pain. denies: short of breath, headache, d ecreased ability to walk or stand, dizziness, nausea, numbness in legs/feet, slurred speech, vomiting, vision changes Similar Symptoms Previously?: No Recently seen or treated by another doctor?: No Review of Systems - Adult - REVIEW OF SYSTEMS - ADULT Constitutional: denies: chills, fever Eyes: reports: no symptoms reported Ears, Nose, Mouth & Throat: reports: no symptoms reported Cardiovascular: reports: see HPI, chest pain. denies: edema, palpitations Respiratory: denies: cough, shortness of breath, wheezing Gastrointestinal: denies: abdominal pain, diarrhea, nausea, vomiting Genitourinary: reports: no symptoms reported Musculoskeletal: denies: back pain, neck pain Integumentary: reports: no symptoms reported Neurological: reports: see HPI, numbness (rt face). denies: dizziness/vertigo, headache/migraines, slurred speech Psychiatric: reports: no symptoms reported Endocrine: reports: no symptoms reported Hematologic/Lymphatic: reports: no symptoms reported Allergic/Immunologic: reports: no symptoms reported All Other Systems: Reviewed and Negative Past History - Adult - PAST MEDICAL HISTORY-ADULT Review of Records: reports: Old Records Reviewed, Nursing Assessment Review, Medications Reviewed, Social history reviewed & non-contributory. Major Childhood Illnesses: reports: denies history Cardiovascular: reports: CAD, HTN, hyperlipidemia, [place] Respiratory: reports: asthma Gastrointestinal: reports: denies history Obstetrical/Gynecological: reports: denies history Genitourinary: reports: denies history Musculoskeletal: reports: arthritis, chronic pain, intervertebral disc disease, neck/back injury Neurological: Psychiatric: reports: anxiety, psychiatric problems (panic attacks) Endocrine/Immune: reports: Diabetes Other Conditions: reports: denies history - PRIOR SURGERIES/PROCEDURES Surgical/Procedure History: reports: hysterectomy, BTL, other, cholecystectomy, cardiac stent - PRIOR HOSPITALIZATIONS Prior Hospitalizations: reports: none - IMMUNIZATION STATUS Childhood Immunizations: See Nurse Assessment Flu Vaccine: See Nurse Assessment - FAMILY HISTORY Family History: reviewed, not pertinent Physical Exam- Neurological - Physical Exam-Neuro Initial Vital Signs Reviewed: Yes General Appearance: appears well, alert, no apparent distress (sx have improved but mild rt sided facial numbness is still present) Eye Exam: bilateral eye: normal inspection, PERRL, EOMI HENMT: moist mucous membranes Head Injury: no evidence of injury Neck: non-tender, full range of motion, supple, normal inspection Respiratory: chest non-tender, lungs clear, normal breath sounds Cardiovascular: normal peripheral pulses, regular rate, rhythm Abdominal Exam: normal bowel sounds, non tender, soft Lymphatic: no adenopathy Extremity: normal range of motion, non-tender, normal gait, normal inspection fitness trainer Exam: normal hearing, normal speech, PERRL Coordination/Gait: normal finger to nose Motor/Sensory: no motor deficit, no pronator drift Neurologic: sensory deficit (rt face) Integumentary: normal color, normal turgor, warm/dry Psych/Mental Status: normal mood/affect, normal thought content, normal thought process, oriented x 3 - Glascow Coma Scale Best Eye Response: (4) open spontaneously Best Verbal Response: (5) oriented Best Motor Response: (6) obeys commands Total Glascow Score: 15 Progress - PLAN OF CARE/RESULTS Progress/Plan/Lab Results: Vital Signs - 8 hr 04/02/19 13:06 Temperature 97.5 F L Pulse Rate 87 Respiratory Rate 18 Blood Pressure 121/74 O2 Sat by Pulse Oximetry 96 Laboratory Results - last 24 hr 04/02/19 04/02/19 04/02/19 14:03 14:03 14:03 WBC 1.77 L RBC 3.63 L Hgb 9.5 L Hct 30.9 L MCV 85.1 MCH 26.2 L MCHC 30.7 L RDW Std Deviation 14.5 Plt Count 257 MPV 8.2 Immature Gran % (Auto) 0.0 Neut % (Auto) 59.3 Lymph % (Auto) 24.9 [place] % (Auto) 9.6 H Eos % (Auto) 5.6 Baso % (Auto) 0.6 Immature Gran # (Auto) 0.00 Neut # (Auto) 1.05 L Lymph # (Auto) 0.44 L [place] # (Auto) 0.17 Eos # (Auto) 0.10 Baso # (Auto) 0.01 PT 12.5 INR 0.93 PTT (Actin FS) 41.3 Sodium 137 Potassium 5.1 Chloride 99 Carbon Dioxide 22 L Anion Gap 16 BUN 19 Creatinine 0.9 Estimated GFR/1.73 m2 > 60 BUN/Creatinine Ratio 21 Glucose 87 Calculated Osmolality 275 Calcium 9.3 Total Bilirubin 0.39 AST 10 ALT 5 L Alkaline Phosphatase 121 H Troponin T High Sens Total Protein 7.7 Albumin 3.3 L Globulin 4.4 Albumin/Globulin Ratio 0.8 Urine Source Urine Color Urine Turbidity Urine pH Ur Specific [place] Urine Protein Ur Glucose (Stick) Ur Ketones (Stick) Urine Blood Urine Nitrite Urine Bilirubin Urobilinogen Dipstick Urine Leukocytes Urine WBC (Auto) Urine RBC (Auto) U Epithel Cells (Auto) Urine Bacteria (Auto) Urine Opiates Screen Ur Oxycodone Screen Ur Methadone, Qual Ur Barbiturates Screen Ur Phencyclidine Scrn Ur Amphetamines Screen U Benzodiazepines Scrn Urine Cocaine Screen U Cannabinoids Screen 04/02/19 04/02/19 04/02/19 14:03 14:33 14:33 WBC RBC Hgb Hct MCV MCH MCHC RDW Std Deviation Plt Count MPV Immature Gran % (Auto) Neut % (Auto) Lymph % (Auto) [place] % (Auto) Eos % (Auto) Baso % (Auto) Immature Gran # (Auto) Neut # (Auto) Lymph # (Auto) [place] # (Auto) Eos # (Auto) Baso # (Auto) PT INR PTT (Actin FS) Sodium Potassium Chloride Carbon Dioxide Anion Gap BUN Creatinine Estimated GFR/1.73 m2 BUN/Creatinine Ratio Glucose Calculated Osmolality Calcium Total Bilirubin AST ALT Alkaline Phosphatase Troponin T High Sens 10 Total Protein Albumin Globulin Albumin/Globulin Ratio Urine Source CATH Urine Color YELLOW Urine Turbidity CLEAR Urine pH 6.5 Ur Specific [place] 1.018 Urine Protein TRACE A Ur Glucose (Stick) NEGATIVE Ur Ketones (Stick) NEGATIVE Urine Blood NEGATIVE Urine Nitrite NEGATIVE Urine Bilirubin NEGATIVE Urobilinogen Dipstick NORMAL Urine Leukocytes NEGATIVE Urine WBC (Auto) <10 Urine RBC (Auto) <10 U Epithel Cells (Auto) >10 A Urine Bacteria (Auto) 1+ Urine Opiates Screen NONE DETECTED Ur Oxycodone Screen NONE DETECTED Ur Methadone, Qual NONE DETECTED Ur Barbiturates Screen NONE DETECTED Ur Phencyclidine Scrn NONE DETECTED Ur Amphetamines Screen NONE DETECTED U Benzodiazepines Scrn NONE DETECTED Urine Cocaine Screen NONE DETECTED U Cannabinoids Screen NONE DETECTED Orders Category Date Time Status Cardiac Monitoring DIRECTED Care 04/02/19 13:37 Active Finger Stick Blood Sugar (ED) DIRECTED Care 04/02/19 13:37 Active Misc. NRSG Communication Order DIRECTED Care 04/02/19 13:37 Active Oxygen Therapy- ED Nursing DIRECTED Care 04/02/19 13:37 Active Saline Loc NOW Care 04/02/19 13:37 Active CHEST-PORTABLE [RAD] Stat Exams 04/02/19 13:[address] HEAD W/O CONTRAST [CT] Stat Exams 04/02/19 13:37 Completed CBC WITH ELECTRONIC DIFF [HEME] Stat Lab 04/02/19 14:03 Completed COMPREHENSIVE METABOLIC PANEL [CHEM] Stat Lab 04/02/19 14:03 Completed PROTIME WITH INR [COAG] Stat Lab 04/02/19 14:03 Completed PTT [COAG] Stat Lab 04/02/19 14:03 Completed TROPONIN T HIGH SENSITIVITY Stat Lab 04/02/19 14:03 Completed URINALYSIS W/POSS RFLX CULT [URINALYSIS] Stat Lab 04/02/19 14:33 Completed URINE DRUG SCREEN Stat Lab 04/02/19 14:33 Completed 0.9% Sodium Chloride Inj [Ns] 1,000 ml Med 04/02/19 13:08 Discontinued IV 125 mls/hr 0.9% Sodium Chloride Inj [Ns] 1,000 ml Med 04/02/19 13:37 Active IV 125 mls/hr Aspirin Med 04/02/19 15:26 Discontinued 325 mg PO NOW ONE EKG [EKG] Stat Ther 04/02/19 13:37 Draft sx have resolved at time of recheck in the ER. Pt agrees to be admitted for sx of TIA. Result Diagrams: 04/02/19 14:03 04/02/19 14:03 - REASSESSMENT Reassessment #1 Time Reassessed: 15:03 Status: improving ( at bedside) - EKG 1 Time of EKG reading by physician:: 12:58 EKG Read and Signed by:: Joel Singer EKG Interpretation (*Must complete 3 of following elements*): Abnormal Rate: 115 Rhythm: sinus rhythm w/ freq pvc [place]: normal QRS: PVC's HI Interval: normal ST Wave: normal - XRAY 1 XRAY: Bilateral XRAY Study: Chest Impression: See EMR Report (EXAM: CHEST-PORTABLE 04/02/2019 HISTORY: stroke like symptoms TECHNIQUE: AP portable at 1346 COMMENT: There is severe arthritic change in the shoulders including the acromioclavicular joints with cysts in both humeral heads. There is no evidence of acute cardiac or pulmonary disease. Compared to 02/09/2019 the appearance the chest has not changed significantly. IMPRESSION: No evidence of acute disease. Electronically signed by Jose Lacy 04/02/2019 1:52 PM 04/02/19 1352 Interpreting Physician: Jose Lacy MD Dictated Date/Time: 04/02/19 1351 cc: Joel Singer MD; None,PCP) - CT/MRI 1 CT Study: Head Impression: See EMR Report (EXAM: CT HEAD W/O CONTRAST 04/02/2019 HISTORY: stroke like symptoms TECHNIQUE: This exam was performed using automated exposure control, adjustment of mA or kV according to patient size, and/or use of iterative reconstruction technique. COMMENT: There is no evidence of mass effect, bleed, or abnormal extra-axial fluid collection. Compared to 09/01/2015 there has been no significant change in the appearance of the brain. The calvarium is intact. The visualized paranasal sinuses are clear. IMPRESSION: No evidence of acute intracranial disease. Electronically signed by Jose Lacy 04/02/2019 2:54 PM 04/02/19 1454 Interpreting Physician: Jose Lacy MD Dictated Date/Time: 04/02/19 1452 cc: Joel Singer MD; None,PCP) - CONSULTS/PCP/HOSPITALIST Notification #1 *Consult/PCP/Hospitalist*: hospitalist Time Discussed: 15:25 Consult Disposition: Will see in ED, Admit Departure - Departure Date of Disposition Decision: 04/02/19 Time of Disposition Decision: 15:20 DIAGNOSIS: TIA (transient ischemic attack), Tobacco use disorder Anemia Qualifiers: Anemia type: unspecified type Qualified Code(s): D64.9 - Anemia, unspecified Disposition: ADMITTED INPATIENT 09 Certified Medical Emergency: Emergent Condition: Fair Referrals and Follow-Ups: None,PCP [Primary Care Provider] - - Critical Care Note This patient required my direct & personal management of CC.: No Attestation - Physician/ GRAHAM Attestation Patient care was provided by Advanced Practice Provider:: No The physician spent face to face time with patient:: Yes Advanced Practice Provider documentation review:: Supervising physician onsite and consulted in the evaluation and care of this patient. The physician did have a face to face encounter with the patient. - NIH Stroke Scale NIH Type: Initial Evaluation Level of Consciousness: 0-Alert LOC Questions (ask month and age): 0-Answers Both Correctly LOC Commands (ask to open & close eyes;make a fist, let go): 0-Obeys Both Correctly Best Gaze (horizontal eye movement): 0-Normal Visual (use finger movement, counting or visual threat): 0-No Visual Loss Facial Palsy (show teeth or raise eyebrows & close eyes tght: 0-Symmetrical Movement Motor Function-left arm: 0-Normal Motor Function-right arm: 0-Normal Motor Function-left le-Normal Motor Function-right le-Normal Limb Ataxia(cewgoe-oboh-rgoojw, or heel to walker): 0-No Ataxia Sensory(pin prick to face,arms,trunk,legs-compare side/side): 0-No Ataxia Best Language(name item/read sentence.Ex-Down to Earth): 0-No Aphasia Dysarthria(Pt read words or say words Ex.Mama,Tip-Top,Thanks: 0-Normal Articulation Extinction and Inattention: 0-Normal NIH Total Score: 0 This chart was documented by the indicated scribe, (Faye Murdock, [place]) and accurately reflects the services I performed and decisions made by me, Joel Singer MD, as attested by the provider's signature.
[2019-04-02] MEDS ORDERED: ZOFRAN IV PRN (17:56)
[2019-04-02] MEDS ORDERED: FLU VACCINE IM ONE (18:26)
[2019-04-02] MEDS ORDERED: LIPITOR PO ONE (19:59)
--- NOTE | 2019-04-02 21:05 | HISTORY AND PHYSICAL ---
PRIMARY CARE PHYSICIAN: None. CHIEF COMPLAINT: Of right facial numbness with right arm numbness and some shortness of breath, dizziness and chest pressure this morning when she woke up. HISTORY OF PRESENTING ILLNESS: This is a 58-year-old female who presents to [facility] with complaints when she woke up this morning of right facial numbness, right arm numbness, shortness of breath, dizziness and chest pressure. Head CT was no evidence of acute intracranial disease. Patient is currently sitting up in the bed, eating a sandwich and drinking water. Staff does report in review of previous medical records that she has frequent visits to the emergency room, she is homeless and is often looking for mcc and food and blankets and will often make up symptoms in order to be admitted but she also is noted to be leukopenic with a white blood cell count of 1.77. She has been seen numerous times on her previous hospitalizations by Dr. Young and he has documented that the patient does not follow up on outpatient basis for further testing but at this time we will admit her and rule out for CVA and it appears this was a TIA as her symptoms have basically resolved now. She will be admitted for further evaluation and treatment. PAST MEDICAL HISTORY: Coronary artery disease with VT, hypertension, hyperlipidemia, asthma, chronic pain, anxiety, diabetes type 2. PAST SURGICAL HISTORY: Of a bilateral tubal ligation, hysterectomy, cholecystectomy, heart stent placement and a cleft palate repair. FAMILY HISTORY: Reviewed and noncontributory. SOCIAL HISTORY: She currently resides in a homeless mcc, smokes 1/2 to 3/4 packs of cigarettes a day. Denies any alcohol or illicit drug use. ALLERGIES: PENICILLIN AND LATEX. HOME MEDICATIONS: A current list will need to be obtained, reconciled, reviewed and restarted as appropriate. Will place an order for nursing to update and confirm home medications. LABORATORY DATA: Showed a white blood cell count of 1.77, hemoglobin 9.5, hematocrit 30.9, platelets 257,000, PT and INR of 12.5 and 0.93. Sodium 137, potassium 5.1, chloride 99, CO2 22, BUN of 19, creatinine 0.9, glucose 87. Urinalysis was negative. Urine drug screen was negative. Head CT showed no evidence of acute intracranial disease. Chest x-ray showed no evidence of acute disease. EKG showed sinus rhythm with frequent PVCs at 115. REVIEW OF SYSTEMS: She denied any fever, chills, blurred vision. She did have some dizziness, right facial numbness that radiated to her right arm, shortness of breath, chest pressure. Denied any chest pain. Denied any abdominal pain, constipation, diarrhea, burning or hurting with urination. PHYSICAL EXAMINATION: On arrival she had a temperature of 97.5 degrees, pulse 87, respirations 18, blood pressure 121/74, saturating 96% on room air. GENERAL: This is a 58-year-old female who is sitting up in the bed eating a sandwich and answers questions appropriately. HEENT: Normocephalic, atraumatic. Normal ENT inspection. Oropharynx and nares are clear. Pupils are equal, round, reactive to light, accommodation. Extraocular movements are intact. NECK: Normal inspection, normal range of motion. LUNGS: Clear to auscultation bilaterally with equal lung expansion and chest wall movement. HEART: Regular rate and rhythm. No murmurs, rubs, or gallops. ABDOMEN: Soft, nontender, nondistended. Bowel sounds are present x4 quadrants. MUSCULOSKELETAL: She has 5/5 strength x4 extremities. NEUROLOGICAL: The cranial nerves 2-12 appear grossly intact. ASSESSMENT: 1. Transient ischemic attack versus cerebrovascular accident, most likely is a transient ischemic attack. 2. Hypertension. 3. Diabetes type 2. 4. Tobacco abuse. OUR PLAN: She will be admitted to the medical unit, placed on telemetry, diabetic diet. SCDs for DVT prophylaxis. Will place her on reverse isolation. We will do an MRI of the brain without contrast. We will update and confirm home medications and further orders after seen by attending. Dictated by NABOR Marvin for Cam Shepard MD cc: NABOR Marvin MD I agree with most components of history, physical, assessment and plan. A separate addendum has been dictated. ASHER
[2019-04-02] MEDS: ULTRAM PO PRN (21:46)
[2019-04-02] MEDS: NICODERM PATCH TD PRN (21:47)
[2019-04-03] MEDS: TYLENOL PO PRN (01:05)
--- NOTE | 2019-04-03 02:08 | HISTORY AND PHYSICAL ---
ADDENDUM: Addendum to history and physical dictated by nurse practitioner. I agree with most components of history, physical, assessment and plan. In brief, Ms. Reynaga is a 58-year-old lady with past medical history of coronary artery disease with stent around 2013, active tobacco abuse and chronic leukopenia. She comes in with chief complaints of right-sided facial and right upper extremity and lower extremity numbness which started today morning while she was having her breakfast. The entire episode did not get better over several hours, so she decided to come to the emergency room. In the emergency room she was found to have temperature of 97.5 degrees, pulse of 78, respiratory rate 16, blood pressure of 121/74. The hospitalist team was consulted for further management of TIA. Currently on physical examination she has missing teeth on oral cavity. Air entry bilaterally equal. No wheeze or crackles. S1, S2 normal. No murmur or gallop. Abdomen is soft, nontender. No hepatosplenomegaly. No lower extremity edema. She is alert and oriented x3. On neurological examination she does not have any facial droop or ptosis. Extraocular movements are equal and adequate bilateral. Her facial sensation is equal. Her tongue appears midline. She has normal speech and cough. She is able to shrug her shoulders. She is able to puff bilateral cheeks equally. She has intact sensation in bilateral upper and lower extremities. Her power appears to be 4/5 in bilateral elbow joints and ankle joints. She does have severe ulnar deformity of bilateral multiple metacarpophalangeal joints, likely because of arthritis. She is not able to do overhead abduction because of shoulder pain. Her reflexes are 1+ bilateral biceps and knee. I could not elicit Babinski because she was feeling ticklish. Labs suggestive of WBC of 12.7, hemoglobin of 9.5, platelets of 257,000. Electrolytes show BUN 19, creatinine 0.9. ASSESSMENT AND PLAN: 1. Right facial, upper extremity and lower extremity numbness, likely because of transient ischemic attack. Follow up MRI brain, ultrasound carotid and echocardiogram. I will keep her on aspirin and high-dose atorvastatin. 2. History of coronary artery disease, status post stent in year 2013, and complaints of chest pain on presentation. Her electrocardiogram had prolonged QTc, sinus rhythm with frequent premature ventricular contractions without any acute ST elevation. She received a dose of aspirin. I will keep her on aspirin, atorvastatin. Follow up with serial troponins and repeat electrocardiogram tomorrow. 3. Active tobacco abuse. I will start her on nicotine patch as needed. I counseled her about smoking cessation and she agreed. 4. Severe osteoarthritis of bilateral shoulder joints and bilateral metacarpophalangeal joints leading to ulnar deformities. I will keep her on acetaminophen and tramadol as needed. According to the history given to me, the patient states that she developed this contracture after mechanical fall 2 months ago. I will consult orthopedic physician for further recommendations. 5. Disposition: Monitor patient inside the hospital as I trend her troponins, and follow up with echocardiogram and further brain studies. Plan of care discussed with the patient. Her questions have been answered. cc: Cam Shepard MD
[2019-04-03] MEDS: ULTRAM PO PRN ×3 (06:22→19:16)
--- NOTE | 2019-04-03 08:06 | EKG Report ---
Test Performed on : 04/03/2019 07:33:35 AM Test Reason : Follow up EKG Blood Pressure : / mmHG Vent. Rate : 090 BPM Atrial Rate : 090 BPM P-R Int : 148 ms QRS Dur : 092 ms QT Int : 354 ms P-R-T Axes : 003 -16 089 degrees QTc Int : 433 ms Sinus rhythm. with occasional premature ventricular complexes. Otherwise normal ECG When compared with ECG of 02-APR-2019 12:58, (Unconfirmed) No significant change was found Confirmed by Kalyn Desir MD ([id number]) on 04/03/2019 8:32:52 AM
[2019-04-03 08:38] LABS: EOS# 0.12 X1000 (0.0-0.7); EOS% 8.6 % (0.0-10.0); HEMATOCRIT 29.4 % (37.0-47.0); HEMOGLOBIN 8.9 g/dL (12.0-16.0); LYMPH# 0.47 X1000 (1.2-3.4); LYMPH% 33.6 % (20.5-51.1); MCHC 30.3 g/dL (33-37); MONO# 0.15 X1000 (0.11-0.59); MONO% 10.7 % (1.7-9.3); MPV 8.3 FL (7.4-10.4); NEUT# 0.66 X1000 (1.4-6.5); NEUT% 47.1 % (42.2-75.2); PLT 265 X1000 (130-400); RBC 3.42 XMIL (4.2-5.4); RDW 14.5 % (11.5-14.5)
[2019-04-03 08:42] LABS: CHOLESTEROL 144 mg/dL (0-200); HDL 35 mg/dL (45-65); LDL 77 mg/dL; TRIGLYCERIDES 158 mg/dL (35-135); VLDL 32 mg/dL
[2019-04-03 09:06] LABS: AGAP 10; BUN 25 mg/dL (8-22); CHLORIDE 95 mmol/L (98-107); COSMO 268; CREATININE 0.8 mg/dL (0.5-0.9); ESTIMATED GFR > 60; GLUCOSE 83 mg/dL (70-104); POTASSIUM 4.7 mmol/L (3.5-5.1); SODIUM 132 mmol/L (136-145); TCO2 27 mmol/L (25-35)
--- NOTE | 2019-04-03 09:58 | Diag Imaging Result Doc PS360 ---
EXAM: MRI BRAIN W/O CONTRAST INDICATION: TIA vs CVA COMPARISON: CT head dated 04/02/2019. No prior MRI brain is available for comparison. FINDINGS: There is no evidence of acute infarct. There are a few scattered tiny foci of T2/FLAIR hyperintensity in the periventricular and subcortical white matter suggesting minimal microangiopathy. There is mild to moderate diffuse brain atrophy. There is no discrete intracranial mass, mass effect, or intracranial hemorrhage. The surrounding soft tissues and bony structures are essentially unremarkable. IMPRESSION: Mild to moderate brain atrophy and suggestion of minimal white matter microangiopathy. No evidence of acute infarct or other definite acute pathology. Electronically signed by Duncan Taveras 04/03/2019 9:55 AM
--- NOTE | 2019-04-03 10:28 | Diag Imaging Result Doc PS360 ---
EXAM: MRA BRAIN W/O CONTRAST INDICATION: Right facial, upper extremity, lower extremity numbness TECHNIQUE: Axial 3-D [id number] images and 3-D MIPS of the cerebral vasculature were obtained. COMPARISON: None. FINDINGS: There is a short segment of mild to moderate stenosis involving the supraclinoid segment of the left ICA. The right ICA appears to be widely patent. The left GEORGE is hypoplastic as compared to the right. There is focal signal dropout associated with the A3 segment of the left and right GEORGE at about the same level. It is possible this is artifactual due to motion. In any case, there is quick reconstitution of flow. There appears to be variant anatomy with branches of the left GEORGE supplying the anterior frontal lobes on the right and the left in the right ICA supplying both hemispheres more posteriorly. The MCAs and electronics instructor appear patent throughout their courses. No cerebral aneurysm is appreciated. IMPRESSION: 1.Suggestion of mild to moderate focal stenosis of the supraclinoid segment of the left ICA. 2.Apparent variant anatomy involving the ACAs. Electronically signed by Duncan Taveras 04/03/2019 10:26 AM
[2019-04-03] MEDS: ASPIRIN PO SCH (11:19)
[2019-04-03] MEDS ORDERED: VENTOLIN HFA INH PRN (12:57)
[2019-04-03] MEDS ORDERED: GRANIX SUBQ ONE (16:09)
[2019-04-03] MEDS ORDERED: ZOSTRIX TOP PRN (16:12)
--- NOTE | 2019-04-03 16:26 | EKG Report ---
Test Performed on : 04/03/2019 4:14:11 PM Test Reason : Tachycardia Blood Pressure : / mmHG Vent. Rate : 084 BPM Atrial Rate : 084 BPM P-R Int : 144 ms QRS Dur : 094 ms QT Int : 340 ms P-R-T Axes : 016 022 159 degrees QTc Int : 401 ms Normal sinus rhythm. Nonspecific T wave abnormality Abnormal ECG When compared with ECG of 03-APR-2019 07:33, premature ventricular complexes. are no longer present Confirmed by Kalyn Desir MD ([id number]) on 04/05/2019 12:15:58 PM
--- NOTE | 2019-04-03 19:19 | ECHO REPORT ---
ORDER DATE: 04/02/2019 INDICATION: A 58-year-old female with a transient ischemic attack. M-MODE MEASUREMENTS: Left ventricle end diastole: 4.9. Left ventricle end systole: 4.5. Posterior wall: 1.1. Interventricular septum: 1.1. Left atrium: 3.7. Aortic diameter: 2.9. SUMMARY OF 2-DIMENSIONAL IMAGIN. The study is difficult. Global left ventricular systolic function is probably in the neighborhood of 45%. There is evidence of an area of akinesis involving the mid-lateral, mid- posterior and distal lateral wall, and also the basal lateral wall. That would be consistent with a focal infarct in the territory of the circumflex. The inferior wall and the septum as well as the anterior wall and apex show very good contractility. 2. The patient is tachycardic. The possibility of atrial flutter cannot be excluded. I do not see a clear-cut normal mitral inflow. 3. The mitral valve opens normally. Color flow mapping unremarkable. 4. The aortic valve opens normally. Color flow mapping unremarkable. 5. There is no aortic stenosis. 6. The pulmonic valve was not well visualized. 7. The tricuspid valve showed no significant regurgitation. 8. The right-sided chambers are not significantly enlarged. 9. The inferior vena cava is mildly prominent. Pulmonary pressure is somewhere in the neighborhood of 40 to 45 mmHg. 10.There is no pericardial effusion, no mass, and no thrombus. SUMMARY: 1. This study was difficult. The patient is tachycardiac. There is a suggestion of a focal infarct or scar in the lateral wall territory of the circumflex. Ejection fraction, as I said, is probably in the neighborhood of 45%. 2. No evidence of any significant valvular abnormality . 3. I cannot comment properly on diastolic function because the patient may be in atrial flutter. 4. No pericardial effusion, no mass, and no thrombus. Clinical correlation recommended. cc: MD Cam Coffey MD
[2019-04-03] MEDS: LIPITOR PO SCH (20:11)
[2019-04-03] MEDS: NICODERM PATCH TD PRN (20:19)
[2019-04-03] MEDS: ROBAXIN PO PRN (20:19)
--- NOTE | 2019-04-03 20:35 | PROGRESS NOTE ---
DATE: 04/03/2019 INTERVAL HISTORY: No acute events overnight. SUBJECTIVE: Ms. Reynaga is feeling better. She denies any more numbness or weakness. She was able to go to the bathroom. However, she is complaining of diffuse body aches. When I ask her to walk in the hallway, she however stated that she suddenly started feeling numbness of the right lip and right upper and lower extremities, and she had to sit down. CURRENT VITAL SIGNS: Temperature 98 degrees, pulse 119, respiratory rate 24, blood pressure 120/63. She is saturating 100% on room air. PHYSICAL EXAMINATION: General: Not in any acute distress. Oral cavity: Moist. Lungs: Air entry bilaterally equal. No wheeze, rhonchi, or crackles. Cardiovascular: S1, S2 normal. Appears tachycardic. No murmur, rub, or gallop. Abdomen: Soft, nontender. Extremities: No lower extremity edema. She does have bilateral knee joint swelling and ulnar deviation of bilateral fingers at metacarpophalangeal joints because of arthritis. LABS: Suggestive of worsening leukopenia, worsening anemia, normal platelet count. She does have hyponatremia with sodium of 132, chloride of 95, BUN of 25, creatinine 0.8. Her cholesterol profile suggests LDL of 77. MICROBIOLOGY: No new data. IMAGING: Brain MRI has [id number] brain atrophy with minimal white matter microangiopathy without any evidence of acute infarct. Brain MRA has mild to moderate focal stenosis of the supraclinoid segment of the left ICA. ASSESSMENT AND PLAN: 1. Right facial, upper extremity and lower extremity numbness, likely because of transient ischemic attack. The patient developed recurrent symptoms on physical exertion today during my examination, though she did not have any focal weakness. On sensory examination, she did feel less touch on the right upper extremity and face as compared to left to touch. Her MR imaging is unremarkable except mild to moderate narrowing of the left intracranial internal carotid artery. Preliminary ultrasound carotid has been unremarkable. Echocardiogram is pending. I will keep her on aspirin and high-dose atorvastatin. I will appreciate Neurology recommendation about her recurrent facial numbness. 2. History of coronary artery disease, status post stent in 2013, and complaints of chest pain on presentation. Her electrocardiogram was remarkable only for prolonged QTc and troponins have been negative. I will follow up with another electrocardiogram for her tachycardia. 3. Active tobacco abuse. Continue nicotine patch as needed. She was counseled about smoking cessation. 4. Severe osteoarthritis of bilateral shoulder joints, bilateral metacarpophalangeal joints leading to ulnar deformities, and osteoarthritis pain. Continue acetaminophen and tramadol as needed. I will give her topical capsaicin. I will also consult Orthopedics as per patient's request since she mentioned that her hand deformities developed after a fall 2 months. 5. Leukopenia with neutropenia. Previously, bone marrow biopsy in 2019 was unremarkable. I will consult Oncology if she needs any further management. I will give her a one time dose of filgrastim. DISPOSITION: I am awaiting further neurology recommendations regarding her recurrent numbness. Based on that, I will consider disposition and possibly discharge in the next 24 to 48 hours. Physical Therapy has been consulted. cc: Cam Shepard MD
--- NOTE | 2019-04-03 21:30 | NEUROLOGY CONSULTATION ---
DATE: 04/03/2019 SUBJECTIVE: Ms. Reynaga is 58 years old, and she reports right-sided numbness, weakness which may have been right-sided or bilateral, headache. History from the patient is that she had a nap yesterday and woke noticing right-sided numbness involving her face, scalp, trunk, arm and leg. She reports having difficulty holding a plate with her right hand. She told me initially that weakness was confined to the right limbs and later said she was weak in both legs, had trouble getting up because of weakness proximally in both legs, could not raise either arm. During this time, she believes her speech was so slurred she could hardly make herself understood, but she did not have any trouble understanding what people said to her. There was no vision disturbance. She did have a headache, but cannot describe that specifically now. She presented to the hospital and was admitted. She believes that she started getting better later in the day yesterday but did not get back to normal. Today, she continues to improve, but believes she is still not back to baseline. She has not had identical spell in the past. She has never had an episode of unilateral numbness or weakness in the past, by her report. There is no history of diagnosed stroke or other neurologic event. She reports a history of approximately 20 episodes over the last 4 or 5 years of "blacking out." She reports spells typically begin with spots in her vision and a sense of lightheadedness, which may resolve if she sits down. She has passed out and fallen and sustained some bruises but no more serious injury. Episodes have not been associated with incontinence or focal neurologic deficit. There has never been rigidity, jerking or other seizure-like behavior. She has been immediately alert and oriented on regaining consciousness after these episodes. Workup here this admission includes brain MRI showing nothing remarkable. Brain MRA raises question of left supraclinoid internal carotid stenosis. Lab shows persistent leukopenia, which is an old problem. There is anemia. Platelet count is normal. Urine drug screen was all negative. Chemistry is unremarkable. She has been afebrile. Heart rate has ranged 80s to 120s. Systolic blood pressures have ranged 100 to 140s. Past history is remarkable for ischemic heart disease, coronary stenting, significant osteoarthritis, continued cigarette smoking. OBJECTIVE: On exam, Ms. Reynaga is awake, alert, attentive, oriented. Some of her responses to my questions are a little bit harsh, but generally appropriate. Speech is not dysarthric. Language function is intact. Recent and remote memory are good. Head and neck are unremarkable. Visual clinton are full to confrontational finger counting. Extraocular movements are full. Facial motility is normal and symmetric. Gag is intact. Tongue is midline. She can hear. Shoulder shrug is equal. She has good power in the arms and legs. Effort fluctuates significantly, and she reports that is due to discomfort in almost all limbs, worse with demonstration of motor power in any group. Limb tone is symmetric. She did well on [id number]-wpch testing bilaterally. She reports symmetric sensation over the hands and feet. Proprioception is good. Romberg is absent. Gait is antalgic without other features. Reflexes are 1+ at the knees, 1+ at the ankles, 1+ at the wrists symmetrically. Plantar response is silent bilaterally. IMPRESSION: Reported right-sided numbness, weakness which may have been right- sided or bilateral. I do not find definite neurologic deficit now. 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 I encouraged her to continue off cigarettes, to take her medicines as directed and to be aggressive with management of her risk factors for cerebrovascular ischemic problems. Carotid ultrasound today was unremarkable. Echocardiogram has been done with report pending. I do not find need for further urgent workup from neurologic standpoint. She was taking aspirin before admission and that has continued here. I would continue aspirin, statin, counseling for smoking cessation. I will be glad to see Ms. Reynaga again if needed. Thanks for asking Neurology to see her. cc: Luis Carlos Maguire III, MD [facility]
[2019-04-04] MEDS: TYLENOL PO PRN (02:16)
[2019-04-04] MEDS: ULTRAM PO PRN ×3 (10:33→23:46)
[2019-04-04] MEDS: ASPIRIN PO SCH (10:33)
[2019-04-04] MEDS: ROBAXIN PO PRN ×3 (10:33→23:47)
--- NOTE | 2019-04-04 12:59 | ORTHOPAEDICS CONSULTATION ---
DATE: 04/04/2019 CHIEF COMPLAINT: Facial numbness, right arm numbness, and shortness of breath. HISTORY OF PRESENT ILLNESS: Ms. Reynaga is a 58-year-old female who was admitted to the hospitalist service for a cerebrovascular accident. She has been in the hospital for a few days now. Orthopaedics was asked to see her secondary to her hand deformities and her shoulder pain. She tells me that she has had the hand deformities for a few years now and they have progressively been getting a little bit worse as far as her function. They do cause her some pain. She does not really have a lot of swelling with it. PAST MEDICAL HISTORY: Rheumatoid arthritis, coronary artery disease with myocardial infarction, hypertension, asthma, and type 2 diabetes. PAST SURGICAL HISTORY: Tubal ligation, cardiac stents, cholecystectomy, and hysterectomy. SOCIAL HISTORY: She is homeless. She does smoke about half a pack to three-fourths of a pack a day. ALLERGIES: Penicillin and latex. MEDICATIONS: Per the medical record. REVIEW OF SYSTEMS: Positive for a recent stroke and this hand pain. PHYSICAL EXAMINATION: General: Ms. Reynaga is lying in bed this morning. She was in no acute distress. She was answering questions appropriately. Head and Neck: Normocephalic, atraumatic. Respiratory: She has nonlabored breathing. Cardiovascular: She had a regular rate. Gastrointestinal: The abdomen was nondistended. Bilateral Upper Extremity Exam: Looking at both hands, both hands have a lot of ulnar deviation of all the fingers. On the right side she cannot extend at the MCP joints. She has very little functional motion overall. I do not see any skin ulcerations or abrasions. She does not have any areas of focal swelling and when I palpate over her bones she does not have any bony tenderness to palpation. On the left upper extremity exam she can get her fingers out a little bit more extended at the MCP joints than on the right side but all of her fingers are going off into ulnar deviation and they are still stiff and I cannot get her all the way extended. Still there is no bony tenderness to palpation. There are no areas of swelling. ASSESSMENT: Rheumatoid hands bilaterally. PLAN: I have discussed with Ms. Reynaga about her hands. Unfortunately, this is a tough problem. This looks like more of an end-stage rheumatoid sequelae on the MCP joints. From an orthopaedic standpoint there is not a lot to do nonoperatively. I did encourage her to try to keep her motion as much as possible. From a surgical standpoint it would require fairly extensive rheumatoid hand reconstruction and she would need to see one of the hand specialist in [place] for that surgical procedure. I discussed with her that it would be more than likely an outpatient procedure so when she gets out of the hospital would could provide her a referral up there to see one of the hand surgeons for that. It would either be Dr. Gale or Dr. Vilchis more than likely. Thanks for the consult. If we can be of any more service let us know. cc: Hilario Sabillon MD
[2019-04-04 15:25] LABS: IRON SATURATION 12 %; TIBC 196 ug/dL; TOTAL IRON 23 ug/dL (49-151); UNBOUND IRON 173 ug/dL (112-346)
--- NOTE | 2019-04-04 20:29 | NEUROLOGY PROGRESS NOTE ---
DATE: 04/04/2019 Ms. Reynaga reports no further episodes of one-sided numbness, one-sided weakness, generalized weakness, or other neurologic problem. I do not have any new suggestions today from neurology standpoint. She has risk factors for cerebrovascular ischemic problems, and I encouraged her to be aggressive with management of those, specifically to continue off cigarettes. Thanks for asking us to see Ms. Reynaga. cc: MD ASHER Manzanares III
[2019-04-04] MEDS: LIPITOR PO SCH (21:18)
[2019-04-05 08:06] VITALS: BP 109/68
[2019-04-05] MEDS: ULTRAM PO PRN (08:20)
[2019-04-05 08:23] LABS: BASO# 0.01 X1000 (0.0-0.2); BASO% 0.4 % (0.0-0.8); EOS# 0.11 X1000 (0.0-0.7); EOS% 4.4 % (0.0-10.0); HEMATOCRIT 29.8 % (37.0-47.0); HEMOGLOBIN 9.3 g/dL (12.0-16.0); LYMPH# 0.54 X1000 (1.2-3.4); LYMPH% 21.8 % (20.5-51.1); MCH 26.3 PG (27-31); MCHC 31.2 g/dL (33-37); MCV 84.4 FL (81-99); MONO# 0.25 X1000 (0.11-0.59); MONO% 10.1 % (1.7-9.3); MPV 8.1 FL (7.4-10.4); NEUT# 1.57 X1000 (1.4-6.5); NEUT% 63.3 % (42.2-75.2); PLT 249 X1000 (130-400); RBC 3.53 XMIL (4.2-5.4); RDW 14.8 % (11.5-14.5); WBC 2.48 X1000 (4.8-10.8)
[2019-04-05] MEDS: ASPIRIN PO SCH (08:52)
--- NOTE | 2019-04-05 13:31 | DISCHARGE SUMMARY ---
ADMISSION DATE: 04/02/2019 DISCHARGE DATE: 04/04/2019 DISCHARGE DISPOSITION: Home. DISCHARGE CONDITION: Hemodynamically stable. She does not have any stroke-like symptoms. DISCHARGE DIAGNOSES: 1. Transient ischemic attack leading to right facial upper extremity and lower extremity numbness. 2. Active tobacco abuse. 3. Severe osteoarthritis of bilateral shoulder, metacarpophalangeal and knee joints leading to bilateral ulnar deviation of metacarpophalangeal joints. 4. Chronic leukopenia with neutropenia. 5. Essential hypertension. 6. Active tobacco abuse. OTHER DIAGNOSES: 1. History of coronary artery disease with myocardial infarction requiring stent around year 2013. 2. History of hyperlipidemia. 3. History of chronic pain. 4. History of anxiety. 5. History of cleft palate repair. DISCHARGE MEDICATIONS: 1. Cyclobenzaprine 10 mg t.i.d. 2. Atorvastatin 40 mg at nighttime. 3. Albuterol sulfate inhalation every 6 hours as needed for shortness of breath. 4. Aspirin 81 mg daily. 5. Meloxicam 50 mg daily. 6. Nicotine patch 21 mg daily, 21 patches have been provided. DISCHARGE EXAMINATION: Vital Signs: At time of discharge, temperature 98.8 degrees, pulse 102, respiratory rate 14, blood pressure 95/64. She is saturating 96% on room air. HEENT: At the time of discharge, oral cavity is moist. Lungs: Air entry bilaterally equal. No wheeze, rhonchi, or crackles. Cardiovascular: S1, S2 normal. No murmur, rub, or gallop. Abdomen: Soft and nontender. Extremities: No lower extremity edema. Neurologic: She was alert and oriented x3. Her power was 5 out of 5 bilateral upper and lower extremity. LABORATORY: At the time of discharge, WBC 1.4, hemoglobin 8.9, and platelet 265,000. BUN 25 and creatinine 0.8. Vitamin B12 455. MICROBIOLOGY: At time of discharge none. IMAGIN. At the time of discharge, chest x-ray on presentation did not have evidence of acute disease. Head CT on 04/02/2019 did not have any evidence of acute intracranial disease. A brain MRI on 04/02 had [id number] brain atrophy and suggestion of minimal white matter microangiopathy without evidence of acute infarct. 2. Echocardiogram had ejection fraction of 45% without evidence of acute or significant abnormality. 3. Brain MRA had suggestion of mild to moderate focal stenosis of supraclinoid segment of left ICA, and there was apparent variant anatomy involving the GEORGE bilaterally. 4. Electrocardiogram on presentation had a sinus rhythm with premature ventricular complexes. CONSULTATION DURING HOSPITAL ADMISSION: 1. Neurology, Dr. Maguire. 2. Orthoped[address] Sabillon. HOSPITAL COURSE SUMMARY: Ms. Reynaga is a 58-year-old lady with past medical history of coronary artery disease with stent around 2013, active tobacco abuse, chronic leukopenia, who came in with chief complaints of right-sided facial, upper extremity and right-sided facial, right upper extremity, and right lower extremity numbness which had started several hours prior to presentation when she was having breakfast in the morning time. The entire episode did not get better over several hours, so she decided to come to the emergency room. In the emergency room, she was found to have temperature of 97.5 degrees, pulse 78, respiratory rate 16, blood pressure 121/75. Head CT was unremarkable for any acute pathology so the hospitalist team was consulted for further management of suspected transient ischemic attack. The patient was admitted and TIA workup was performed including MRI of the brain, MRA of the brain, ultrasound carotids, and echocardiogram. They all were largely unremarkable. There was no identifiable new acute infarct on the brain MRI. Neurology team was also involved. However, they did not find any objective evidence of weakness or sensory abnormality. It was decided to treat her transient ischemic attack with aggressive risk factor modification including tight control of her blood pressure. She was kept on her home aspirin, and high-dose atorvastatin was started, and she was prescribed atorvastatin. She was extensively counseled about smoking cessation, which she understood. At the time of discharge, she did not have any numbness or weakness. Orthopedic Team was also consulted for her severe osteoarthritis of bilateral shoulder and knee as well as metacarpophalangeal joint who had recommended outpatient management. She probably had some rheumatoid arthritis related changes, and she was advised to have outpatient followup with Orthopedics at [facility] who specializes in hand surgeries. She also was found to have chronic leukopenia and neutropenia. Apparently, she was admitted with similar findings multiple times in the past, and bone marrow biopsy performed in August of 2018 had hypercellular hematopoietic tissues with trilineage hematopoiesis, and left shift of granulocyte, myeloblasts and occasional reactive lymphoid aggregates without dysplastic WBCs or circulating blasts. TIME SPENT: At the time of discharge, 25 minutes were spent discharging the patient. Plan of care extensively discussed with her. Her questions were answered. cc: Cam Shepard MD MTDD
--- NOTE | 2019-04-05 16:01 | PROGRESS NOTE ---
DATE: 04/05/2019 Overnight events, Ms. Reynaga could not be discharged yesterday since we were not able to get in touch with her facility. SUBJECTIVE: Ms. Reynaga denies new complaints. She denies any more numbness or tingling. VITALS: Temperature 98.4 degrees, pulse 110, respiratory 18, blood pressure 109/68, saturating 99% on room air. PHYSICAL EXAMINATION: She is not in any acute distress. Oral Cavity: Moist. Lungs: Air entry bilaterally equal. No wheeze, rhonchi, crackles. Cardiovascular: S1, S2 normal. No gallop. Abdomen: Soft, nontender. No lower extremity edema. She is eating her meal at the moment. LABORATORY: Her CBC suggests improvement in neutrophil count to 1.57. ASSESSMENT: 1. Right facial, upper extremity and lower extremity numbness with negative workup, likely because of TIA. 2. History of coronary artery disease, status post stent in 2013. 3. Active tobacco abuse. 4. Severe osteoarthritis of multiple joints including shoulder, knee, as well as metacarpophalangeal joints. 5. Leukopenia and neutropenia with previously essentially unremarkable bone marrow. PLAN: We were able to get in touch with her facility today, so plan is to discharge her. She was advised about smoking cessation. She was also advised about following with Oncology outpatient, as well as following up with Orthopedics team in [facility]. All of her questions were answered. cc: Cam Shepard MD
--- NOTE | 2019-04-05 18:35 | Carotid Study ---
DATE: 04/02/2019 REFERRING PHYSICIAN: Cam Shepard MD. INTERPRETING PHYSICIAN: Edy Panchal MD. [employer]: [place]. INDICATION: The patient has right-sided numbness. FINDINGS: The velocities are noted. The right internal common carotid shows 1.0, left is 0.96. The percent stenosis is 0-39 percent on the right and 0-39 percent on the left. Antegrade flow is present. INTERPRETATION: Shallow plaque is present. The right side may be ulcerated. No significant stenosis is present. There is antegrade vertebral flow bilaterally. cc: MD Cam Jacobo MD
== END 2019-04-05 14:47 | disposition home or self-care (01) ==
LOC: SUPCPDRO → 3N 12:50 → ED 12:50
PROVIDERS: ATTEND Internal Medicine